=== PATIENT | female | born 1945 ===

== ENCOUNTER 2020-09-09 10:14 | Outpatient (REF) | payer MEDICARE, SELFPAY ==
--- NOTE | 2020-09-09 10:21 | MM_ITS ---
EXAMINATION: MM SCREENING DIGITAL BREAST TOMOSYNTHESIS, BILATERAL CLINICAL INFORMATION: Screening. Asymptomatic. Prior history papilloma and ADH. The lifetime risk of breast cancer based on the Tyrer-Cuzick Model is 16%. COMPARISON: Mammography: 09/04/2019, 09/02/2018, 08/20/2017 TECHNIQUE: Digital breast tomosynthesis is performed in both the craniocaudal and mediolateral oblique views along with computer-aided detection (CAD). Synthesized 2D images are generated from the tomosynthesis. FINDINGS: There are scattered areas of fibroglandular density (ACR BI-RADS breast composition Category b). There is stable scarring left breast upper outer quadrant. Some fine fibronodular parenchymal pattern is similar to previous exam. There is no developing density or interval architectural abnormality or abnormal calcifications. Low left axillary tail node again noted. No significant changes from prior studies. MM/MM tomosynthesis screening BI IMPRESSION: No significant changes from prior studies. ASSESSMENT: BI-RADS 2: Benign RECOMMENDATION: Routine annual mammography screening. This patient's information was entered into a reminder system with a target due date for their next mammogram.
== END 2020-09-09 10:15 | disposition home or self-care (01) ==
LOC: HO.MAMMO 10:14
PROVIDERS: PCP Internal Medicine; Visit Provider Internal Medicine
DX: Z12.31 Encounter for screening mammogram for malignant neoplasm of breast (principal)
CPT/HCPCS: 77063; 77067

== ENCOUNTER 2020-09-16 10:56 | Day surgery (SDC) | payer MEDICARE, SELFPAY ==
[2020-09-13 11:35] VITALS: BMI 38.0
--- NOTE | 2020-09-15 09:26 | P.CONAN_ITS ---
Documented by User: Allie Ahn 09/15/20 09:27 HPI - Anesthesia Eval Consult details Narrative: 75yo F for Colonoscopy [facility] Past Medical History Medical History (Updated 09/16/20 @ 11:34 by Tiana Ashley) Elevated cholesterol HTN (hypertension) IDDM (insulin dependent diabetes mellitus) Increased BMI Family History Family History (Updated 09/03/20 @ 08:52 by RENE Milligan) Father Diabetes Hypertension Mother No problems noted. Paternal Aunt Colon cancer Surgical History Surgical History (Updated 09/16/20 @ 11:28 by Tiana Ashley) H/O colonoscopy History of appendectomy History of cyst of breast Status post right knee replacement Social History Social History Smoking Status: Never smoker Use of substances other than those prescribed or required for medical reasons: No Advance Directives: No Advance Directives Information Provided: No Advance Directives on File: No Meds Allergies Allergy/AdvReac Type Severity Reaction Status Date / Time No Known Allergies Allergy Verified 09/03/20 08:49 Home Medications Medication Instructions Recorded Confirmed Type aspirin 1 tab PO DAILY 09/13/20 09/13/20 History dulaglutide [Trulicity] 1 mg SUBCUT QWEEK 09/13/20 09/13/20 History insulin detemir U-100 [Levemir 40 unit SUBCUT DAILY 09/13/20 09/13/20 History U-100 Insulin] losartan 1 tab PO DAILY 09/13/20 09/16/20 History metformin 1 tab PO BID 09/13/20 09/13/20 History simvastatin 1 tab PO BEDTIME 09/13/20 09/13/20 History Exam Exam Date and Time: September 15, 2020925 Height,Weight and Vital Signs: Height 5 ft 3 in Weight 97.522 kg Assessment and Plan Assessment Anesthesia Assessment: Chart Reviewed Documented by User: Tiana Ashley 09/16/20 11:35 [facility] Past Medical History Medical History (Updated 09/16/20 @ 11:34 by Tiana Ashley) Elevated cholesterol HTN (hypertension) IDDM (insulin dependent diabetes mellitus) Increased BMI Family History Family History (Updated 09/03/20 @ 08:52 by Alisson Mitchell Wilmer) Father Diabetes Hypertension Mother No problems noted. Paternal Aunt Colon cancer Family history of problems with anesthesia: No Surgical History Surgical History (Updated 09/16/20 @ 11:28 by Tiana Ashley) H/O colonoscopy History of appendectomy History of cyst of breast Status post right knee replacement History of Problems with Anesthesia: No Social History Social History Smoking Status: Never smoker Use of substances other than those prescribed or required for medical reasons: No Advance Directives: No Advance Directives Information Provided: No Advance Directives on File: No Meds Allergies Allergy/AdvReac Type Severity Reaction Status Date / Time No Known Allergies Allergy Verified 09/03/20 08:49 Home Medications Medication Instructions Recorded Confirmed Type aspirin 1 tab PO DAILY 09/13/20 09/13/20 History dulaglutide [Trulicity] 1 mg SUBCUT QWEEK 09/13/20 09/13/20 History insulin detemir U-100 [Levemir 40 unit SUBCUT DAILY 09/13/20 09/13/20 History U-100 Insulin] losartan 1 tab PO DAILY 09/13/20 09/16/20 History metformin 1 tab PO BID 09/13/20 09/13/20 History simvastatin 1 tab PO BEDTIME 09/13/20 09/13/20 History Exam Height,Weight and Vital Signs: Vital Signs Temp Pulse Resp BP Pulse Ox 09/16/20 11:28 97 F 81 18 200/68 H 98 Pertinent Lab Results Pertinent Lab Results: Lab Results 09/16/20 Range/Units 11:21 POC Glucose 116 H (60-115) mg/dL Airway Mallampati Class: III TM Dist: >3cm Neck ROM: Full Denture: Upper and Lower Heart: RRR Lungs: CTAB. Diminished Assessment and Plan Assessment Anesthesia Assessment: Anesthesia Plan Discussed and Chart Reviewed Final Anesthetic Review NPO: Yes ASA Class: III Final Preanesthetic Review: No Changes in Pt Med Stat, Meds/Allgs Chart Reviewed, Consent Obtained/Reviewed and Anes Risks/Benef Reviewed Patient Risk: Intermediate Procedure Risk: Low Anesthetic Plan Anesthetic Plan: MAC: Disposition: Standard PACU
--- NOTE | 2020-09-16 11:19 | MHC.SHP ---
Pre-Procedural Eval Section B Chief Complaint: SCREENING Relevant Family History (Specify if Yes): No Relevant Social History: None Present Medications: see Short Stay Collaborative assessment Medical History: Significant History (HTN, HLP, DM, ) History of Previous Operations: Relevant previous surgery/procedure and date(s) (appendectomy, knee replacement) Allergies: Allergies Allergy/AdvReac Type Severity Reaction Status Date / Time No Known Allergies Allergy Verified 09/03/20 08:49 Review of Systems Sugical H&P ROS: Negative: Constitution, Cardiovascular, Respiratory, Neurological, Psychiatric, Hem-Onc, Allergic/Immunologic, Gastrointestinal, Genitourinary, Musculoskeletal, Integumentary, Endocrine and Eyes/Ears/Nose/Throat Exam Surgical H&P Exam: Normal: HEENT, Normal: Heart, Normal: Lungs, Normal: Extremities, Normal: Abdomen, Normal: Skin and Normal: Neurological Plan Diagnosis/Plan: Unchanged Patient has been examined and remains a candidate for the planned procedure
--- NOTE | 2020-09-16 11:21 | PM.OP ---
Brief Operative Note Date of procedure: 09/16/20 Pre-op diagnosis: colon screen Post-op diagnosis: same Procedure: colonoscopy--see op note Surgeon: Grupo Neri MD Anesthesia: MAC Estimated blood loss (mL): 0 Condition: stable Disposition: PACU
--- NOTE | 2020-09-16 11:21 | W.PM.OPN ---
Operative Note Operative Note Narrative: Operative Information Procedure Description: Colonoscopy COLONOSCOPY Instrument: Olympus variable stiffness pediatric scope 190L Colonoscopy Monitoring: Vital signs and clinical assessment, continuous EKG monitoring, Pulse oximetry, Carbon Dioxide monitoring and blood pressure monitoring were done throughout the procedure. Colon withdrawal time was 29 minutes. Procedure: The patient was placed in the left lateral decubitis position and pre-procedure medications were administered. After a digital rectal examination of the ano-rectum, the video colonoscope was inserted into the rectum and advanced through the colon to the cecum The colonoscope was slowly withdrawn in a retrograde panoramic fashion and the colon mucosa was carefully examined including a retroflexed view of the rectum. Findings and interventions are described below. Procedure Difficulty: difficult due to looping, pressure applied Findings: Terminal Ileum-not intubated Ruelas diverticulosis with many wide mouthed tics including several that were inverted Cecum:normal Ascending Colon: normal Transverse Colon -normal Descending Colon:normal Sigmoid Colon: normal Rectum: Retroflexion with moderate sized inflammed internal hemorrhoids, grade II Anorectum - internal hemorrhoids seen on forward view Colon preparation: [place] Bowel Preparation Scale Right colon; 2 Transverse colon: 2 Left colon; 1 (0 = Unprepared colon segment with mucosa not seen due to solid stool that cannot be cleared. 1 = Portion of mucosa of the colon segment seen, but other areas of the colon segment not well seen due to staining, residual stool and/or opaque liquid. 2 = Minor amount of residual staining, small fragments of stool and/or opaque liquid, but mucosa of colon segment seen well. 3 = Entire mucosa of colon segment seen well with no residual staining, small fragments of stool or opaque liquid) Impression and Post Procedure Diagnosis: ruelas-diverticulosis internal hemorrhoids Plan: High fiber diet leaflet Avoid straining at stool, epsom salts and sitz bath, anusol supps or cream Repeat Colonoscopy in 5 years due to prep or earlier if clinically indicated next time use adult colonoscope Above findings were reviewed with the patient and relevant handouts were provided if indicated.
[2020-09-16 11:24] LABS: Glucose, Whole Blood 116 mg/dL (60-115)
[2020-09-16 11:28] VITALS: BP 200/68; PULSE 81; RESP 18; TEMP 36.1; O2SAT 98
[2020-09-16] MEDS: Lactated Ringers 1,000 ML 100 ML IVCONT (11:38)
[2020-09-16 12:23] VITALS: BP 88/53; PULSE 99; RESP 18; TEMP 36.5; O2SAT 95
[2020-09-16 12:36] VITALS: BP 146/67; PULSE 67; RESP 18; TEMP 36.1; O2SAT 97
--- NOTE | 2020-09-16 13:03 | HO.POSTANES ---
Post Anesthesia Evaluation Post Anesthesia Evaluation Vital Signs: Vital Signs Temp Pulse Resp BP Pulse Ox 09/16/20 12:36 97 F 67 18 146/67 H 97 09/16/20 12:23 97.7 F 99 18 88/53 L 95 09/16/20 11:28 97 F 81 18 200/68 H 98 Anesthesia: Monitored Mental Status: Awake Pain Control: Satisfactory Nausea/Vomiting: None Hydration: Adequate Anesthesia-Related Issues: No Anes. Related Issues
== END 2020-09-16 13:14 | disposition home or self-care (01) ==
PROVIDERS: PCP Internal Medicine; Visit Provider Internal Medicine Gastroenterology
PROC: 0DJD8ZZ Inspection of Lower Intestinal Tract, Via Natural or Artificial Opening Endoscopic (ICD-10-PCS; CPT 45378; principal; 2020-09-16 11:30)
DX: Z12.11 Encounter for screening for malignant neoplasm of colon (principal); K57.30 Diverticulosis of large intestine without perforation or abscess without bleeding; K64.1 Second degree hemorrhoids; I10 Essential (primary) hypertension; E11.9 Type 2 diabetes mellitus without complications; E78.00 Pure hypercholesterolemia, unspecified; Z79.4 Long term (current) use of insulin; Z79.899 Other long term (current) drug therapy; Z96.651 Presence of right artificial knee joint
CPT/HCPCS: G0121; 82947

== ENCOUNTER 2021-01-21 07:36 | Outpatient (REF) | payer MEDICARE, SELFPAY | END 2021-01-21 07:37 | disposition home or self-care (01) | LOC: HO.LAB 07:36 | PROVIDERS: Visit Provider Internal Medicine | DX: Z20.822 Contact with and (suspected) exposure to COVID-19 (principal) | CPT/HCPCS: 36415; C9803; U0003; U0005 ==

== ENCOUNTER 2021-08-10 10:31 | Outpatient (REF) | payer MEDICARE, SELFPAY ==
[2021-08-11 11:02] LABS: BV Int Neg Control Negative (Negative); BV Int Pos Control Positive (Positive)
== END 2021-08-10 10:32 | disposition home or self-care (01) ==
LOC: HO.LAB 10:31
PROVIDERS: Visit Provider Advanced Practice Midwife
DX: N89.8 Other specified noninflammatory disorders of vagina (principal); B37.3 Candidiasis of vulva and vagina
CPT/HCPCS: 87480; 87510; 87660; 99212

== ENCOUNTER 2021-11-25 11:38 | Outpatient (REF) | payer MEDICARE, SELFPAY ==
--- NOTE | ~2021-11-25 | MM_ITS ---
EXAMINATION: MM SCREENING DIGITAL BREAST TOMOSYNTHESIS, BILATERAL CLINICAL INFORMATION: Screening. Asymptomatic. Prior history left breast surgery 2010 (papilloma, focal ADH). The lifetime risk of breast cancer based on the Tyrer-Cuzick Model is 15%. COMPARISON: Mammography: 09/09/2020, 09/04/2019, 09/02/2018, 08/20/2017, 08/07/2016. TECHNIQUE: Digital breast tomosynthesis is performed in both the craniocaudal and mediolateral oblique views along with computer-aided detection (CAD). Synthesized 2D images are generated from the tomosynthesis. FINDINGS: There are scattered areas of fibroglandular density (ACR BI-RADS breast composition Category b). The right breast is unremarkable. There is no developing density or interval mass or architectural abnormality. Bilateral breast calcifications are similar to prior studies, predominantly vascular. Bilateral axilla and skin contours are unremarkable. Low left axillary tail node stable. There are post surgical changes left breast with mild scarring and mild reduced breast size. Small focal nodular asymmetry posterior central 6:00 position is more conspicuous when compared with prior studies. Patient will be recalled to further characterize for possible developing density. MM/MM tomosynthesis screening BI IMPRESSION: 1. Left: Small subtle nodular asymmetry posterior central 6:00 position, more conspicuous when compared with prior studies. 2. Right: No mammographic evidence of malignancy. ASSESSMENT: BI-RADS 0: Incomplete - Need Additional Imaging Evaluation RECOMMENDATION: 1. Additional views of the left breast (spot CC, spot ML). 2. Targeted ultrasound if warranted after review of the additional views. 3. Radiology department staff will contact the patient for additional imaging. This patient's information was entered into a reminder system with a target due date for their next mammogram.
--- NOTE | ~2021-11-25 | MM_ITS ---
EXAMINATION: BONE DENSITOMETRY CLINICAL INDICATION: Other specified disorders of bone density and structure. COMPARISON: Previous BD dated 09/03/2019 and baseline BD dated 01/21/2010. TECHNIQUE: Using a [employer] DXA System (software version: 13.1) manufactured by [employer], dual-energy x-ray absorptiometry was performed of the lumbar spine and left hip. The images are of good technical quality. Summary results are attached. FINDINGS: AP SPINE L1-L2 (excluding L3 and L4): The data of L1-L4 has been changed to exclude the L3 and L4 vertebral bodies, because degenerative sclerosis at these levels may cause overestimation of lumbar spine density. Current: BMD 0.980 g/cm2, Z-score -0.8, T-score -1.5, osteopenia, 8.5% increase from previous, 7.4% decrease from baseline (<5% change is not significant). Prior: BMD 0.903 g/cm2. Baseline: BMD 1.058 g/cm2. LEFT FEMUR, NECK: Current: BMD 0.694 g/cm2, Z-score -1.2, T-score -2.5, osteoporosis. Prior: BMD 0.883 g/cm2. Baseline: BMD 0.897 g/cm2. LEFT FEMUR, TOTAL: Current: BMD 0.715 g/cm2, Z-score -1.3, T-score -2.3, osteopenia, 18.1% decrease from previous, 27.6% decrease from baseline (<5% change is not significant). Prior: BMD 0.873 g/cm2. Baseline: BMD 0.987 g/cm2. IDENTIFIED RISK FACTORS: Secondary osteoporosis, menopause, hysterectomy. HISTORY OF FRACTURE: None listed. MEDICATIONS: None listed. MM/XR DEXA axial skeleton IMPRESSION: 1. DIAGNOSIS: Osteoporosis based on the lowest T-score value of -2.5 in the femoral neck applying World Health Organization criteria. 2. 10-YEAR FRACTURE RISK PREDICTION, FRAX: Major osteoporotic fracture (clinical spine, forearm, hip or shoulder) 8.6%. Hip fracture 2.5%. 3. Treatment Recommendations: NOF guidelines recommend consideration for treatment in postmenopausal women and men age 50 and older presenting with the following: -A hip or vertebral (clinical or morphometric) fracture. -T-score less than or equal to -2.5 at the femoral neck or spine after appropriate evaluation to exclude secondary causes. -Low bone mass at the hip or spine and a 10-year fracture probability by FRAX of greater than or equal to 3% for hip fracture or greater than or equal to 20% for major osteoporotic fracture based on the [place] adapted WHO algorithm. 4. Other Recommendations: All treatment decisions require clinical judgment and consideration of individual patient factors, including patient preferences, comorbidities, previous drug use, risk factors not captured in the FRAX model (e.g. frailty, falls, vitamin D deficiency, increased bone turnover, interval significant decline in bone density) and possible under or overestimation of fracture risk by FRAX. Additional medical evaluation for secondary cause of low bone mineral density may be appropriate. FUTURE SCAN RECOMMENDATION: People with diagnosed cases of osteoporosis or at high risk for fracture should have regular bone mineral density tests. For patients eligible for Medicare, routine testing is allowed once every 2 years. The testing frequency can be increased to one year for patients who have rapidly progressing disease, those who are receiving or discontinuing medical therapy to restore bone mass, or have additional risk factors.
--- NOTE | ~2021-11-25 | US_ITS ---
EXAMINATION: US VENOUS ULTRASOUND WITH DOPPLER LOWER EXTREMITY, BILATERAL CLINICAL INFORMATION: Pain in leg COMPARISON: None TECHNIQUE: Ultrasound of the deep veins is performed from the hip to the calf with compression sonography and color and pulse Doppler assessment. Spectral analysis with color-flow imaging is performed. FINDINGS: RIGHT: There is normal venous compression and respiratory variation and augmented flow. The visualized common femoral vein, superficial femoral vein, profunda femoral vein, popliteal vein, and the trifurcation region shows no evidence of deep venous thrombosis. Limited evaluation of the right mid femoral vein due to patient's inability to tolerate compression maneuvers were good color Doppler flow is visualized here. There is no significant popliteal fossa cyst. LEFT: There is normal venous compression and respiratory variation and augmented flow. The visualized common femoral vein, superficial femoral vein, profunda femoral vein, popliteal vein, and the trifurcation region shows no evidence of deep venous thrombosis. Left popliteal fossa Brown's cyst measuring 4.6 x 0.9 x 2.9 cm If the patient's symptoms persist, followup ultrasound in 5 days 7 days might be of value to exclude proximal propagation from a non-visualized calf vein. Nonspecific lymph nodes in the bilateral inguinal regions. US/US venous duplex LE BI IMPRESSION: No DVT demonstrated in the bilateral lower extremity. Left popliteal fossa Brown's cyst
== END 2021-11-25 11:39 | disposition home or self-care (01) ==
LOC: HO.MAMMO 11:38
PROVIDERS: PCP Internal Medicine; Visit Provider Internal Medicine
DX: Z12.31 Encounter for screening mammogram for malignant neoplasm of breast (principal); Z13.820 Encounter for screening for osteoporosis; M85.80 Other specified disorders of bone density and structure, unspecified site; Z78.0 Asymptomatic menopausal state; M79.606 Pain in leg, unspecified; M79.89 Other specified soft tissue disorders
CPT/HCPCS: 77063; 77067; 77080; 93970

== ENCOUNTER 2021-11-29 11:32 | Outpatient (REF) | payer MEDICARE, SELFPAY ==
[2021-11-29 11:53] LABS: MANUAL DIFF FLAG NO
[2021-11-29 12:20] LABS: Basophils Absolute Auto 0.1 X10*3/uL (0.0-0.2); Eosinophils Absolute Auto 0.2 X10*3/uL (0.0-0.4); Eosinophils Percent Auto 3.2 % (0-4); Hematocrit 37.4 % (37.0-47.0); Hemoglobin 11.5 g/dl (12.0-16.0); Imm Gran Abs Auto 0.02 X10*3/uL (0.00-0.03); Imm Gran Pct Auto 0.3 % (0.0-0.4); Lymphocytes Absolute Auto 1.6 X10*3/uL (1.2-4.9); Lymphocytes Percent Auto 27.4 % (20-40); Mean Corpuscular HGB Conc 30.7 g/dl (31.0-35.0); Mean Corpuscular Hemoglobin 27.8 pg (27.0-33.0); Mean Corpuscular Volume 90.6 fL (80.0-98.0); Mean Platelet Volume 11.7 fL (9.4-12.3); Monocytes Absolute Auto 0.6 X10*3/uL (0.1-1.2); Monocytes Percent Auto 10.6 % (2-11); Neutrophils Absolute Auto 3.4 x10*3/uL (2.0-8.3); Neutrophils Percent Auto 57.5 % (45-73); Platelet Count 220 X10*3/uL (160-400); Red Blood Count 4.13 X10*6/uL (4.20-5.50); Red Cell Distribution Width 13.2 % (11.0-16.0); White Blood Count 5.9 X10*3/uL (4.8-10.8)
[2021-11-29 12:51] LABS: Alanine Aminotransferase 23 U/L (0-31); Albumin Level 4.1 g/dL (3.5-5.0); Alkaline Phosphatase 61 U/L (39-117); Anion Gap 11 (12-20); Aspartate Amino Transferase 21 U/L (5-31); Bilirubin Total 0.5 mg/dL (0.0-1.0); Blood Urea Nitrogen 13 mg/dL (9-16); Calcium 10.8 mg/dL (8.4-10.2); Carbon Dioxide 29 mmol/L (22-29); Chloride 105 mmol/L (96-108); Cholesterol 162 mg/dL; Estimated Glomerular Filt Rate > 60; Glucose Random 106 mg/dL (60-115); HDL Cholesterol 57 mg/dL; LDL Cholesterol Calculated 87 mg/dl; Sodium 140 mmol/L (135-145); Total Protein 7.2 g/dL (6.5-8.0); Triglycerides 91 mg/dL
[2021-11-29 12:59] LABS: B Type Natriuretic Peptide 133 pg/mL (<100)
[2021-11-29 13:06] LABS: Estimated Average Glucose 151 mg/dL; Hemoglobin A1c % 6.9 %
== END 2021-11-29 11:33 | disposition home or self-care (01) ==
LOC: HO.LAB 11:32
PROVIDERS: PCP Internal Medicine; Visit Provider Nurse Practitioner Acute Care
DX: M79.89 Other specified soft tissue disorders (principal); M79.606 Pain in leg, unspecified; E78.00 Pure hypercholesterolemia, unspecified; E11.65 Type 2 diabetes mellitus with hyperglycemia; Z79.4 Long term (current) use of insulin
CPT/HCPCS: 36415; 80053; 80061; 83036; 83880; 85025

== ENCOUNTER 2021-12-01 10:44 | Outpatient (REF) | payer MEDICARE, SELFPAY ==
--- NOTE | ~2021-12-01 | MM_ITS ---
EXAMINATION: MM DIAGNOSTIC DIGITAL BREAST TOMOSYNTHESIS, LEFT US DIAGNOSTIC ULTRASOUND BREAST, LEFT CLINICAL INFORMATION: Recall from screening for subtle small nodular asymmetry posterior central 6:00 position, more conspicuous on recent imaging. COMPARISON: Mammography: 11/25/2021, 09/09/2020, 09/04/2019 TECHNIQUE: Digital breast tomosynthesis is performed. 2D images are generated from the tomosynthesis. The following views are obtained: Spot CC, spot ML x2. Ultrasound left breast is targeted to the inferior breast using grayscale imaging and color Doppler without and with harmonics. FINDINGS: There are scattered areas of fibroglandular density (ACR BI-RADS breast composition Category b). Additional views confirm small oval nodule, questionably increased from prior studies. Margins appear smooth. There are some scattered vascular and dermal calcifications overlying this area. Ultrasound demonstrates circumscribed hypoechoic nodule approximately 0.5 x 0.4 cm. There is suggestion of increased through-transmission of sound on harmonics. There is no posterior acoustic shadowing. Some fine mural internal echoes are present likely apocrine metaplasia. There is no peripheral or internal color flow. Results are discussed with the patient at time of visit, using an spanish medical interpreter. Finding for recall is believed to represent benign mildly complicated cyst. As a precaution, short interval six-month follow-up diagnostic left mammography will be requested. Repeat ultrasound may be performed at same visit if warranted. MM/MM tomosynthesis added views L IMPRESSION: Mildly complicated circumscribed avascular cyst posterior 6:00 position. ASSESSMENT: BI-RADS 3: Probably Benign RECOMMENDATION: Diagnostic left mammography in 6 months. This patient's information was entered into a reminder system with a target due date for their next mammogram.
--- NOTE | ~2021-12-01 | US_ITS ---
Targeted left breast ultrasound is included in single combined report along with the diagnostic left mammography under accession number [id number].
== END 2021-12-01 10:45 | disposition home or self-care (01) ==
LOC: HO.MAMMO 10:44
PROVIDERS: PCP Internal Medicine; Visit Provider Internal Medicine
DX: N63.25 Unspecified lump in the left breast, overlapping quadrants (principal); N64.89 Other specified disorders of breast
CPT/HCPCS: 76642; 77061; 77065

== ENCOUNTER 2022-02-22 11:02 | Outpatient (REF) | payer OTHER, SELFPAY ==
[2022-02-22 12:39] LABS: MANUAL DIFF FLAG NO
[2022-02-22 13:05] LABS: Basophils Percent Auto 0.6 % (0-2); Eosinophils Absolute Auto 0.2 X10*3/uL (0.0-0.4); Eosinophils Percent Auto 2.3 % (0-4); Hematocrit 37.1 % (37.0-47.0); Hemoglobin 11.9 g/dl (12.0-16.0); Imm Gran Abs Auto 0.02 X10*3/uL (0.00-0.03); Imm Gran Pct Auto 0.3 % (0.0-0.4); Lymphocytes Absolute Auto 1.7 X10*3/uL (1.2-4.9); Lymphocytes Percent Auto 25.3 % (20-40); Mean Corpuscular HGB Conc 32.1 g/dl (31.0-35.0); Mean Corpuscular Hemoglobin 28.1 pg (27.0-33.0); Mean Corpuscular Volume 87.7 fL (80.0-98.0); Mean Platelet Volume 12.3 fL (9.4-12.3); Monocytes Absolute Auto 0.7 X10*3/uL (0.1-1.2); Monocytes Percent Auto 9.9 % (2-11); Neutrophils Absolute Auto 4.1 x10*3/uL (2.0-8.3); Neutrophils Percent Auto 61.6 % (45-73); Platelet Count 220 X10*3/uL (160-400); Red Blood Count 4.23 X10*6/uL (4.20-5.50); Red Cell Distribution Width 14.5 % (11.0-16.0); White Blood Count 6.6 X10*3/uL (4.8-10.8)
[2022-02-22 13:29] LABS: Alanine Aminotransferase 20 U/L (0-31); Albumin Level 4.1 g/dL (3.5-5.0); Alkaline Phosphatase 57 U/L (39-117); Anion Gap 13 (12-20); Aspartate Amino Transferase 22 U/L (5-31); Bilirubin Total 0.5 mg/dL (0.0-1.0); Blood Urea Nitrogen 14 mg/dL (9-16); Calcium 10.5 mg/dL (8.4-10.2); Carbon Dioxide 24 mmol/L (22-29); Chloride 105 mmol/L (96-108); Cholesterol 161 mg/dL; Estimated Glomerular Filt Rate > 60; Glucose Random 153 mg/dL (60-115); HDL Cholesterol 47 mg/dL; LDL Cholesterol Calculated 81 mg/dl; Potassium 4.6 mmol/L (3.3-5.1); Sodium 137 mmol/L (135-145); Total Protein 7.3 g/dL (6.5-8.0); Triglycerides 168 mg/dL
[2022-02-22 13:50] LABS: Free T4 (Free Thyroxine) 1.04 ng/dL (0.71-1.85); Thyroid Stimulating Hormone 1.43 uIU/mL (0.32-4.0)
[2022-02-22 14:10] LABS: Vitamin B12 224 pg/mL (200-900)
[2022-02-22 14:11] LABS: Creatinine Urine 65.89 mg/dL; Microalbum/Creatinine Ratio Ur 230.6 ug/mg cr
[2022-02-23 15:02] LABS: Calcium (PTHI) 10.5 mg/dL (8.6-10.4); PTHI 72 pg/mL (16-77)
[2022-02-24 16:06] LABS: Calcium, Ionized 5.6 mg/dL (4.8-5.6)
== END 2022-02-22 11:03 | disposition home or self-care (01) ==
LOC: HO.LAB 11:02
PROVIDERS: PCP Internal Medicine; Visit Provider Internal Medicine Endocrinology, Diabetes & Metabolism
DX: E11.65 Type 2 diabetes mellitus with hyperglycemia (principal); E83.52 Hypercalcemia; I10 Essential (primary) hypertension; Z79.899 Other long term (current) drug therapy; Z79.4 Long term (current) use of insulin
CPT/HCPCS: 36415; 80053; 80061; 82043; 82306; 82330; 82607; 82746; 82947; 83036; 83970; 84439; 84443; 85025; 99202

== ENCOUNTER → 2022-03-29 10:59 | Outpatient (BNVA) | payer OTHER, SELFPAY | PROVIDERS: PCP Internal Medicine; Visit Provider Dietitian, Registered | DX: E11.65 Type 2 diabetes mellitus with hyperglycemia (principal); Z79.4 Long term (current) use of insulin | CPT/HCPCS: 97802 ==

== ENCOUNTER → 2022-05-18 10:31 | Outpatient (BNVA) | payer OTHER, SELFPAY | PROVIDERS: PCP Internal Medicine; Visit Provider Dietitian, Registered | DX: E11.65 Type 2 diabetes mellitus with hyperglycemia (principal); Z79.4 Long term (current) use of insulin; Z71.3 Dietary counseling and surveillance | CPT/HCPCS: 97803 ==

== ENCOUNTER → 2022-05-24 10:48 | Outpatient (BNVA) | payer OTHER, SELFPAY | PROVIDERS: PCP Internal Medicine; Visit Provider Internal Medicine Endocrinology, Diabetes & Metabolism | DX: E11.65 Type 2 diabetes mellitus with hyperglycemia (principal); Z79.4 Long term (current) use of insulin | CPT/HCPCS: 82947; 99212 ==

== ENCOUNTER 2022-06-08 09:40 | Outpatient (REF) | payer OTHER, SELFPAY ==
[2022-06-08 10:55] LABS: Appearance Urine HAZY; Color Urine YELLOW; Glucose Urine UA >=1000 MG/DL (NEG); Leukocyte Esterase Urine NEG (NEG); Nitrite Urine NEG (NEG); Urine Blood NEG (NEG); Urine Ketones NEG (NEG); Urine Protein 1+ MG/DL (NEG-TRACE)
[2022-06-08 11:05] LABS: Anion Gap 11 (12-20); Blood Urea Nitrogen 15 mg/dL (9-16); Carbon Dioxide 24 mmol/L (22-29); Chloride 109 mmol/L (96-108); Estimated Glomerular Filt Rate > 60; Glucose Random 130 mg/dL (60-115); Potassium 4.5 mmol/L (3.3-5.1); Sodium 139 mmol/L (135-145)
[2022-06-08 11:23] LABS: Bacteria Urine 4+ /LPF; RBC Urine 0 /HPF (0); Squamous Epithelial Cell Urine 3+ /LPF
[2022-06-08 12:00] LABS: Creatinine Urine 70.37 mg/dL; Microalbum/Creatinine Ratio Ur 369.4 ug/mg cr
== END 2022-06-08 09:41 | disposition home or self-care (01) ==
LOC: HO.LAB 09:40
PROVIDERS: PCP Internal Medicine; Visit Provider Internal Medicine Endocrinology, Diabetes & Metabolism
DX: E11.65 Type 2 diabetes mellitus with hyperglycemia (principal); Z79.4 Long term (current) use of insulin
CPT/HCPCS: 36415; 80048; 81001; 82043

== ENCOUNTER → 2022-06-13 10:06 | Outpatient (BNVA) | payer OTHER, SELFPAY | PROVIDERS: PCP Internal Medicine; Visit Provider Registered Nurse Diabetes Educator | DX: E11.65 Type 2 diabetes mellitus with hyperglycemia (principal); Z79.4 Long term (current) use of insulin | CPT/HCPCS: 99211 ==

== ENCOUNTER 2022-06-19 14:29 | Outpatient (REF) | payer OTHER, SELFPAY ==
--- NOTE | ~2022-06-19 | MM_ITS ---
EXAMINATION: MM DIAGNOSTIC DIGITAL BREAST TOMOSYNTHESIS, LEFT US DIAGNOSTIC ULTRASOUND BREAST, LEFT CLINICAL INFORMATION: Short interval six-month follow-up probable benign complicated cyst posterior 6:00 left breast. The lifetime risk of breast cancer based on the Tyrer-Cuzick Model is 3%. COMPARISON: Mammography: 12/01/2021, 11/25/2021 (BI-RADS 0), 09/09/2020, 09/04/2019, 09/02/2018. TECHNIQUE: Digital breast tomosynthesis is performed in both the craniocaudal and mediolateral oblique views along with computer-aided detection (CAD). Synthesized 2D images are generated from the tomosynthesis. Additional magnification left CC and magnification left ML x2 views are obtained. Ultrasound left breast is targeted to the inferior breast using grayscale imaging and color Doppler without and with harmonics. FINDINGS: There are scattered areas of fibroglandular density (ACR BI-RADS breast composition Category b). The nodule for follow-up posterior 6:00 position is stable to slightly decreased. There are some calcifications overlying this area prompting additional magnification views. Magnification views show fine loosely grouped calcifications in retrospect likely similar to prior studies dating back to 2018. Calcifications are better appreciated with magnification views. Calcifications will be reassessed again in 6 months at time of annual bilateral mammography. Ultrasound left breast demonstrates small cyst 6:00 position measuring 4 x 3 mm, slightly decreased in size from prior ultrasound measurements 5 x 4 mm. Margins are circumscribed. There is slight increased through-transmission of sound. No associated color flow. Results are discussed with the patient and family at time of visit, using an trading specialist. MM/MM tomosynthesis diagnostic LT IMPRESSION: -Small cyst posterior 6:00 position. No solid mass or developing density. -There are loosely grouped calcifications posterior 6:00 position, in retrospect likely chronic. ASSESSMENT: BI-RADS 3: Probably Benign RECOMMENDATION: Magnification views for calcifications left breast at time of annual bilateral mammography, due in 6 months. This patient's information was entered into a reminder system with a target due date for their next mammogram.
== END 2022-06-19 14:30 | disposition home or self-care (01) ==
LOC: HO.MAMMO 14:29
PROVIDERS: PCP Internal Medicine; Visit Provider Internal Medicine
DX: R92.2 Inconclusive mammogram (principal)
CPT/HCPCS: 76642; 77061; 77065

== ENCOUNTER 2022-06-30 09:48 | Outpatient (REF) | payer OTHER, SELFPAY ==
[2022-06-30 11:21] LABS: Appearance Urine CLEAR; Color Urine YELLOW; Glucose Urine UA NEG (NEG); Leukocyte Esterase Urine NEG (NEG); Nitrite Urine NEG (NEG); Specific Gravity - Urine 1.015 (1.005-1.025); UACC Culture Trigger NO; Urine Blood 1+ (NEG); Urine Ketones NEG (NEG); Urine Protein NEG (NEG-TRACE)
[2022-06-30 11:56] LABS: Creatinine Urine 165.27 mg/dL
[2022-06-30 12:02] LABS: Bacteria Urine 1+ /LPF; RBC Urine 0-2 /HPF (0); Squamous Epithelial Cell Urine 2+ /LPF; WBC Urine 0 /HPF (0-4)
== END 2022-06-30 09:49 | disposition home or self-care (01) ==
LOC: HO.LAB 09:48
PROVIDERS: PCP Internal Medicine; Visit Provider Internal Medicine
DX: E11.65 Type 2 diabetes mellitus with hyperglycemia (principal); Z79.4 Long term (current) use of insulin
CPT/HCPCS: 81001; 81003

== ENCOUNTER → 2022-07-11 10:39 | Outpatient (BNVA) | payer OTHER, SELFPAY | PROVIDERS: PCP Internal Medicine; Visit Provider Dietitian, Registered | DX: E11.65 Type 2 diabetes mellitus with hyperglycemia (principal); E66.9 Obesity, unspecified; Z79.4 Long term (current) use of insulin; Z71.3 Dietary counseling and surveillance; Z68.37 Body mass index [BMI] 37.0-37.9, adult | CPT/HCPCS: 97803 ==

== ENCOUNTER → 2022-11-21 10:07 | Outpatient (BNVA) | payer OTHER, SELFPAY | PROVIDERS: PCP Internal Medicine; Visit Provider Internal Medicine Endocrinology, Diabetes & Metabolism | DX: E11.65 Type 2 diabetes mellitus with hyperglycemia (principal); I10 Essential (primary) hypertension; E78.00 Pure hypercholesterolemia, unspecified; E78.5 Hyperlipidemia, unspecified; E55.9 Vitamin D deficiency, unspecified; Z86.73 Personal history of transient ischemic attack (TIA), and cerebral infarction without residual deficits; Z83.3 Family history of diabetes mellitus; Z79.4 Long term (current) use of insulin; Z79.899 Other long term (current) drug therapy | CPT/HCPCS: 82947; 83036; 99212 ==

== ENCOUNTER 2022-12-19 15:04 | Outpatient (REF) | payer OTHER, SELFPAY ==
--- NOTE | ~2022-12-19 | CT_ITS ---
EXAMINATION: CT HEAD WITHOUT CONTRAST CLINICAL INFORMATION: Other symptoms and signs involving cognitive functions and awareness. COMPARISON: None TECHNIQUE: Contiguous axial imaging was performed from the skull base to vertex without intravenous administration of contrast. This CT examination was performed using dose optimization techniques as appropriate, variously including the following: *Automated exposure control *Adjustment of mA and/or kV according to patient size (this includes techniques or standardized protocols for targeted exams where dose is matched to indication/reason for exam; i.e. extremities or head) *Use of iterative reconstruction technique DLP: 836 mGy-cm FINDINGS: There is no acute intra-axial, extra-axial bleed, masses or midline shift. There is no acute infarction evolution. There is no edema. The lateral ventricles are symmetrical in size and configuration but enlarged. There is mild periventricular hypodensity in both cerebral hemispheres likely chronic small vessel ischemic changes but no mass effect seen. Mild atherosclerotic calcification of right internal carotid artery is noted. Bone windows reveal no calvarial abnormality. Paranasal sinuses and mastoid air cells are well aerated with mucoperiosteal thickening involving left maxillary sinus. There is no scalp soft tissue abnormality. There is benign hyperostosis frontalis interna. CT/CT head/brain wo IV con IMPRESSION: 1. No acute intracranial process seen. 2. Age-related cerebral volume loss with chronic small vessel ischemic changes. 3. Mild mucoperiosteal thickening left maxillary sinus.
== END 2022-12-19 15:05 | disposition home or self-care (01) ==
LOC: HO.CT 15:04
PROVIDERS: PCP Internal Medicine; Visit Provider Internal Medicine
DX: R41.89 Other symptoms and signs involving cognitive functions and awareness (principal)
CPT/HCPCS: 70450

== ENCOUNTER 2022-12-22 12:21 | Outpatient (REF) | payer OTHER, SELFPAY ==
--- NOTE | ~2022-12-22 | MM_ITS ---
EXAMINATION: MM DIAGNOSTIC DIGITAL BREAST TOMOSYNTHESIS, BILATERAL CLINICAL INFORMATION: Six-month follow-up left breast density and calcifications. Status post previous excisional biopsy of the left breast. The lifetime risk of breast cancer based on the Tyrer-Cuzick Model is 2.6%. COMPARISON: Mammography: 06/19/2022 and studies dating back to 08/07/2016. TECHNIQUE: Digital breast tomosynthesis is performed in both the craniocaudal and mediolateral oblique views along with computer-aided detection (CAD). Synthesized 2D images are generated from the tomosynthesis. Additional spot magnification views of the left breast in craniocaudal and 90 degree mediolateral views performed. FINDINGS: There are scattered areas of fibroglandular density (ACR BI-RADS breast composition Category b). There is a stable parenchymal pattern of the right breast without new abnormal dominant mass or suspicious grouping of microcalcifications. The density and calcifications appear similar with the density measuring 7 x 5 mm compared to 6 x 5 mm on prior study. No branching or linear forms of calcifications identified. Six-month follow-up left breast mammogram with magnification views is suggested. There is left breast architecture distortion about the upper outer aspect from previous excisional biopsy. Results are provided to the patient at time of visit by the technologist. MM/MM tomosynthesis diagnostic BI IMPRESSION: Essentially stable appearance of left breast as described. Six-month follow-up left breast study with magnification views recommended. ASSESSMENT: BI-RADS 3: Probably Benign RECOMMENDATION: Diagnostic mammography in 6 months. This patient's information was entered into a reminder system with a target due date for their next mammogram.
[2022-12-26 21:08] LABS: Treponema pallidum Ab FTA ABS Nonreactive (Nonreactive)
== END 2022-12-22 12:22 | disposition home or self-care (01) ==
LOC: HO.MAMMO 12:21
PROVIDERS: PCP Internal Medicine; Visit Provider Internal Medicine
DX: R92.1 Mammographic calcification found on diagnostic imaging of breast (principal); R41.89 Other symptoms and signs involving cognitive functions and awareness
CPT/HCPCS: 36415; 77062; 77066; 86780

== ENCOUNTER 2023-03-21 13:02 | Inpatient (IN) | payer OTHER, SELFPAY ==
[2023-03-21] VITALS (8 sets, daily range): BP systolic 124–166; BP diastolic 63–94; PULSE 81–104; RESP 18–32; TEMP 36.8–38.1; O2SAT 92–98; BMI 35.5
--- NOTE | ~2023-03-21 | XR_ITS ---
EXAMINATION: XR CHEST CLINICAL INFORMATION: Shortness of breath, cough. COMPARISON: None available. TECHNIQUE: 2 views of the chest were obtained. FINDINGS: Mild asymmetric patchy opacities are seen in the right mid and lower lung lara. The left lung appears clear. There are no pleural effusions. The heart and mediastinal structures are unremarkable. XR/XR chest 2V IMPRESSION: Mild asymmetric patchy opacities in the right mid and lower lung lara are nonspecific, but suggest an infectious/inflammatory process.
--- NOTE | ~2023-03-21 | CT_ITS ---
EXAMINATION: CT CHEST WITHOUT CONTRAST CLINICAL INFORMATION: Possible pneumonia COMPARISON: Chest x-ray dated 03/21/2023 TECHNIQUE: Multidetector volumetric CT imaging of the chest was done. Axial MIP volume rendering provided. Sagittal and coronal reformatted images were obtained. This CT examination was performed using dose optimization techniques as appropriate, variously including the following: *Automated exposure control *Adjustment of mA and/or kV according to patient size (this includes techniques or standardized protocols for targeted exams where dose is matched to indication/reason for exam; i.e. extremities or head) *Use of iterative reconstruction technique DLP: 270.17 mGy-cm FINDINGS: LUNGS: Multifocal centrilobular solid and groundglass pulmonary opacities, seen to a greater degree in the bilateral lower lobes and to a lesser degree in the upper lobes likely reflect multifocal aspiration/infection. Large largest lung nodule measures 1.1 cm (5:179). Central airways are patent. MEDIASTINUM: Main pulmonary artery is enlarged measuring 3.9 cm, likely reflecting underlying pulmonary arterial hypertension. Scattered coronary artery atherosclerotic calcifications. No mediastinal adenopathy. PLEURA: There is no pleural effusion. No pleural mass or thickening. AXILLA: No lymphadenopathy. UPPER ABDOMEN: Unremarkable. OSSEOUS STRUCTURES/SOFT TISSUES: Unremarkable. CT/CT chest wo IV con IMPRESSION: * Multifocal centrilobular solid and groundglass pulmonary opacities, seen to a greater degree in the bilateral lower lobes and to a lesser degree in the upper lobes likely reflect multifocal aspiration/infection. * Large largest lung nodule measures 1.1 cm. According to the UPDATED 2017 Fleischner Society recommendations, the advised followup imaging for a single solid nodule measuring 8 mm or greater is: Consider CT, PET/CT, or tissue sampling at 3 months. * Main pulmonary artery is enlarged measuring 3.9 cm, likely reflecting underlying pulmonary arterial hypertension.
--- NOTE | 2023-03-21 13:12 | ED_ITS ---
HPI - SOB/Dyspnea General Chief Complaint: Dyspnea Stated Complaint: SOB, cough, sick for a couple days per EMS Source: patient and family Mode of arrival: EMS Limitations: language barrier (Malay speaking only, strategy lead used) History of Present Illness HPI Narrative: Open speech She complains of pleuritic chest pain. She points to her sternum and states that she has pain when she coughs and takes a deep breath. She states that she has had fatigue in today she was very weak and is having difficulty standing and walking secondary to her weakness. She has had a decreased appetite but has been drinking fluid in drinking soup. Patient states that for the past 2 days she has had watery stool, 2 stools per day, no blood in the stools. The patient went to a urgent care clinic yesterday and was started on Zithromax for bronchitis. She was also started on Tessalon Perles for cough. According to her family, she was more short of breath this morning and appeared to be very weak therefore the called an ambulance and she was brought to the emergency department for evaluation Related Data Home Medications Medication Instructions Recorded Confirmed azithromycin 250 mg tablet 250 mg PO DAILY 03/21/23 03/21/23 (Zithromax Z-Matthew) dulaglutide 3 mg/0.5 mL 3 mg subcut MO 03/21/23 03/21/23 subcutaneous pen injector insulin detemir U-100 100 unit/mL 20 unit subcut BEDTIME 03/21/23 03/21/23 (3 mL) subcutaneous pen (Levemir FlexTouch U-100 Insulin) Previous Rx's Medication Instructions Recorded Diabetic shoes #1 ea 03/25/21 compr.stocking,knee,long,small #2 ea 11/25/21 (T.E.D. Knee Ewwpvl-Z-Ylng [facility] [place]) PAD LINERS #100 ea 04/04/22 cholecalciferol (vitamin D3) 50 50 mcg PO DAILY #90 tabs 04/10/22 mcg (2,000 unit) tablet aspirin 81 mg tablet,delayed 81 mg PO DAILY #90 ea 04/20/22 release simvastatin 20 mg tablet 20 mg PO BEDTIME #90 tabs 10/07/22 blood sugar diagnostic (FreeStyle #3 ea 11/15/22 Lite Strips) lancets 33 gauge (TRUEplus Lancets) #100 ea 11/15/22 hydrochlorothiazide 25 mg tablet 25 mg PO DAILY #90 tabs 12/04/22 DIABETIC SHOE #1 ea 12/05/22 flash glucose scanning reader #1 ea 12/05/22 (FreeStyle Rickey 2 Combes) flash glucose sensor (FreeStyle #6 kits 12/05/22 Rickey 2 Sensor kit) losartan 100 mg tablet 100 mg PO DAILY #90 tabs 02/02/23 pen needle, diabetic 31 gauge x #100 ea 02/02/23 3/16 (BD Ultra-Fine Mini Pen Needle) benzonatate 100 mg capsule 100 mg PO TID PRN cough #20 caps 03/20/23 Allergies Allergy/AdvReac Type Severity Reaction Status Date / Time No Known Allergies Allergy Verified 03/20/23 10:19 Review of Systems Review of Systems: Yes all other systems are reviewed and are negative [facility] Past Medical History [facility] Narrative: Social history: She lives at home with family. She denies tobacco, alcohol and drug use. Medical History Anemia Breast cancer screening by mammogram Breast nodule Constipation Dysuria Elevated cholesterol HTN (hypertension) Hyperlipidemia Obesity (BMI 30-39.9) Osteopenia Pain and swelling of lower extremity TIA (transient ischemic attack) Type 2 diabetes mellitus with hyperglycemia Vitamin D deficiency Yeast infection involving the vagina and surrounding area Surgical History History of appendectomy History of cyst of breast Status post right knee replacement Family History Family History Father Diabetes Hypertension Mother No problems noted. Paternal Aunt Colon cancer Social History Social History Housing: Apartment Alcohol intake: never Patient Tobacco Use Status: Never used Tobacco Smoked in Last 30 Days: No e-Cigarette/Vaping Use: Never Used Second Hand Smoke Exposure: No Advance Directives: No service: No Current occupational status: retired Cognitive needs: No Hearing needs: No Vision needs: Yes Physical Exam Vital Signs: Vital Signs: Last Vital Signs Temp 100.5 F H 03/21/23 17:19 Pulse 86 03/21/23 17:19 Resp 20 03/21/23 17:19 BP 124/67 03/21/23 17:19 Pulse Ox 98 03/21/23 17:19 O2 Del Method Nasal Cannula 03/21/23 17:19 O2 Flow Rate 3 03/21/23 17:19 BMI result Body Mass Index 35.5 Const: Other: Awake, alert, female patient, she is using accessory muscles to breathe, she appears dyspneic and tachypneic. She answers questions appropriate HEENT: Head: Yes normal to inspection, Yes normocephalic and Yes atraumatic Ears: external ears normal General nose exam: Normal external nose present Face and sinus: Yes normal facial exam Mouth: Normal oral and palatal mucosa present Throat: Yes posterior oropharynx normal Eyes: General: appearance normal, both eyes and all related structures Pupils: Equal, round and reactive pupils present Neck: Neck: Yes normal visual inspection, Yes no lymphadenopathy, Yes trachea midline and Yes supple Chest: Chest palpation & inspection: normal inspection of the chest and normal palpation of entire chest wall Resp: Other: Patient is dyspneic and tachypneic, she has diffuse wheezing with no rales or rhonchi, breath sounds symmetric bilateral Cardio: Rate: regular rate Rhythm: regular rhythm Heart sounds: S1 normal heart sound present, S2 normal heart sound present and no murmurs GI: Inspection: Yes normal to inspection Palpation (GI): Soft to palpation, nontender and no guarding Auscultation: normal bowel sounds : General: Yes no CVA tenderness Back/Spine/Pelvis: Back: no CVA tenderness Skin: General skin exam: no rashes or lesions noted Neuro: Other: Oriented to person, place answers all questions appropriately Cranial nerves: Yes CN's II-XII intact bilaterally and Yes Equal, round and reactive pupils present Cognition (Neuro): normal cognition Motor exam (neuro): 5/5 motor strength present throughout Extrem: Other: Trace pitting edema bilaterally symmetric Psych: Appearance: grossly normal Speech and movement: Normal speech and movement present Affect: normal affect Attitude: cooperative Medications Administered Generic Name Dose Route Start Last Admin Trade Name Freq PRN Reason Stop Dose Admin Enoxaparin Sodium 40 mg 03/21/23 17:00 03/21/23 17:55 Enoxaparin Sodium 40 Mg/0.4 Ml Syringe SUBCUT 40 mg Q24H AHSAN Administration Furosemide 40 mg 03/21/23 18:00 03/21/23 17:55 Furosemide 40 Mg/4 Ml Vial IVPUSH 40 mg BID@0900,1800 AHSAN Administration Protocol Discontinued Medications Generic Name Dose Route Start Last Admin Trade Name Wil PRN Reason Stop Dose Admin Acetaminophen 975 mg 03/21/23 17:35 03/21/23 17:54 Acetaminophen 325 Mg Tablet PO 03/21/23 17:36 975 mg ONCE STA Administration Furosemide 40 mg 03/21/23 14:40 03/21/23 14:49 Furosemide 40 Mg/4 Ml Vial IVPUSH 03/21/23 14:41 40 mg ONCE ONE Administration Protocol Ceftriaxone Sodium 1 gm/ 50 mls @ 100 mls/hr 03/21/23 14:29 03/21/23 15:49 Sodium Chloride IV 03/21/23 14:58 Infused ONCE ONE Infusion Azithromycin 500 mg/ Sodium 250 mls @ 125 mls/hr 03/21/23 14:29 03/21/23 15:48 Chloride IV 03/21/23 16:28 125 mls/hr ONCE ONE Administration Medical Decision Making Medical Decision Making MDM Narrative: 77-year-old female with history of diabetes mellitus, hypertension, hyperlipidemia, stroke 2006 presents emergency department for evaluation of shortness of breath x1 week, productive cough x3 days, decreased appetite, m yalgias, arthralgias, weakness and fatigue. She has also had 2 days of loose stools 2 stools per day with no blood in the stools. Patient came in by ambulance and she was too weak to stand and walk according to the family. Patient's vital signs revealed an elevated blood pressure of 166/89, elevated heart rate 103 and elevated respiratory rate of 22. She was afebrile and her O2 saturation was 93% on room air. Lung exam revealed diffuse wheezing with no rhonchi or rales. She has trace pitting edema bilaterally symmetric. I ordered a CBC, CMP, PT/INR, troponin, BNP, urinalysis, blood cultures x2, EKG, two view chest x-ray. I will also check a COVID-19. 1441: My interpretation laboratory data as follows: WBC normal 5400, anemia with an H&H of 11 and 33.8. Lower platelet count a [id number] is new. Coags normal. Sodium low 131-patient takes hydrochlorothiazide. Glucose elevated to 12. Lactic acid normal 1.4. High sensitive troponin I elevated at 57.1-this will be repeated at 17:00 hours. BNP elevated 468. Chest x-ray interpreted by me as right lower lobe infiltrate. This is consistent with radiology reading as well. The patient presentation is consistent with pneumonia which may have triggered cardiac ischemia and CHF in the patient. The patient's EKG does not reveal any acute STEMI but does have ischemic changes in 1 and aVL. The patient does have an elevated troponin I will repeat this at 17:30 hours. I will discuss the patient's presentation with the covering laboratory manager and covering hospitalist. 1758: Repeat troponin increased to 330.9. This is most likely caused by type 2 injury possibly triggered by her pneumonia. I did inform the covering hospitalist, Dr. Mckeon about the increase troponin. Differential Diagnosis 1441: Differential diagnosis includes but is not limited to pneumonia, pulmonary edema, bronchitis, COVID-19, viral syndrome, electrolyte abnormality, anemia, STEMI, NSTEMI Admission/Observation Consideration of admission/observation: Escalation of care including admission/observation considered Lab Data [facility] Lab Attestation statement: I reviewed the patient's lab results. See MDM 03/21/23 14:00 03/21/23 14:00 Labs: Lab Results 03/21/23 03/21/23 03/21/23 Range/Units 14:00 14:00 14:00 WBC 5.4 (4.8-10.8) X10*3/uL RBC 3.87 L (4.20-5.50) X10*6/uL Hgb 11.0 L (12.0-16.0) g/dl Hct 33.8 L (37.0-47.0) % MCV 87.3 (80.0-98.0) fL MCH 28.4 (27.0-33.0) pg MCHC 32.5 (31.0-35.0) g/dl RDW 13.6 (11.0-16.0) % Plt Count 139 L D (160-400) X10*3/uL MPV 12.5 H (9.4-12.3) fL Immature Gran % (Auto) 0.4 (0.0-0.4) % Neut % (Auto) 83.3 H (45-73) % Lymph % (Auto) 8.4 L (20-40) % Prowers % (Auto) 7.3 (2-11) % Eos % (Auto) 0.0 (0-4) % Baso % (Auto) 0.6 (0-2) % Lymph # (Auto) 0.5 L (1.2-4.9) X10*3/uL [place]rowers # (Auto) 0.4 (0.1-1.2) X10*3/uL Eos # (Auto) 0.0 (0.0-0.4) X10*3/uL Baso # (Auto) 0.0 (0.0-0.2) X10*3/uL Abs Immat Gran (auto) 0.02 (0.00-0.03) X10*3/uL Absolute Neuts (auto) 4.5 (2.0-8.3) x10*3/uL Absolute Nucleated RBC 0.000 (0.0-0.012) X10*3/uL Nucleated RBC % (auto) 0.0 (0.0-0.2) /100WBC PT 12.3 (10.0-13.1) SEC INR 1.1 (0.9-1.1) APTT 28.3 (26.0-36.4) SEC Sodium 131 L (135-145) mmol/L Potassium 4.0 (3.3-5.1) mmol/L Chloride 98 (96-108) mmol/L Carbon Dioxide 25 (22-29) mmol/L Anion Gap 12 (12-20) BUN 12 (9-16) mg/dL Creatinine 0.84 (0.5-1.4) mg/dL Estim Creat Clear Calc 66.6 Estimated GFR > 60 Random Glucose 212 H (60-115) mg/dL Lactic Acid (0.5-2.0) mmol/L Calcium 9.2 D (8.4-10.2) mg/dL Total Bilirubin 0.5 (0.0-1.0) mg/dL AST 21 (5-31) U/L ALT 14 (0-31) U/L Alkaline Phosphatase 51 (39-117) U/L Troponin I High Sens (<3.5-17.0) ng/L B-Natriuretic Peptide (<100) pg/mL Total Protein 6.9 (6.5-8.0) g/dL Albumin 4.0 (3.5-5.0) g/dL Lipase 40 (8-78) U/L COVID-19 (MAHSA) (Negative) COVID-19 Clin Com 03/21/23 03/21/23 03/21/23 Range/Units 14:00 14:00 14:00 WBC (4.8-10.8) X10*3/uL RBC (4.20-5.50) X10*6/uL Hgb (12.0-16.0) g/dl Hct (37.0-47.0) % MCV (80.0-98.0) fL MCH (27.0-33.0) pg MCHC (31.0-35.0) g/dl RDW (11.0-16.0) % Plt Count (160-400) X10*3/uL MPV (9.4-12.3) fL Immature Gran % (Auto) (0.0-0.4) % Neut % (Auto) (45-73) % Lymph % (Auto) (20-40) % Prowers % (Auto) (2-11) % Eos % (Auto) (0-4) % Baso % (Auto) (0-2) % Lymph # (Auto) (1.2-4.9) X10*3/uL Prowers # (Auto) (0.1-1.2) X10*3/uL Eos # (Auto) (0.0-0.4) X10*3/uL Baso # (Auto) (0.0-0.2) X10*3/uL Abs Immat Gran (auto) (0.00-0.03) X10*3/uL Absolute Neuts (auto) (2.0-8.3) x10*3/uL Absolute Nucleated RBC (0.0-0.012) X10*3/uL Nucleated RBC % (auto) (0.0-0.2) /100WBC PT (10.0-13.1) SEC INR (0.9-1.1) APTT (26.0-36.4) SEC Sodium (135-145) mmol/L Potassium (3.3-5.1) mmol/L Chloride (96-108) mmol/L Carbon Dioxide (22-29) mmol/L Anion Gap (12-20) BUN (9-16) mg/dL Creatinine (0.5-1.4) mg/dL Estim Creat Clear Calc Estimated GFR Random Glucose (60-115) mg/dL Lactic Acid 1.4 (0.5-2.0) mmol/L Calcium (8.4-10.2) mg/dL Total Bilirubin (0.0-1.0) mg/dL AST (5-31) U/L ALT (0-31) U/L Alkaline Phosphatase (39-117) U/L Troponin I High Sens 57.1 H* (<3.5-17.0) ng/L B-Natriuretic Peptide 468 H (<100) pg/mL Total Protein (6.5-8.0) g/dL Albumin (3.5-5.0) g/dL Lipase (8-78) U/L COVID-19 (MAHSA) (Negative) COVID-19 Clin Com 03/21/23 Range/Units 14:00 WBC (4.8-10.8) X10*3/uL RBC (4.20-5.50) X10*6/uL Hgb (12.0-16.0) g/dl Hct (37.0-47.0) % MCV (80.0-98.0) fL MCH (27.0-33.0) pg MCHC (31.0-35.0) g/dl RDW (11.0-16.0) % Plt Count (160-400) X10*3/uL MPV (9.4-12.3) fL Immature Gran % (Auto) (0.0-0.4) % Neut % (Auto) (45-73) % Lymph % (Auto) (20-40) % Prowers % (Auto) (2-11) % Eos % (Auto) (0-4) % Baso % (Auto) (0-2) % Lymph # (Auto) (1.2-4.9) X10*3/uL P[place]ers # (Auto) (0.1-1.2) X10*3/uL Eos # (Auto) (0.0-0.4) X10*3/uL Baso # (Auto) (0.0-0.2) X10*3/uL Abs Immat Gran (auto) (0.00-0.03) X10*3/uL Absolute Neuts (auto) (2.0-8.3) x10*3/uL Absolute Nucleated RBC (0.0-0.012) X10*3/uL Nucleated RBC % (auto) (0.0-0.2) /100WBC PT (10.0-13.1) SEC INR (0.9-1.1) APTT (26.0-36.4) SEC Sodium (135-145) mmol/L Potassium (3.3-5.1) mmol/L Chloride (96-108) mmol/L Carbon Dioxide (22-29) mmol/L Anion Gap (12-20) BUN (9-16) mg/dL Creatinine (0.5-1.4) mg/dL Estim Creat Clear Calc Estimated GFR Random Glucose (60-115) mg/dL Lactic Acid (0.5-2.0) mmol/L Calcium (8.4-10.2) mg/dL Total Bilirubin (0.0-1.0) mg/dL AST (5-31) U/L ALT (0-31) U/L Alkaline Phosphatase (39-117) U/L Troponin I High Sens (<3.5-17.0) ng/L B-Natriuretic Peptide (<100) pg/mL Total Protein (6.5-8.0) g/dL Albumin (3.5-5.0) g/dL Lipase (8-78) U/L COVID-19 (MAHSA) Negative (Negative) COVID-19 Clin Com See Note Independent Interpretation I performed an independent interpretation of an: EKG and Plain X-Ray Interpretation: My independent interpretation patient's two view chest x-rays right lower lobe pneumonia. My independent interpretation patient's 12 EKG done at 1425: Normal sinus rhythm rate of 93, normal VA interval prolonged QRS duration of 150 milliseconds, prolonged QTC of 514 milliseconds, ST segment depression less than 1 mm in leads 1 and aVL with inverted T-wave in aVL, RR prime complex V 1 suggesting incomplete right bundle-branch block, no ST segment elevation. Compared to EKG dated 09/14 2011 these findings are new Radiology Impression Discussion of test interpretation with radiology: I have reviewed the radiologist's reading. Radiologist Impression: XR chest 2V IMPRESSION: Mild asymmetric patchy opacities in the right mid and lower lung lara are nonspecific, but suggest an infectious/inflammatory process. Dictated By:Arash Davis MD Independent Historian Clinical information obtained from an independent historian. History obtained from or confirmed by: Other (Son and [id number]) Critical Care Time Critical Care Time Critical Care Time: Yes Total Critical Care Time: 55 Attestation: Critical Care: The patient was critically ill with a high probability of imminent or life threatening deterioration. I spent greater than 30 minutes of discontinuous time evaluating the patient,delivering critical care at the bedside, discussing and evaluating pertinent data with consultants. Critical ca re time does not include time spent performing separately billable procedures or teaching. Total time spent performing critical care was minutes. Discharge Plan Discharge Clinical Impression: Pneumonia, Pulmonary edema, Myocardial injury, Elevated troponin Patient Disposition: Admitted As Inpatient
--- NOTE | 2023-03-21 13:13 | ECG_ITS ---
Test Reason : Press of breath, chest pain Blood Pressure : / mmHG Vent. Rate : 093 BPM Atrial Rate : 093 BPM P-R Int : 172 ms QRS Dur : 150 ms QT Int : 414 ms P-R-T Axes : 040 -53 072 degrees QTc Int : 514 ms Normal sinus rhythm Left axis deviation Left ventricular hypertrophy with QRS widening and repolarization abnormality ( R in aVL , Jorge product , Romhilt-Mo ) Abnormal ECG When compared with ECG of 14-SEP-2011 08:03, Vent. rate has increased BY 33 BPM Questionable change in QRS duration Referred By: Edson Guevara Electronically Signed By:GIANFRANCO RINCON MD
--- NOTE | 2023-03-21 13:18 | PC.NURSE ---
Pt arrived via EMS, pt appears to have abdominal breathing, RR elevated, HR tach w/ PVC, MD at bedside with internal communications specialist and family at bedside. denies f/chills/sore throat/n/v.
[2023-03-21 14:09] LABS: MANUAL DIFF FLAG NO
[2023-03-21 14:20] LABS: Partial Thromboplastin Time 28.3 SEC (26.0-36.4)
[2023-03-21 14:22] LABS: Basophils Percent Auto 0.6 % (0-2); Hematocrit 33.8 % (37.0-47.0); Imm Gran Abs Auto 0.02 X10*3/uL (0.00-0.03); Imm Gran Pct Auto 0.4 % (0.0-0.4); Lactic Acid 1.4 mmol/L (0.5-2.0); Lymphocytes Absolute Auto 0.5 X10*3/uL (1.2-4.9); Lymphocytes Percent Auto 8.4 % (20-40); Mean Corpuscular HGB Conc 32.5 g/dl (31.0-35.0); Mean Corpuscular Hemoglobin 28.4 pg (27.0-33.0); Mean Corpuscular Volume 87.3 fL (80.0-98.0); Mean Platelet Volume 12.5 fL (9.4-12.3); Monocytes Absolute Auto 0.4 X10*3/uL (0.1-1.2); Monocytes Percent Auto 7.3 % (2-11); Neutrophils Absolute Auto 4.5 x10*3/uL (2.0-8.3); Neutrophils Percent Auto 83.3 % (45-73); Platelet Count 139 X10*3/uL (160-400); Red Blood Count 3.87 X10*6/uL (4.20-5.50); Red Cell Distribution Width 13.6 % (11.0-16.0); White Blood Count 5.4 X10*3/uL (4.8-10.8)
[2023-03-21 14:27] LABS: Alanine Aminotransferase 14 U/L (0-31); Alkaline Phosphatase 51 U/L (39-117); Anion Gap 12 (12-20); Aspartate Amino Transferase 21 U/L (5-31); Bilirubin Total 0.5 mg/dL (0.0-1.0); Blood Urea Nitrogen 12 mg/dL (9-16); Calcium 9.2 mg/dL (8.4-10.2); Carbon Dioxide 25 mmol/L (22-29); Chloride 98 mmol/L (96-108); Creatinine Clr Calc Pharmacy 66.6; Estimated Glomerular Filt Rate > 60; Glucose Random 212 mg/dL (60-115); Lipase 40 U/L (8-78); Sodium 131 mmol/L (135-145); Total Protein 6.9 g/dL (6.5-8.0)
[2023-03-21 14:28] LABS: COVID-19 Test Negative (Negative); IDNOW Serial# 9DB6401D
[2023-03-21 14:32] LABS: B Type Natriuretic Peptide 468 pg/mL (<100)
[2023-03-21 14:48] LABS: Troponin-I High Sensitivity 57.1 ng/L (<3.5-17.0)
[2023-03-21] MEDS: cefTRIAXone sodium 1 GM in 0.9 % Sodium Chloride 50 ML IV (14:49)
[2023-03-21] MEDS: Furosemide 40 MG/4 ML VIAL IVPUSH ×2 (14:49→17:55)
[2023-03-21 14:52] LABS: INTERNATIONAL NORM RATIO 1.1 (0.9-1.1); Prothrombin Time 12.3 SEC (10.0-13.1)
--- NOTE | 2023-03-21 15:24 | MHC.EDTECH ---
THIS PCT ASSUME CARE OF PATIENT AT 1500 ,VITALS SIGN TAKEN ,PURE WICK IN PLACE ,PATIENT RESTING QUIETLY IN BED .
[2023-03-21] MEDS: Azithromycin 500 MG in 0.9 % Sodium Chloride 250 ML 125 MG IV (15:48)
--- NOTE | 2023-03-21 16:12 | P.HPHOSP_ITS ---
The patient was seen and evaluated with Pao Andrade NP. I agree with her note, assessment and plan with the following. A 77 years old lady admitted with sepsis 2/2 CAP. on broad spectrum antibiotics pending final blood cultures with evidence of new onset CHF exacerbation pending ECHO and cardiology eval. Rest of evaluations by BRIM BLOCKER note. History of Present Illness Date of Service: 03/21/23 Chief Complaint: SOB 77 year old women presenting with pleuritic chest pain worse with cough and ta isela deep breaths. over the last 3 days she has had a dry cough, chills and chest pain that been pretty consistent with any aggravating factors like coughing or deep breathing. She also reported some fatigue. She denied any nausea, vomiting, diarrhea, sick contacts, recent travel, recent illness, trauma, fever. She went to see her primary care provider yesterday and went to the urgent care clinic was started on antibiotics however she continued to feel unwell with decrease in appetite and Nonbloody watery stools. She became short of breath and her family decided to call an ambulance today. In the ER, chest x-ray was showing patchy opacities in the right mid and lower lung lara possi sudhakar suggestive of infectious versus inflammatory process. Her BNP was also noted to be elevated at 468 however she was not noted to have any lower extremity edema or JVD noted. She did not have a white count but did have a fever of 100.5 with tachycardia and tachypnea. She received a dose of Rocephin, azithromycin, IV Lasix. She will be admitted for further management and treatment of acute CHF and community-acquired pneumonia. Review of Systems Review of Systems: Denies any recent fever chills or decrease in appetite respiratory reports cough cardiovascular see HPI gastrointestinal see HPI genitourinary denies any dysuria frequency or hematuria musculoskeletal denies any joint pain or swelling neuropsych denies any weakness or seizures all other systems reviewed are negative [facility] Medical History Anemia Breast cancer screening by mammogram Breast nodule Constipation Dysuria Elevated cholesterol HTN (hypertension) Hyperlipidemia Obesity (BMI 30-39.9) Osteopenia Pain and swelling of lower extremity TIA (transient ischemic attack) Type 2 diabetes mellitus with hyperglycemia Vitamin D deficiency Yeast infection involving the vagina and surrounding area Family History Father Diabetes Hypertension Mother No problems noted. Paternal Aunt Colon cancer Surgical History History of appendectomy History of cyst of breast Status post right knee replacement Social History Housing: Apartment Alcohol intake: never Patient Tobacco Use Status: Never used Tobacco Smoked in Last 30 Days: No e-Cigarette/Vaping Use: Never Used Second Hand Smoke Exposure: No Advance Directives: No service: No Current occupational status: retired Cognitive needs: No Hearing needs: No Vision needs: Yes Meds Allergies Allergy/AdvReac Type Severity Reaction Status Date / Time No Known Allergies Allergy Verified 03/20/23 10:19 Active Medications: Current Medications Azithromycin 500 mg/ Sodium (Chloride) 250 mls @ 125 mls/hr IV ONCE ONE Stop: 03/21/23 16:28 Last Admin: 03/21/23 15:48 Dose: 125 mls/hr Pharmacy Consult (Consult Rx Perform Med Rec) 1 each MISCELLANE ONCE PRN PRN Reason: Consult order Home Medications Medication Instructions Recorded Confirmed Last Taken Type azithromycin 250 mg tablet 250 mg PO DAILY 03/21/23 03/21/23 03/21/23 History (Zithromax Z-Matthew) dulaglutide 3 mg/0.5 mL 3 mg subcut MO 03/21/23 03/21/23 03/19/23 History subcutaneous pen injector insulin detemir U-100 100 unit/mL 20 unit subcut BEDTIME 03/21/23 03/21/23 03/20/23 History (3 mL) subcutaneous pen (Levemir FlexTouch U-100 Insulin) Physical Exam Vital Signs and Narrative: Vital Signs: Last Vital Signs Temp 99.6 F 03/21/23 15:23 Pulse 104 H 03/21/23 15:23 Resp 20 03/21/23 15:23 BP 148/77 H 03/21/23 15:23 Pulse Ox 92 03/21/23 15:23 O2 Del Method Room Air 03/21/23 15:23 BMI result Body Mass Index 35.5 Appearing in no acute distress head is normocephalic atraumatic eyes pupils are PERRLA sclera is anicteric mouth throat mucous membranes are intact and moist neck is supple no lymphadenopathy, no JVD noted lung sounds expiratory wheezes heart regular rate rhythm, clear S1, S2 positive bowel sounds, abdomen is soft, nontender neuro patient is alert x3, no focal deficits Results Labs 03/21/23 14:00 03/21/23 14:00 Labs: Laboratory Results - last 24 hr 03/21/23 03/21/23 03/21/23 14:00 14:00 14:00 MCV 87.3 MCH 28.4 MCHC 32.5 RDW 13.6 Plt Count 139 L D MPV 12.5 H Immature Gran % (Auto) 0.4 Neut % (Auto) 83.3 H Lymph % (Auto) 8.4 L [place] % (Auto) 7.3 Eos % (Auto) 0.0 Baso % (Auto) 0.6 Lymph # (Auto) 0.5 L [place] # (Auto) 0.4 Eos # (Auto) 0.0 Baso # (Auto) 0.0 Abs Immat Gran (auto) 0.02 Absolute Neuts (auto) 4.5 Absolute Nucleated RBC 0.000 Nucleated RBC % (auto) 0.0 PT 12.3 INR 1.1 APTT 28.3 Anion Gap 12 Estim Creat Clear Calc 66.6 Estimated GFR > 60 Random Glucose 212 H Lactic Acid Calcium 9.2 D Total Bilirubin 0.5 AST 21 ALT 14 Alkaline Phosphatase 51 Troponin I High Sens B-Natriuretic Peptide Total Protein 6.9 Albumin 4.0 Lipase 40 COVID-19 ([facility]) COVID-19 Clin Com 03/21/23 03/21/23 03/21/23 14:00 14:00 14:00 MCV MCH MCHC RDW Plt Count MPV Immature Gran % (Auto) Neut % (Auto) Lymph % (Auto) [place] % (Auto) Eos % (Auto) Baso % (Auto) Lymph # (Auto) [place] # (Auto) Eos # (Auto) Baso # (Auto) Abs Immat Gran (auto) Absolute Neuts (auto) Absolute Nucleated RBC Nucleated RBC % (auto) PT INR APTT Anion Gap Estim Creat Clear Calc Estimated GFR Random Glucose Lactic Acid 1.4 Calcium Total Bilirubin AST ALT Alkaline Phosphatase Troponin I High Sens 57.1 H* B-Natriuretic Peptide 468 H Total Protein Albumin Lipase COVID-19 ([facility]) COVID-19 Clin Com 03/21/23 14:00 MCV MCH MCHC RDW Plt Count MPV Immature Gran % (Auto) Neut % (Auto) Lymph % (Auto) [place] % (Auto) Eos % (Auto) Baso % (Auto) Lymph # (Auto) [place] # (Auto) Eos # (Auto) Baso # (Auto) Abs Immat Gran (auto) Absolute Neuts (auto) Absolute Nucleated RBC Nucleated RBC % (auto) PT INR APTT Anion Gap Estim Creat Clear Calc Estimated GFR Random Glucose Lactic Acid Calcium Total Bilirubin AST ALT Alkaline Phosphatase Troponin I High Sens B-Natriuretic Peptide Total Protein Albumin Lipase COVID-19 ([facility]) Negative COVID-19 Clin Com See Note Imaging Radiologist's Impressions: Impressions Chest X-Ray 03/21/23 13:44 IMPRESSION: Mild asymmetric patchy opacities in the right mid and lower lung lara are nonspecific, but suggest an infectious/inflammatory process. Assessment and Plan (1) Pneumonia: Qualifiers: Laterality: right Lung location: lower lobe of lung Pneumonia type: due to unspecified organism Qualified Code(s): J18.9 - Pneumonia, unspecified o rganism Status: Acute Plan 77 year old women admitted with acut CHF and CAP Sepsis secondary to CAP Tachycardia, tachypnea, fever Dry cough, add Mucinex Rocephin and azithromycin suplemental oxygen as needed robitussin for cough follow cx chest CT to better assess for pna Acute CHF, unspecified no history of CHF will obtain echo follow labs cardiology consult monitor on telemetry elevated troponin no chest pain check 2nd trop likely secondary to CHF Hypertension continue home medications HLD statin Diabetes mellitus 2 ss, ada diet Obesity. BMI 35.5 Discussed importance of weight management as this may be contributing to worsening of other comorbidities DVT prophylaxis with Lovenox Attending Dr. moctezuma Full code Two midnights for treatment of acute CHF and CAP requiring IV diuretics and antibiotics Time Spent With Patient Time: Total time managing care of this patient today ____ minutes. Quality Stroke Does the patient have a stroke diagnosis?: No VTE Prior VTE?: No VTE Risk Level:: Medical - moderate - high VTE Device Contraindication: Treatment Not Indicated VTE Drug Contraindication: N/A - Med Ordered
--- NOTE | 2023-03-21 16:16 | PHA.MEDREC ---
Pharmacy Consult ? Medication Reconciliation Pharmacy has completed the medication reconciliation.
--- NOTE | 2023-03-21 17:29 | MHC.EDTECH ---
PATIENT REPEATED TROP DRAWN ,URINE SAMPLE COLLECTED AND SENT TO LAB ,PATIENT OUT PUT IS 550 ML ,RUBEN LOBO IS AWARE OF PATIENT HIGH TEMP OF 100.5 ,VITALS SIGN TAKEN .
[2023-03-21 17:33] LABS: Appearance Urine Clear; Color Urine Yellow; Glucose Urine UA Negative (Negative); Leukocyte Esterase Urine Negative (Negative); Nitrite Urine Positive (Negative); PH 5.5 (5.0-9.0); UMIC TRIGGER UACC YES; Urine Blood Trace (Negative); Urine Ketones Negative (Negative); Urine Protein 300 (3+) mg/dL (Neg-Trace)
[2023-03-21 17:35] LABS: Bacteria Urine Trace (None Seen); Hyaline Casts Urine 0-2 /LPF (0-2); Squamous Epithelial Cell Urine 0-2 /HPF (0-2); UACC Culture Trigger YES; WBC Urine 0-5 /HPF (0-5)
[2023-03-21] MEDS: Acetaminophen 325 MG TABLET 975 MG PO (17:54)
[2023-03-21 17:55] LABS: Troponin-I High Sensitivity 330.9 ng/L (<3.5-17.0)
[2023-03-21] MEDS: Enoxaparin Sodium 40 MG/0.4 ML SYRINGE SUBCUT (17:55)
--- NOTE | 2023-03-21 19:14 | PC.NURSE ---
Assumed care for pt. Pt aox4 resting at the bedside. Breaths are even, regular, and labored. O2 sat 96% on 1L NC. Sinus tach on monitor with HR 100. No apparent distress noted. Reports no pain at this time. Purewick in place. 600 cc of clear yellow urine noted on urine collection container. Pt pending bed assignment and aware of plan of care. Will continue to monitor.
[2023-03-21] MEDS: Insulin Glargine,Hum.rec.anlog 100 UNIT/ML 10 ML VIAL 14 UNIT SUBCUT (20:58)
[2023-03-21] MEDS: guaiFENesin LA 600 MG TAB.ER.12H PO (20:58)
[2023-03-21] MEDS: Atorvastatin Calcium 10 MG TABLET PO (20:58)
[2023-03-21] MEDS: Insulin Lispro 100 UNIT/ML 3 ML VIAL SUBCUT (20:58)
[2023-03-21 21:25] LABS: Glucose, Whole Blood 168 mg/dL (60-115)
--- NOTE | 2023-03-21 21:36 | MHC.EDTECH ---
PATIENT WAS INCONTINENT OF URINE ,PLUS PURE WICK EMPTY 750 ML OUT PUT ,CARE GIVEN BEDDING CHANGE .
--- NOTE | 2023-03-22 | ECG_ITS ---
Test Reason : tachycardia Blood Pressure : / mmHG Vent. Rate : 092 BPM Atrial Rate : 000 BPM P-R Int : 000 ms QRS Dur : 146 ms QT Int : 452 ms P-R-T Axes : 000 -57 -36 degrees QTc Int : 558 ms Atrial fibrillation Right bundle branch block Left anterior fascicular block Bifascicular block Minimal voltage criteria for LVH, may be normal variant ( R in aVL ) T wave abnormality, consider lateral ischemia Abnormal ECG When compared with ECG of 21-MAR-2023 14:25, Atrial fibrillation has replaced Sinus rhythm (RBBB and left anterior fascicular block) is now Present Referred By: Emmanuelle Cruz Electronically Signed By:GIANFRANCO RINCON MD
[2023-03-22 04:00] VITALS: BP 154/73; PULSE 80; RESP 18; TEMP 37.3; O2SAT 93
[2023-03-22] MEDS: 0.9 % Sodium Chloride Flush 3 ML SYRINGE IVFLUSH ×3 (05:00→20:16)
--- NOTE | 2023-03-22 07:00 | CA_ITS ---
Transthoracic Echocardiogram Patient (Last, First, Middle): Danii Sullivan L Gender: Female Date of : 1945 Age: 77 Procedure Date: 03/22/2023 Procedure Type: Transthoracic E[place]ocardiogram [place] [facility] [place]: 165.1 cm Weight: 96.62 kg BSA: 2.03 m2 Heart Rate: 59 bpm BP: 142 / 68 mmHg Statistics Professor: MADIE Referring MD: Pao Andrade NP Warp Dyeing Vat Tender: Steven Whitt MD Symptoms: chf Study Quality: Technically Difficult ECG Rhythm: Sinus with extra beats Conclusions: - 1. Low normal LV systolic function with mild LVH with LVEF of 50-55% with pseudonormal filling pattern 2. Mildly dilated left atrium 3. Mild aortic regurgitation 4. Normal RV systolic pressure 5. No gross pericardial effusion Findings Left Ventricle Normal left ventricular cavity size. There is mildly increased left ventricular wall thickness. The left ventricular systolic function is low normal. The visually estimated ejection fraction is between 50-55%. Regional wall motion abnormalities can not be excluded due to suboptimal endocardial definition. Spectral Doppler is indicative of a pseudonormal filling pattern. E/E prime ratio is between 8 and 15 consistent with indeterminate filling pressures. Right Ventricle Normal right ventricular cavity size and systolic function. Atria The left atrium is mildly dilated. There is lipomatous hypertrophy of the interatrial septum. Interatrial shunt cannot be excluded. The right atrium was not well visualized. Aortic Valve The aortic valve was not well visualized. There is mild calcification of the aortic valve. The peak aortic gradient is 13 mmHg.The mean gradient is 7 mmHg. There is mild aortic valve regurgitation. Mitral Valve The mitral valve was not well visualized. There is mild anterior and posterior mitral leaflet thickening. There is mild mitral annular calcification. There is trace mitral valve regurgitation. There is no mitral valve stenosis. Pulmonic Valve The pulmonic valve was not well visualized. Tricuspid Valve Likely normal tricuspid valve structure and function. There is mild tricuspid valve regurgitation. The right ventricular systolic pressure is normal. The right ventricular systolic pressure is 24 mmHg. Normal right atrial pressure. There is no evidence of pulmonary hypertension. Great Vessels The aorta was not well visualized. The pulmonary artery was not well visualized. Venous The inferior vena cava is normal in size and collapses greater than 50% with inspiration. Pericardium/Pleural There is no evidence of pericardial effusion. Prior Study Comparison No prior study available for comparison. Measurements 2D Linear Measurements IVSd: 1.50 0.6-0.9/0.6-1.0 cm LVIDd: 5.16 3.9-5.3/4.2-5.9 cm LVIDd Index: 2.54 2.4-3.2/2.2-3.1 cm/m2 LVIDs: 3.20 2.0-3.6 cm LVPWd: 1.21 0.7-1.1 cm LA Diam: 4.10 2.7-3.8/3.0-4.0 cm LAIDs Index: 2.02 1.5-2.3 cm/m2 LV Mass: 364.06 67-162/88-224 g LV Mass Index: 179.34 43-95/49-115 g/m2 LVOT Diam: 2.20 3.0+(-)1.3 cm 2D Systolic Function EF 4C: 55.90 >55% EF 2C: 46.20 >55% EF BiP: 50.90 >55% Mitral Valve MV Pk E: 0.70 MV PK A: 0.64 MV Decel Time: 250.00 E/A: 1.10 E'Lateral: 4.70 E'Medial: 4.13 E/E' Med: 16.90 E/E' Lat: 14.80 PHT: 73.00 MVA PHT: 3.01 Decel [place]: 2.79 Aortic Valve AoV Pk Goran: 1.77 AoV Mn Goran: 1.26 AoV VTI: 0.36 AoV Pk Grad: 13.00 Aov Mn Grad: 7.00 SOMMER Cont.VTI: 2.52 AI Pk Goran: 3.83 AI [place]: 1.41 LVOT LVOT Pk Goran: 1.23 LVOT Mn Goran: 0.85 LVOT VTI: 0.24 LVOT Pk Grad: 6.00 LVOT Mn Grad: 3.00 LVOT Diam: 2.20 LVOT Area: 3.80 Diastolic Function MV Pk E: 0.70 MV Pk A: 0.64 E/A: 1.10 E'Medial: 4.13 E/E' Med: 16.90 E' Laterial: 4.70 E/E' Lat: 14.80 Right Ventricle TAPSE (mm): 25.70 TVS' Goran: 10.30 Tricuspid Valve TR Pk Ogran: 2.29 TR Pk Grad: 21.00 RA Press: 3.00 RVSP: 24.00 Great Vessels Aorta Sinus of Valsalva: 3.80 2.0-3.5 cm Ao Asc: 3.80 2.1-3.4 cm Updated in Other Vendor System with Status of Final Steven Whitt MD electronically signed on 03/22/2023 5:14:20 PM with status of Final
[2023-03-22 07:07] LABS: B Type Natriuretic Peptide 571 pg/mL (<100)
[2023-03-22 07:10] LABS: Alanine Aminotransferase 17 U/L (0-31); Albumin Level 3.8 g/dL (3.5-5.0); Alkaline Phosphatase 46 U/L (39-117); Anion Gap 15 (12-20); Aspartate Amino Transferase 32 U/L (5-31); Bilirubin Total 0.4 mg/dL (0.0-1.0); Blood Urea Nitrogen 17 mg/dL (9-16); Calcium 9.2 mg/dL (8.4-10.2); Carbon Dioxide 26 mmol/L (22-29); Chloride 96 mmol/L (96-108); Creatinine Clr Calc Pharmacy 67.3; Estimated Glomerular Filt Rate > 60; Glucose Random 150 mg/dL (60-115); Potassium 3.9 mmol/L (3.3-5.1); Sodium 133 mmol/L (135-145); Total Protein 6.5 g/dL (6.5-8.0)
[2023-03-22] MEDS: hydroCHLOROthiazide 25 MG TABLET PO (07:21)
[2023-03-22] MEDS: Aspirin Enteric Coated 81 MG TABLET.DR PO (07:21)
[2023-03-22] MEDS: Furosemide 40 MG/4 ML VIAL IVPUSH (07:21)
[2023-03-22] MEDS: Losartan Potassium 50 MG TABLET 100 MG PO (07:22)
[2023-03-22] MEDS: Cholecalciferol (Vitamin D3) 25 MCG TABLET 50 MCG PO (07:22)
[2023-03-22] MEDS: guaiFENesin LA 600 MG TAB.ER.12H PO ×2 (07:22→21:22)
[2023-03-22 07:24] VITALS: BP 141/71; PULSE 69
[2023-03-22 07:32] LABS: Glucose, Whole Blood 145 mg/dL (60-115)
[2023-03-22 07:36] VITALS: BP 142/68; PULSE 72; RESP 24; TEMP 36.4; O2SAT 98
--- NOTE | 2023-03-22 10:27 | P.CONCA_ITS ---
History of Present Illness History of Present Illness Date of Service: 03/22/23 Requesting physician: Emmanuelle Cruz Consult reason: other ( elevated cardiac biomarkers) Chief complaint: CHF,CAP Narrative: I was consulted to see Danii in cardiology consultation today for elevated cardiac biomarkers. History was obtained with help of sports agent. Patient came to the hospital with progressively not feeling well, progressive shortness of breath, cough not able to expectorate sputum, fever as well as wheezing. Patient continued to get worse with shortness of breath and had more pain with breathing and event to decided come to the emergency room. In the emergency room she was noted by chest x-ray to have multifocal airspace disease consistent with pneumonia. Subsequent CT scan also confirmed findings of multifocal pneumonia. Patient continues to have chest pain appears to be short of breath. Biomarkers were done which showed rising troponins as well as elevated BNP. She has no clear symptoms of orthopnea or leg edema. She has no prior history of coronary artery disease or congestive heart failure. She has multiple risk factors for the same. Patient has limited functionality related to her prior joint replacement and walks with the help of a walker but generally having no exertional shortness of breath chest pain as per the son was present in the room. Patient appears toxic However she says she feels better than yesterday. She has received IV Lasix with she says not great diuretic response. Her int zach and output chart to not suggest significant diuresis. Review of Systems Constitutional: Constitutional: Reports body ache(s), Reports chills, Reports fatigue, Reports fever(s), Reports lethargy and Reports malaise Eyes: Eyes: Reports no additional eye complaints Cardiovascular: Cardiovascular: Denies chest pain with activity, Denies leg edema, Denies lightheadedness, Denies Loss of Consciousness, Denies palpitations and Reports dyspnea on exertion Respiratory: Respiratory: Reports cough, Reports pain on inspiration, Reports dyspnea on exertion and Reports wheezing Gastrointestinal: Gastrointestinal: Reports no additional gastrointestinal complaints Musculoskeletal: Musculoskeletal: Reports no additional musculoskeletal complaints Integumentary/Breasts: Skin/Breast: Reports system reviewed and no additional complaints, except as docu Neurologic: Reports system reviewed and no additional complaints, except as documented Endocrine: Endocrine: Reports fatigue and Denies palpitations Allergic/Immunologic: Allergic/Immunologic: Reports wheezing PMFSH Past Medical History Medical History Anemia Breast cancer screening by mammogram Breast nodule Constipation Dysuria Elevated cholesterol HTN (hypertension) Hyperlipidemia Obesity (BMI 30-39.9) Osteopenia Pain and swelling of lower extremity TIA (transient ischemic attack) Type 2 diabetes mellitus with hyperglycemia Vitamin D deficiency Yeast infection involving the vagina and surrounding area Family History Family History Father Diabetes Hypertension Mother No problems noted. Paternal Aunt Colon cancer Surgical History Surgical History History of appendectomy History of cyst of breast Status post right knee replacement Social History Social History Housing: Apartment Unable to assess alcohol history related to: Unable to respond Alcohol intake: never Patient Tobacco Use Status: Never used Tobacco Smoked in Last 30 Days: No e-Cigarette/Vaping Use: Never Used Second Hand Smoke Exposure: No Use of substances other than those prescribed or required for medical reasons: Unknown Currently Displaying Signs/Symptoms of Drug Intoxication Withdrawal: No Advance Directives: No Do you have thoughts of harming others: None Do you have a plan to hurt others: No Plan Recently lost weight without trying: Unsure Nutrition Risks: No Nutritional Risk Patient : No : No Poor oral hygiene: No service: No Current occupational status: retired Cognitive needs: No Hearing needs: No Vision needs: Yes Meds Allergies Allergy/AdvReac Type Severity Reaction Status Date / Time No Known Allergies Allergy Verified 03/20/23 10:19 Active Medications: Current Medications Acetaminophen (Acetaminophen 325 Mg Tablet) 650 mg PO Q6H PRN PRN Reason: Pain, Mild (Pain Scale 1-3) Aspirin (Aspirin Enteric Coated 81 Mg Tablet.) 81 mg PO DAILY [facility] Last Admin: 03/22/23 07:21 Dose: 81 mg Atorvastatin Calcium (Atorvastatin Calcium 10 Mg Tablet) 10 mg PO BEDTIME [facility] Last Admin: 03/21/23 20:58 Dose: 10 mg Benzonatate (Benzonatate 100 Mg Capsule) 100 mg PO TID PRN PRN Reason: cough Enoxaparin Sodium (Enoxaparin Sodium 40 Mg/0.4 Ml Syringe) 40 mg SUBCUT Q24H [facility] Last Admin: 03/21/23 17:55 Dose: 40 mg Furosemide (Furosemide 40 Mg/4 Ml Vial) 40 mg IVPUSH BID@0900,1800 [facility]; Protocol Last Admin: 03/22/23 07:21 Dose: 40 mg Glucose (Glucose Gel 15 Gm Gel..Gram.) 15 gm PO Q15M PRN; Protocol PRN Reason: per Hypoglycemia Standing Ord. Guaifenesin (Guaifenesin La 600 Mg Tab.Er.12h) 600 mg PO BID [facility] Last Admin: 03/22/23 07:22 Dose: 600 mg Hydrochlorothiazide (Hydrochlorothiazide 25 Mg Tablet) 25 mg PO DAILY [facility]; Protocol Last Admin: 03/22/23 07:21 Dose: 25 mg Dextrose (D10) 250 mls @ 750 mls/hr IV Q15M PRN; Protocol PRN Reason: per Hypoglycemia Standing Ord. Azithromycin 500 mg/ Sodium (Chloride) 250 mls @ 125 mls/hr IV Q24H [facility] Ceftriaxone Sodium 1 gm/ (Sodium Chloride) 50 mls @ 100 mls/hr IV Q24H [facility] Insulin Glargine (Insulin Glargine,Hum.Rec.Anlog 100 Unit/Ml 10 Ml Vial) 14 unit SUBCUT BEDTIME [facility] Last Admin: 03/21/23 20:58 Dose: 14 unit Insulin Human Lispro (Insulin Lispro 100 Unit/Ml 3 Ml Vial) 0 unit SUBCUT QIDACHS [facility]; Protocol Last Admin: 03/22/23 07:26 Dose: Not Given Losartan Potassium (Losartan Potassium 50 Mg Tablet) 100 mg PO DAILY [facility]; Protocol Last Admin: 03/22/23 07:22 Dose: 100 mg Ondansetron HCl (Ondansetron Hcl 4 Mg/2 Ml Vial) 4 mg IVPUSH Q8H PRN PRN Reason: Nausea and Vomiting Pharmacy Consult (Consult Rx Perform Med Rec) 1 each MISCELLANE ONCE PRN PRN Reason: Consult order Sodium Chloride (0.9 % Sodium Chloride Flush 3 Ml Syringe) 3 ml IVFLUSH QSHIFT [facility] Last Admin: 03/22/23 07:20 Dose: 3 ml Vitamin D (Cholecalciferol (Vitamin D3) 25 Mcg Tablet) 50 mcg PO DAILY [facility] Last Admin: 03/22/23 07:22 Dose: 50 mcg Home Medications Medication Instructions Recorded Confirmed Last Taken Type azithromycin 250 mg tablet 250 mg PO DAILY 03/21/23 03/21/23 03/21/23 History (Zithromax Z-Matthew) dulaglutide 3 mg/0.5 mL 3 mg subcut MO 03/21/23 03/21/23 03/19/23 History subcutaneous pen injector insulin detemir U-100 100 unit/mL 20 unit subcut BEDTIME 03/21/23 03/21/23 03/20/23 History (3 mL) subcutaneous pen (Levemir FlexTouch U-100 Insulin) Physical Exam Vital Signs: Vital Signs: Last Vital Signs Temp 97.6 F 03/22/23 07:36 Pulse 72 03/22/23 07:36 Resp 24 H 03/22/23 07:36 BP 142/68 H 03/22/23 07:36 Pulse Ox 98 03/22/23 07:36 O2 Del Method Nasal Cannula 03/22/23 07:36 O2 Flow Rate 2 03/22/23 07:36 BMI result Body Mass Index 35.5 Const: General: cooperative, alert, awake, in distress mild and respiratory and other ( Toxic appearing) Nutritional Appearance: obese Orientation/consciousness: patient oriented x3 HEENT: Head: Yes normocephalic and Yes atraumatic Neck: Neck: Yes trachea midline, Yes supple and Yes no JVD Chest: Chest palpation & inspection: normal inspection of the chest Resp: Effort & Inspection: decreased respiratory effort Auscultation: no crackles, no rales and wheezes lower bilaterally Cardio: Jugular venous distension: no JVD Palpation: normal PMI Rate: regular rate Rhythm: regular rhythm Heart sounds: S1 normal heart sound present, S2 normal heart sound present, no click, no gallops, no murmurs and no rubs GI: Auscultation: normal bowel sounds Skin: General skin exam: no rashes or lesions noted Neuro: General: patient oriented x3 and no focal motor deficits Extrem: General: Yes no clubbing, cyanosis or edema Objective Labs and Meds 03/21/23 14:00 03/22/23 05:31 Lab results: Laboratory Results - last 24 hr 03/21/23 03/21/23 03/21/23 14:00 14:00 14:00 WBC 5.4 RBC 3.87 L Hgb 11.0 L Hct 33.8 L MCV 87.3 MCH 28.4 MCHC 32.5 RDW 13.6 Plt Count 139 L D MPV 12.5 H Immature Gran % (Auto) 0.4 Neut % (Auto) 83.3 H Lymph % (Auto) 8.4 L Iron % (Auto) 7.3 Eos % (Auto) 0.0 Baso % (Auto) 0.6 Lymph # (Auto) 0.5 L Iron # (Auto) 0.4 Eos # (Auto) 0.0 Baso # (Auto) 0.0 Abs Immat Gran (auto) 0.02 Absolute Neuts (auto) 4.5 Absolute Nucleated RBC 0.000 Nucleated RBC % (auto) 0.0 PT 12.3 INR 1.1 APTT 28.3 Sodium 131 L Potassium 4.0 Chloride 98 Carbon Dioxide 25 Anion Gap 12 BUN 12 Creatinine 0.84 Estim Creat Clear Calc 66.6 Estimated GFR > 60 POC Glucose Random Glucose 212 H Lactic Acid Calcium 9.2 D Total Bilirubin 0.5 AST 21 ALT 14 Alkaline Phosphatase 51 Troponin I High Sens B-Natriuretic Peptide Total Protein 6.9 Albumin 4.0 Lipase 40 Urine Color Urine Appearance Urine pH Ur Specific [place] Urine Protein Urine Glucose (UA) Urine Ketones Urine Blood Urine Nitrite Ur Leukocyte Esterase Urine RBC Urine WBC Ur Squamous Epith Cells Urine Bacteria Hyaline Casts COVID-19 ([facility]) [employer] 03/21/23 03/21/23 03/21/23 14:00 14:00 14:00 WBC RBC Hgb Hct MCV MCH MCHC RDW Plt Count MPV Immature Gran % (Auto) Neut % (Auto) Lymph % (Auto) Iron % (Auto) Eos % (Auto) Baso % (Auto) Lymph # (Auto) Iron # (Auto) Eos # (Auto) Baso # (Auto) Abs Immat Gran (auto) Absolute Neuts (auto) Absolute Nucleated RBC Nucleated RBC % (auto) PT INR APTT Sodium Potassium Chloride Carbon Dioxide Anion Gap BUN Creatinine Estim Creat Clear Calc Estimated GFR POC Glucose Random Glucose Lactic Acid 1.4 Calcium Total Bilirubin AST ALT Alkaline Phosphatase Troponin I High Sens 57.1 H* B-Natriuretic Peptide 468 H Total Protein Albumin Lipase Urine Color Urine Appearance Urine pH Ur Specific [place] Urine Protein Urine Glucose (UA) Urine Ketones Urine Blood Urine Nitrite Ur Leukocyte Esterase Urine RBC Urine WBC Ur Squamous Epith Cells Urine Bacteria Hyaline Casts COVID-19 ([facility]) [employer] 03/21/23 03/21/23 03/21/23 14:00 17:26 17:26 WBC RBC Hgb Hct MCV MCH MCHC RDW Plt Count MPV Immature Gran % (Auto) Neut % (Auto) Lymph % (Auto) Iron % (Auto) Eos % (Auto) Baso % (Auto) Lymph # (Auto) Iron # (Auto) Eos # (Auto) Baso # (Auto) Abs Immat Gran (auto) Absolute Neuts (auto) Absolute Nucleated RBC Nucleated RBC % (auto) PT INR APTT Sodium Potassium Chloride Carbon Dioxide Anion Gap BUN Creatinine Estim Creat Clear Calc Estimated GFR POC Glucose Random Glucose Lactic Acid Calcium Total Bilirubin AST ALT Alkaline Phosphatase Troponin I High Sens 330.9 H* D B-Natriuretic Peptide Total Protein Albumin Lipase Urine Color Yellow Urine Appearance Clear Urine pH 5.5 Ur Specific [place] 1.010 Urine Protein 300 (3+) H Urine Glucose (UA) Negative Urine Ketones Negative Urine Blood Trace H Urine Nitrite Positive H Ur Leukocyte Esterase Negative Urine RBC 3-5 H Urine WBC 0-5 Ur Squamous Epith Cells 0-2 Urine Bacteria Trace Hyaline Casts 0-2 COVID-19 ([facility]) Negative COVID-19 Clin Com See Note 03/21/23 03/22/23 03/22/23 20:52 05:31 05:31 WBC RBC Hgb Hct MCV MCH MCHC RDW Plt Count MPV Immature Gran % (Auto) Neut % (Auto) Lymph % (Auto) Iron % (Auto) Eos % (Auto) Baso % (Auto) Lymph # (Auto) Iron # (Auto) Eos # (Auto) Baso # (Auto) Abs Immat Gran (auto) Absolute Neuts (auto) Absolute Nucleated RBC Nucleated RBC % (auto) PT INR APTT Sodium 133 L Potassium 3.9 Chloride 96 Carbon Dioxide 26 Anion Gap 15 BUN 17 H Creatinine 0.83 Estim Creat Clear Calc 67.3 Estimated GFR > 60 POC Glucose 168 H Random Glucose 150 H Lactic Acid Calcium 9.2 Total Bilirubin 0.4 AST 32 H ALT 17 Alkaline Phosphatase 46 Troponin I High Sens B-Natriuretic Peptide 571 H Total Protein 6.5 Albumin 3.8 Lipase Urine Color Urine Appearance Urine pH Ur Specific [place] Urine Protein Urine Glucose (UA) Urine Ketones Urine Blood Urine Nitrite Ur Leukocyte Esterase Urine RBC Urine WBC Ur Squamous Epith Cells Urine Bacteria Hyaline Casts COVID-19 ([facility]) COVID-19 Clin Com 03/22/23 07:25 WBC RBC Hgb Hct MCV MCH MCHC RDW Plt Count MPV Immature Gran % (Auto) Neut % (Auto) Lymph % (Auto) Iron % (Auto) Eos % (Auto) Baso % (Auto) Lymph # (Auto) Iron # (Auto) Eos # (Auto) Baso # (Auto) Abs Immat Gran (auto) Absolute Neuts (auto) Absolute Nucleated RBC Nucleated RBC % (auto) PT INR APTT Sodium Potassium Chloride Carbon Dioxide Anion Gap BUN Creatinine Estim Creat Clear Calc Estimated GFR POC Glucose 145 H Random Glucose Lactic Acid Calcium Total Bilirubin AST ALT Alkaline Phosphatase Troponin I High Sens B-Natriuretic Peptide Total Protein Albumin Lipase Urine Color Urine Appearance Urine pH Ur Specific [place] Urine Protein Urine Glucose (UA) Urine Ketones Urine Blood Urine Nitrite Ur Leukocyte Esterase Urine RBC Urine WBC Ur Squamous Epith Cells Urine Bacteria Hyaline Casts COVID-19 ([facility]) COVID-19 Clin Com Imaging Radiologist's impression: Impressions Chest X-Ray 03/21/23 13:44 IMPRESSION: Mild asymmetric patchy opacities in the right mid and lower lung lara are nonspecific, but suggest an infectious/inflammatory process. Chest CT 03/21/23 17:53 IMPRESSION: * Multifocal centrilobular solid and groundglass pulmonary opacities, seen to a greater degree in the bilateral lower lobes and to a lesser degree in the upper lobes likely reflect multifocal aspiration/infection. * Large largest lung nodule measures 1.1 cm. According to the UPDATED 2017 Fleischner Society recommendations, the advised followup imaging for a single solid nodule measuring 8 mm or greater is: Consider CT, PET/CT, or tissue sampling at 3 months. * Main pulmonary artery is enlarged measuring 3.9 cm, likely reflecting underlying pulmonary arterial hypertension. Assessment and Plan (1) Elevated troponin: Status: Acute elevated troponin and BNP in this elderly woman presenting with multifocal pneumonia, could be multifactorial. Could be related to myocarditis with possible viral multifocal pneumonia, secondary non-STEMI related to acute systemic illness given multiple risk factors for coronary artery disease or possibility of stress-induced cardiomyopathy. However she does not require any IV heparin at this point time as this does appear to be a primary acute coronary syndrome event. She also does appear to be in overt heart failure would avoid significant diuresis unless respiratory status acutely decompensated. Would obtain an echocardiogram to assess for LV systolic and diastolic function to evaluate for stress-induced cardiomyopathy. Continue strict intake and output chart and monitor closely for heart failure. Continue supportive care. Consider ID and pulmonary consultation. Continue to trend troponins. I would give her aspirin and beta-blockers then are contraindications. Also would give her high-intensity statin therapy for now given that she has high likelihood of underlying coronary artery disease. Will continue to follow with you. Time Spent With Patient Time: Total time managing care of this patient today ____ minutes. Procedures Date of Service Date of Service: 03/22/23
[2023-03-22 11:35] LABS: Glucose, Whole Blood 142 mg/dL (60-115)
[2023-03-22 11:52] LABS: Troponin-I High Sensitivity 401.3 ng/L (<3.5-17.0)
[2023-03-22 12:20] VITALS: BP 119/58; PULSE 65; RESP 24; TEMP 36.2; O2SAT 98
[2023-03-22] MEDS: cefTRIAXone sodium 1 GM in 0.9 % Sodium Chloride 50 ML IV (13:04)
--- NOTE | 2023-03-22 13:13 | MHC.SL.SWA ---
Speech Pathologist Impression: Risk of Aspiration Due to: History of Pneumonia Dysphasia Diet Status: Liquid Consistency and Strategies for Safe Swallow: Liquid Intake Recommendation: Thin Liquid Intake Strategies: Unrestricted Solid Food Consistency: Dietary Recommendations: Regular Additional Modifications to Solid Foods: Patient should wear dentures for meals, and should be provided with regular oral care for dentures. Son inquired if food from home could be brought, which is recommended to be allowed. Oral Medication Intake: Whole with Liquid Please contact the pharmacy regarding appropriate crushable or liquid drug formulations that are available whenever modified delivery is recommended. Compensatory Strategies and Precautions to be Taken for Safe Swallow: Sitting Upright (90 deg) Small Bites and Sips Alternate Liquids/Solids Supervision While Eating and Drinking for Safe Swallow: None Needed Foods to Avoid: Difficult to chew solids (due to dentures) Swallowing Recommended Treatments: Recommendation for Speech: NA:Typical Evaluation Comment: Patient presents today with all aspects of oral motor function and all aspects of swallow WFL. Patient wears full dentures, and should avoid harder to chew solids as a result, and be provided with regular cleaning and oral care for dentures. Recommend patient continue on current diet of REGULAR with THIN liquids, Pills whole with liquids. As all aspects of swallow are WFL, recommend DC speech at this time. If additional concerns arise, please re-contact. Recommendations communicated by secure text to BENNIE BOWSER. Frequency/Duration: Date Range for Service Req: Timeline to reassess: [employer] Clinican/Clinical Fellow: No Supervisory Statement: I have reviewed and agree with the student/clinical fellow's documentation: N/A Speech Language Pathologist: Kami Lyman M.A., CCC-ETYMOLOGY TEACHER
--- NOTE | 2023-03-22 13:45 | MHC.CM.PN ---
PATIENT GIVES PERMISSION FOR THIS BOARDINGHOUSE KEEPER TO SPEAK WITH [id number], KELLEY, IN ROOM PATIENT IS FROM HOME ALONE USES A CANE AND A WALKER PATIENT HAS DAILY INNERSOLE MAKER FOR 4 HOURS EACH NO VNA SERVICES BUT IS OPEN TO VNA IF RECOMMENDED. APPROXIMATELY 2 WEEKS AGO, PATIENT HAD RN VISIT THROUGH HER MANAGED INSURANCE PLAN. FAMILY TO TRANSPORT HOME IF THIS IS THE DC PLAN. PATIENT DOES NOT WANT ANY REHAB REFERRALS. PATIENT AWARE OF IMPORTANCE OF HCP DOCUMENTATION AND THAT CM CAN ASSIST WITH COMPLETION IF SHE CHOOSES IMM 5/4 IN CHART
[2023-03-22 15:13] VITALS: BP 129/84; PULSE 95; RESP 20; TEMP 36.9; O2SAT 100
[2023-03-22] MEDS: Azithromycin 500 MG in 0.9 % Sodium Chloride 250 ML 125 MG IV (15:39)
--- NOTE | 2023-03-22 15:57 | P.PNIM_ITS ---
Subjective Subjective Date of Service: 03/22/23 Interval History: Seen and examined this morning Follow-up for pneumonia History obtained with the assistance of a printed circuit boards plasma etcher. Patient denies any chest pain at this time. Feels chest congestion but unable to bring up any phlegm. Denies fever, chills Review of Systems Review of Systems: Yes all other systems are reviewed and are negative Constitutional Constitutional: Denies chills and Denies fever(s) Cardiovascular Cardiovascular: Denies chest pain, Denies palpitations and Reports dyspnea Respiratory Respiratory: Reports cough and Reports dyspnea Gastrointestinal Gastrointestinal: Denies abdominal pain, Denies nausea and Denies vomiting Endocrine Endocrine: Denies palpitations Physical Exam Vital Signs: Vital Signs: Last Vital Signs Temp 98.4 F 03/22/23 15:13 Pulse 95 03/22/23 15:13 Resp 20 03/22/23 15:13 BP 129/84 03/22/23 15:13 Pulse Ox 100 03/22/23 15:13 O2 Del Method Nasal Cannula 03/22/23 15:13 O2 Flow Rate 2 03/22/23 15:13 BMI result Body Mass Index 35.5 Const: General: comfortable, no acute distress, alert and awake Nutritional Appearance: overweight Orientation/consciousness: patient oriented x3 Resp: Effort & Inspection: normal respiratory effort, able to speak in complete sentences, no respiratory distress and no use of accessory muscles Cardio: Rate: regular rate Heart sounds: S1 normal heart sound present and S2 normal heart sound present GI: Inspection: No distended Palpation (GI): Soft to palpation and nontender Neuro: General: patient oriented x3 and CN's II-XI intact bilaterally Extrem: General: Yes no pedal edema Objective Data Active Medications Acetaminophen (Acetaminophen 325 Mg Tablet) 650 mg PO Q6H PRN PRN Reason: Pain, Mild (Pain Scale 1-3) Aspirin (Aspirin Enteric Coated 81 Mg Tablet.) 81 mg PO DAILY [facility] Last Admin: 03/22/23 07:21 Dose: 81 mg Documented By: YAKOV Atorvastatin Calcium (Atorvastatin Calcium 40 Mg Tablet) 40 mg PO BEDTIME [facility] Benzonatate (Benzonatate 100 Mg Capsule) 100 mg PO TID PRN PRN Reason: cough Enoxaparin Sodium (Enoxaparin Sodium 40 Mg/0.4 Ml Syringe) 40 mg SUBCUT Q24H [facility] Last Admin: 03/21/23 17:55 Dose: 40 mg Documented By: SERGIO Glucose (Glucose Gel 15 Gm Gel..Gram.) 15 gm PO Q15M PRN; Protocol PRN Reason: per Hypoglycemia Standing Ord. Guaifenesin (Guaifenesin La 600 Mg Tab.Er.12h) 600 mg PO BID [facility] Last Admin: 03/22/23 07:22 Dose: 600 mg Documented By: YAKOV Hydrochlorothiazide (Hydrochlorothiazide 25 Mg Tablet) 25 mg PO DAILY [facility]; Protocol Last Admin: 03/22/23 07:21 Dose: 25 mg Documented By: YAKOV Dextrose (D10) 250 mls @ 750 mls/hr IV Q15M PRN; Protocol PRN Reason: per Hypoglycemia Standing Ord. Azithromycin 500 mg/ Sodium (Chloride) 250 mls @ 125 mls/hr IV Q24H [facility] Last Admin: 03/22/23 15:39 Dose: 125 mls/hr Documented By: YAKOV Ceftriaxone Sodium 1 gm/ (Sodium Chloride) 50 mls @ 100 mls/hr IV Q24H [facility] Last Infusion: 03/22/23 14:21 Dose: 0 mls/hr Documented By: YAKOV Insulin Glargine (Insulin Glargine,Hum.Rec.Anlog 100 Unit/Ml 10 Ml Vial) 14 unit SUBCUT BEDTIME [facility] Last Admin: 03/21/23 20:58 Dose: 14 unit Documented By: ALLISON Insulin Human Lispro (Insulin Lispro 100 Unit/Ml 3 Ml Vial) 0 unit SUBCUT QIDACHS [facility]; Protocol Last Admin: 03/22/23 12:09 Dose: Not Given Documented By: YAKOV Non-Admin Reason: No Insulin Coverage Losartan Potassium (Losartan Potassium 50 Mg Tablet) 100 mg PO DAILY [facility]; Protocol Last Admin: 03/22/23 07:22 Dose: 100 mg Documented By: YAKOV Metoprolol Tartrate (Metoprolol Tartrate 25 Mg Tablet) 25 mg PO BID [facility]; Pro tocol Ondansetron HCl (Ondansetron Hcl 4 Mg/2 Ml Vial) 4 mg IVPUSH Q8H PRN PRN Reason: Nausea and Vomiting Pharmacy Consult (Consult Rx Perform Med Rec) 1 each MISCELLANE ONCE PRN PRN Reason: Consult order Sodium Chloride (0.9 % Sodium Chloride Flush 3 Ml Syringe) 3 ml IVFLUSH QSHIFT [facility] Last Admin: 03/22/23 15:54 Dose: Not Given Documented By: YAKOV Non-Admin Reason: IV Running Vitamin D (Cholecalciferol (Vitamin D3) 25 Mcg Tablet) 50 mcg PO DAILY [facility] Last Admin: 03/22/23 07:22 Dose: 50 mcg Documented By: YAKOV Labs 03/21/23 14:00 03/22/23 05:31 Labs: Laboratory Results - last 24 hr 03/21/23 03/21/23 03/21/23 17:26 17:26 20:52 Anion Gap Estim Creat Clear Calc Estimated GFR POC Glucose 168 H Random Glucose Calcium Total Bilirubin AST ALT Alkaline Phosphatase Troponin I High Sens 330.9 H* D B-Natriuretic Peptide Total Protein Albumin Urine Color Yellow Urine Appearance Clear Urine pH 5.5 Ur Specific [place] 1.010 Urine Protein 300 (3+) H Urine Glucose (UA) Negative Urine Ketones Negative Urine Blood Trace H Urine Nitrite Positive H Ur Leukocyte Esterase Negative Urine RBC 3-5 H Urine WBC 0-5 Ur Squamous Epith Cells 0-2 Urine Bacteria Trace Hyaline Casts 0-2 03/22/23 03/22/23 03/22/23 05:31 05:31 07:25 Anion Gap 15 Estim Creat Clear Calc 67.3 Estimated GFR > 60 POC Glucose 145 H Random Glucose 150 H Calcium 9.2 Total Bilirubin 0.4 AST 32 H ALT 17 Alkaline Phosphatase 46 Troponin I High Sens B-Natriuretic Peptide 571 H Total Protein 6.5 Albumin 3.8 Urine Color Urine Appearance Urine pH Ur Specific [place] Urine Protein Urine Glucose (UA) Urine Ketones Urine Blood Urine Nitrite Ur Leukocyte Esterase Urine RBC Urine WBC Ur Squamous Epith Cells Urine Bacteria Hyaline Casts 03/22/23 03/22/23 10:34 11:29 Anion Gap Estim Creat Clear Calc Estimated GFR POC Glucose 142 H Random Glucose Calcium Total Bilirubin AST ALT Alkaline Phosphatase Troponin I High Sens 401.3 H* B-Natriuretic Peptide Total Protein Albumin Urine Color Urine Appearance Urine pH Ur Specific [place] Urine Protein Urine Glucose (UA) Urine Ketones Urine Blood Urine Nitrite Ur Leukocyte Esterase Urine RBC Urine WBC Ur Squamous Epith Cells Urine Bacteria Hyaline Casts Microbiology Microbiology Results: Microbiology 03/21/23 17:41 Urine Culture - Preliminary Urine clean catch - Urine hunt top Culture too young to evaluate. Assessment and Plan (1) Pneumonia: Status: Acute (2) Elevated troponin: Status: Acute Plan This is a 77 year old [place] speaking female here with pneumonia and elevated cardiac enzmes Sepsis secondary to CAP Tachycardia, tachypnea. LA wnl chest CT showing multifocal infection/aspiration seen by speech, no dysphagia/signs of aspiration Continue Rocephin and azithromycin, started 5/3 continue supplemental oxygen as needed robitussin for cough blood cultures pending elevated troponin no chest pain Seen by Cardiology - possibly secondary to demand from PNA vs versus myocarditis versus stress-induced cardiomyopathy No indication for anticoagulation at this time Echocardiogram pending Recommend beta-ericka, continue home asa, increase dose of statin trend trops Acute CHF, unspecified no history of CHF seen by Cardiology, does not feel patient is in overt heart failure Will DC IV Lasix Follow echocardiogram pulmonary nodule 1.1cm lung nodule outpatient follow up Hypertension continue HCTZ, losartan lopressor added as above HLD statin Diabetes mellitus 2 continue lantus trulicity on hold SSI, ada diet Obesity. BMI 35.5 Discussed importance of weight management as this may be contributing to worsening of other comorbidities DVT prophylaxis with Lovenox Attending Dr. Pfeiffer Full code Patient requires ongoing inpatient hospitalization for management of pneumonia, further workup for elevated cardiac enzymes Time Spent With Patient Time: Total time managing care of this patient today ____ minutes. Quality Stroke Does the patient have a stroke diagnosis?: No VTE Prior VTE?: No VTE Risk Level:: Medical - moderate - high VTE Device Contraindication: Treatment Not Indicated VTE Drug Contraindication: N/A - Med Ordered
[2023-03-22 16:09] LABS: Glucose, Whole Blood 140 mg/dL (60-115)
--- NOTE | 2023-03-22 16:16 | PC.NURSE ---
SUZIE Butler notified, order for EKG. Patient not symptomatic
[2023-03-22 16:40] LABS: Troponin-I High Sensitivity 244.6 ng/L (<3.5-17.0)
[2023-03-22] MEDS: Enoxaparin Sodium 40 MG/0.4 ML SYRINGE SUBCUT (16:51)
[2023-03-22] MEDS: Enoxaparin Sodium 60 MG/0.6 ML SYRINGE SUBCUT (17:44)
[2023-03-22 18:13] LABS: Prothrombin Time 11.7 SEC (10.0-13.1)
--- NOTE | 2023-03-22 18:42 | PC.NURSE ---
Educated patient with tombstone erector about heart rhythm changes, new medications, she states understanding.
[2023-03-22 20:00] VITALS: BP 125/57; PULSE 97; RESP 18; TEMP 36.8; O2SAT 98
[2023-03-22 20:47] LABS: Glucose, Whole Blood 131 mg/dL (60-115)
[2023-03-22] MEDS: Atorvastatin Calcium 40 MG TABLET PO (21:22)
[2023-03-22] MEDS: Insulin Glargine,Hum.rec.anlog 100 UNIT/ML 10 ML VIAL 14 UNIT SUBCUT (21:22)
[2023-03-22] MEDS: Metoprolol Tartrate 25 MG TABLET PO (21:22)
[2023-03-23] VITALS (9 sets, daily range): BP systolic 110–168; BP diastolic 55–72; PULSE 54–97; RESP 16–22; TEMP 36.6–36.9; O2SAT 95–99; BMI 34.1
--- NOTE | 2023-03-23 | ECG_ITS ---
Test Reason : blanca Blood Pressure : / mmHG Vent. Rate : 071 BPM Atrial Rate : 061 BPM P-R Int : 182 ms QRS Dur : 150 ms QT Int : 516 ms P-R-T Axes : 035 -52 270 degrees QTc Int : 560 ms Sinus rhythm with frequent Premature ventricular complexes Right bundle branch block Left anterior fascicular block Bifascicular block Minimal voltage criteria for LVH, may be normal variant ( R in aVL ) T wave abnormality, consider inferolateral ischemia Abnormal ECG When compared with ECG of 22-MAR-2023 17:13, Sinus rhythm has replaced Atrial fibrillation Referred By: Jayson Reyes Electronically Signed By:GIANFRANCO RINCON MD
[2023-03-23] MEDS: ondansetron HCL 4 MG/2 ML VIAL IVPUSH (01:02)
[2023-03-23] MEDS: Albuterol/Iprat 2.5/0.5MG 3 ML AMPUL.NEB INHALE ×2 (01:32→08:58)
[2023-03-23 01:59] LABS: B Type Natriuretic Peptide 237 pg/mL (<100)
[2023-03-23 02:20] LABS: Troponin-I High Sensitivity 167.4 ng/L (<3.5-17.0)
[2023-03-23] MEDS: Prochlorperazine Edisylate 10 MG/2 ML VIAL 5 MG IVPUSH (04:59)
[2023-03-23] MEDS: Enoxaparin Sodium 100 MG/ML SYRINGE SUBCUT ×2 (05:33→17:06)
--- NOTE | 2023-03-23 06:23 | PC.NURSE ---
pt c/o sob, and nausea, O2 Sat 96% with NC 2L, SB 33, dr lopez, ordered bnp, trop. and ekg. given albuterol treatment. in ECG HR 71. will monitor closely.
--- NOTE | 2023-03-23 06:27 | PC.NURSE ---
pt had actively vomiting twice, notified ordered compazine, give by this nurse. symptoms improved.
[2023-03-23 07:09] LABS: Hematocrit 33.3 % (37.0-47.0); Hemoglobin 10.6 g/dl (12.0-16.0); Mean Corpuscular HGB Conc 31.8 g/dl (31.0-35.0); Mean Corpuscular Hemoglobin 27.7 pg (27.0-33.0); Mean Corpuscular Volume 87.2 fL (80.0-98.0); Mean Platelet Volume 12.7 fL (9.4-12.3); PLT CLUMP 1; Red Blood Count 3.82 X10*6/uL (4.20-5.50); Red Cell Distribution Width 13.6 % (11.0-16.0)
[2023-03-23 07:16] LABS: Glucose, Whole Blood 155 mg/dL (60-115)
[2023-03-23 07:17] LABS: Platelet Count 140 X10*3/uL (160-400); White Blood Count 5.1 X10*3/uL (4.8-10.8)
[2023-03-23 07:23] LABS: Anion Gap 15 (12-20); Blood Urea Nitrogen 25 mg/dL (9-16); Calcium 9.2 mg/dL (8.4-10.2); Carbon Dioxide 25 mmol/L (22-29); Chloride 95 mmol/L (96-108); Creatinine Clr Calc Pharmacy 64.4; Estimated Glomerular Filt Rate > 60; Glucose Random 151 mg/dL (60-115); Sodium 131 mmol/L (135-145)
[2023-03-23] MEDS: Furosemide 20 MG/2 ML VIAL IVPUSH ×2 (08:28→13:28)
[2023-03-23] MEDS: 0.9 % Sodium Chloride Flush 3 ML SYRINGE IVFLUSH ×3 (08:29→21:37)
[2023-03-23] MEDS: guaiFENesin LA 600 MG TAB.ER.12H PO ×2 (08:30→21:30)
[2023-03-23] MEDS: Cholecalciferol (Vitamin D3) 25 MCG TABLET 50 MCG PO (08:30)
[2023-03-23] MEDS: Aspirin Enteric Coated 81 MG TABLET.DR PO (08:30)
[2023-03-23] MEDS: Insulin Lispro 100 UNIT/ML 3 ML VIAL SUBCUT ×2 (08:31→13:27)
[2023-03-23] MEDS: Losartan Potassium 50 MG TABLET 100 MG PO (08:32)
[2023-03-23] MEDS: hydroCHLOROthiazide 25 MG TABLET PO (08:32)
[2023-03-23] MEDS: Metoprolol Tartrate 25 MG TABLET PO ×2 (08:32→21:30)
--- NOTE | 2023-03-23 09:58 | P.PNCA_ITS ---
Subjective Subjective Date of Service: 03/23/23 Principal diagnosis: Elevated cardiac biomarkers, CHF Interval history: underwent echocardiogram yesterday which showed low normal LVEF of 50-55%. Had episode of atrial fibrillation converted back to sinus rhythm. Still continues to be short of breath but says that she is better. Denies any chest pain. EKG shows deep T-wave inversion inferolateral anterolateral leads with PVCs. She is currently still bronchospastic but has rales by physical exam. Review of Systems Constitutional: Reports weakness Cardiovascular: Denies chest pain, Denies leg edema, Denies lightheadedness, Denies Loss of Consciousness, Denies palpitations and Reports dyspnea Respiratory: Reports dyspnea Gastrointestinal: Reports no additional gastrointestinal complaints Genitourinary: Reports no additional female genitourinary complaints Musculoskeletal: Reports no additional musculoskeletal complaints Skin/Breast: Reports system reviewed and no additional complaints, except as docu Reports system reviewed and no additional complaints, except as documented and Reports weakness Endocrine: Denies palpitations Physical Exam Vital Signs: Last Vital Signs Temp 98.5 F 03/23/23 07:02 Pulse 68 03/23/23 08:59 Resp 18 03/23/23 08:59 BP 168/72 H 03/23/23 07:02 Pulse Ox 99 03/23/23 07:02 O2 Del Method Nasal Cannula 03/23/23 07:02 O2 Flow Rate 2.0 03/23/23 07:02 BMI result Body Mass Index 34.1 Const General: cooperative, alert, awake and in distress mild and respiratory Nutritional Appearance: obese Orientation/consciousness: patient oriented x3 Neck Neck: Yes trachea midline, Yes supple and Yes no JVD Resp Effort & Inspection: normal respiratory effort Auscultation: crackles bilateral 1/[address] way up and wheezes Cardio Jugular venous distension: no JVD Rhythm: abnormal rhythm with ectopic beats Heart sounds: S1 normal heart sound present, S2 normal heart sound present, no click, no gallops and no murmurs GI Auscultation: normal bowel sounds Skin General skin exam: no rashes or lesions noted and ecchymosis Neuro General: patient oriented x3 and no focal motor deficits Extrem General: Yes no clubbing, cyanosis or edema Objective Labs and Meds 03/23/23 05:36 03/23/23 05:36 Lab results: Laboratory Results - last 24 hr 03/22/23 03/22/23 03/22/23 10:34 11:29 16:05 WBC RBC Hgb Hct MCV MCH MCHC RDW Plt Count MPV Absolute Nucleated RBC Nucleated RBC % (auto) PT INR APTT Sodium Potassium Chloride Carbon Dioxide Anion Gap BUN Creatinine Estim Creat Clear Calc Estimated GFR POC Glucose 142 H 140 H Random Glucose Calcium Magnesium Troponin I High Sens 401.3 H* B-Natriuretic Peptide 03/22/23 03/22/23 03/22/23 16:09 17:47 20:28 WBC RBC Hgb Hct MCV MCH MCHC RDW Plt Count MPV Absolute Nucleated RBC Nucleated RBC % (auto) PT 11.7 INR 1.0 APTT 29.0 Sodium Potassium Chloride Carbon Dioxide Anion Gap BUN Creatinine Estim Creat Clear Calc Estimated GFR POC Glucose 131 H Random Glucose Calcium Magnesium Troponin I High Sens 244.6 H* B-Natriuretic Peptide 03/23/23 03/23/23 03/23/23 01:17 01:17 05:36 WBC 5.1 RBC 3.82 L Hgb 10.6 L Hct 33.3 L MCV 87.2 MCH 27.7 MCHC 31.8 RDW 13.6 Plt Count 140 L MPV 12.7 H Absolute Nucleated RBC 0.000 Nucleated RBC % (auto) 0.0 PT INR APTT Sodium Potassium Chloride Carbon Dioxide Anion Gap BUN Creatinine Estim Creat Clear Calc Estimated GFR POC Glucose Random Glucose Calcium Magnesium Troponin I High Sens 167.4 H* B-Natriuretic Peptide 237 H 03/23/23 03/23/23 05:36 07:04 WBC RBC Hgb Hct MCV MCH MCHC RDW Plt Count MPV Absolute Nucleated RBC Nucleated RBC % (auto) PT INR APTT Sodium 131 L Potassium 4.0 Chloride 95 L Carbon Dioxide 25 Anion Gap 15 BUN 25 H Creatinine 0.85 Estim Creat Clear Calc 64.4 Estimated GFR > 60 POC Glucose 155 H Random Glucose 151 H Calcium 9.2 Magnesium 2.0 Troponin I High Sens B-Natriuretic Peptide Progress Note: A&P Assessment and plan (1) Decompensated heart failure: Status: Acute Assessment and Plan: patient today appears to be in decompensated congestive heart failure. Most likely related to acute systemic illness with pneumonia and myocardial stress. I would diurese her with Lasix 40 mg and see how she responds and then give another Lasix later in the day. Continue monitor strict intake and output chart. Continue monitor renal function as well as electrolytes. Would add nitro paste to her regimen for preload and afterload reduction as well as for as a coronary vaso dilator. Continue treat myocardial ischemia with metoprolol. Continue maintain rhythm control for atrial fibrillation. Continue treat her bronchospastic airway disease aggressively. Discussed with family about her overall tenuous clinical condition and they understand. Continue oxygen therapy and supportive care. (2) Elevated troponin: Status: Acute Assessment and Plan: Myocardial injury appears to be secondary NSTEMI and suggestive underlying coronary artery disease. She does not have any major significant regional wall motion abnormality. Currently on Lovenox therapy but more for atrial fibrillation at this point time. Continue statins and aspirin. Continue beta- ericka therapy as long as she tolerates it. Will require ischemic workup once her pulmonary status improves (3) Paroxysmal atrial fibrillation: Status: Acute Assessment and Plan: paroxysmal atrial fibrillation due to acute medical illness. Has subsided. However she has recurrent atrial fibrillation would consider rhythm control approach. For now will continue metoprolol therapy. Hopefully switch to Xopenex therapy for bronchodilators. Continue Lovenox therapy for now. Will continue to follow with her. Time Spent With Patient Time: Total time managing care of this patient today ____ minutes. Progress Note: Quality Stroke Does the patient have a stroke diagnosis?: No Procedures Date of Service Date of Service: 03/23/23
[2023-03-23 11:16] LABS: Glucose, Whole Blood 152 mg/dL (60-115)
--- NOTE | 2023-03-23 12:35 | P.PNIM_ITS ---
Subjective Subjective Date of Service: 03/23/23 Interval History: Seen and examined this morning History obtained with the assistance of a asic verification engineer Follow-up for pneumonia, CHF, atrial fibrillation The patient reported episode of shortness of breath overnight This morning patient reports breathing has improved somewhat. She denies any dizziness, palpitations, chest pain Review of Systems Review of Systems: Yes all other systems are reviewed and are negative Constitutional Constitutional: Denies chills and Denies fever(s) Cardiovascular Cardiovascular: Denies chest pain, Denies palpitations and Reports dyspnea Respiratory Respiratory: Reports dyspnea Gastrointestinal Gastrointestinal: Denies abdominal pain Endocrine Endocrine: Denies palpitations Physical Exam Vital Signs: Vital Signs: Last Vital Signs Temp 98.5 F 03/23/23 07:02 Pulse 68 03/23/23 08:59 Resp 18 03/23/23 08:59 BP 168/72 H 03/23/23 07:02 Pulse Ox 99 03/23/23 07:02 O2 Del Method Nasal Cannula 03/23/23 07:02 O2 Flow Rate 2.0 03/23/23 07:02 BMI result Body Mass Index 34.1 Const: General: comfortable, no acute distress, alert and awake Nutritional Appearance: overweight Orientation/consciousness: patient oriented x3 Resp: Effort & Inspection: normal respiratory effort, able to speak in complete sentences, no respiratory distress and no use of accessory muscles Auscultation: crackles and wheezes Cardio: Rate: regular rate Heart sounds: S1 normal heart sound present and S2 normal heart sound present GI: Inspection: No distended Palpation (GI): Soft to palpation and nontender Neuro: General: patient oriented x3 and CN's II-XI intact bilaterally Extrem: General: Yes no pedal edema Objective Data Active Medications Acetaminophen (Acetaminophen 325 Mg Tablet) 650 mg PO Q6H PRN PRN Reason: Pain, Mild (Pain Scale 1-3) Aspirin (Aspirin Enteric Coated 81 Mg Tablet.) 81 mg PO DAILY [facility] Last Admin: 03/23/23 08:30 Dose: 81 mg Documented By: CHRISTIANE Atorvastatin Calcium (Atorvastatin Calcium 40 Mg Tablet) 40 mg PO BEDTIME [facility] Last Admin: 03/22/23 21:22 Dose: 40 mg Documented By: JOSE Benzonatate (Benzonatate 100 Mg Capsule) 100 mg PO TID PRN PRN Reason: cough Enoxaparin Sodium (Enoxaparin Sodium 100 Mg/Ml Syringe) 100 mg 1 mg/kg (100 mg) SUBCUT Q12H [facility] Last Admin: 03/23/23 05:33 Dose: 100 mg Documented By: JOSE Furosemide (Furosemide 40 Mg/4 Ml Vial) 40 mg IVPUSH BID@0900,1800 [facility]; Protocol Glucose (Glucose Gel 15 Gm Gel..Gram.) 15 gm PO Q15M PRN; Protocol PRN Reason: per Hypoglycemia Standing Ord. Guaifenesin (Guaifenesin La 600 Mg Tab.Er.12h) 600 mg PO BID [facility] Last Admin: 03/23/23 08:30 Dose: 600 mg Documented By: CHRISTIANE Hydrochlorothiazide (Hydrochlorothiazide 25 Mg Tablet) 25 mg PO DAILY [facility]; Prot ocol Last Admin: 03/23/23 08:32 Dose: 25 mg Documented By: CHRISTIANE Dextrose (D10) 250 mls @ 750 mls/hr IV Q15M PRN; Protocol PRN Reason: per Hypoglycemia Standing Ord. Azithromycin 500 mg/ Sodium (Chloride) 250 mls @ 125 mls/hr IV Q24H [facility] Last Infusion: 03/22/23 18:32 Dose: 0 mls/hr Documented By: YAKOV Ceftriaxone Sodium 1 gm/ (Sodium Chloride) 50 mls @ 100 mls/hr IV Q24H [facility] Last Infusion: 03/22/23 14:21 Dose: 0 mls/hr Documented By: YAKOV Insulin Glargine (Insulin Glargine,Hum.Rec.Anlog 100 Unit/Ml 10 Ml Vial) 14 unit SUBCUT BEDTIME [facility] Last Admin: 03/22/23 21:22 Dose: 14 unit Documented By: JOSE Insulin Human Lispro (Insulin Lispro 100 Unit/Ml 3 Ml Vial) 0 unit SUBCUT QIDACHS [facility]; Protocol Last Admin: 03/23/23 08:31 Dose: 2 unit Documented By: CHRISTIANE Losartan Potassium (Losartan Potassium 50 Mg Tablet) 100 mg PO DAILY [facility]; Protocol Last Admin: 03/23/23 08:32 Dose: 100 mg Documented By: CHRISTIANE Metoprolol Tartrate (Metoprolol Tartrate 25 Mg Tablet) 25 mg PO BID [facility]; Protocol Last Admin: 03/23/23 08:32 Dose: 25 mg Documented By: CHRISTIANE Nitroglycerin (Nitroglycerin 2 % Oint 1 Gm Packet) 0.5 inch TRANSDERMA RQ6H WHILE AWAKE [facility] Ondansetron HCl (Ondansetron Hcl 4 Mg/2 Ml Vial) 4 mg IVPUSH Q8H PRN PRN Reason: Nausea and Vomiting Last Admin: 03/23/23 01:02 Dose: 4 mg Documented By: JOSE Pharmacy Consult (Consult Rx Perform Med Rec) 1 each MISCELLANE ONCE PRN PRN Reason: Consult order Sodium Chloride (0.9 % Sodium Chloride Flush 3 Ml Syringe) 3 ml IVFLUSH QSHIFT [facility] Last Admin: 03/23/23 08:29 Dose: 3 ml Documented By: CHRISTIANE Vitamin D (Cholecalciferol (Vitamin D3) 25 Mcg Tablet) 50 mcg PO DAILY [facility] Last Admin: 03/23/23 08:30 Dose: 50 mcg Documented By: CHRISTIANE Labs 03/23/23 05:36 03/23/23 05:36 Labs: Laboratory Results - last 24 hr 03/22/23 03/22/23 03/22/23 16:05 16:09 17:47 MCV MCH MCHC RDW Plt Count MPV Absolute Nucleated RBC Nucleated RBC % (auto) PT 11.7 INR 1.0 APTT 29.0 Anion Gap Estim Creat Clear Calc Estimated GFR POC Glucose 140 H Random Glucose Calcium Magnesium Troponin I High Sens 244.6 H* B-Natriuretic Peptide 03/22/23 03/23/23 03/23/23 20:28 01:17 01:17 MCV MCH MCHC RDW Plt Count MPV Absolute Nucleated RBC Nucleated RBC % (auto) PT INR APTT Anion Gap Estim Creat Clear Calc Estimated GFR POC Glucose 131 H Random Glucose Calcium Magnesium Troponin I High Sens 167.4 H* B-Natriuretic Peptide 237 H 03/23/23 03/23/23 03/23/23 05:36 05:36 07:04 MCV 87.2 MCH 27.7 MCHC 31.8 RDW 13.6 Plt Count 140 L MPV 12.7 H Absolute Nucleated RBC 0.000 Nucleated RBC % (auto) 0.0 PT INR APTT Anion Gap 15 Estim Creat Clear Calc 64.4 Estimated GFR > 60 POC Glucose 155 H Random Glucose 151 H Calcium 9.2 Magnesium 2.0 Troponin I High Sens B-Natriuretic Peptide 03/23/23 11:11 MCV MCH MCHC RDW Plt Count MPV Absolute Nucleated RBC Nucleated RBC % (auto) PT INR APTT Anion Gap Estim Creat Clear Calc Estimated GFR POC Glucose 152 H Random Glucose Calcium Magnesium Troponin I High Sens B-Natriuretic Peptide Microbiology Microbiology Results: Microbiology 03/21/23 17:41 Urine Culture - Final Urine clean catch - Urine hunt top 03/21/23 14:10 Blood Culture - Preliminary Blood - Venous No growth after 24 hours. 03/21/23 14:01 Blood Culture - Preliminary Blood - Venous No growth after 24 hours. Assessment and Plan (1) Paroxysmal atrial fibrillation: Status: Acute (2) Decompensated heart failure: Status: Acute (3) Pneumonia: Status: Acute (4) NSTEMI (non-ST elevated myocardial infarction): Status: Acute Plan This is a 77 year old Citizen Of [place] speaking female with history of diabetes, hypertension, hyperlipidemia admitted with pneumonia and elevated cardiac enzymes and acute CHF Sepsis secondary to CAP Tachycardia, tachypnea. LA wnl chest CT showing multifocal infection/aspiration seen by speech, no dysphagia/signs of aspiration Continue Rocephin and azithromycin, started 03/21 continue supplemental oxygen as needed robitussin for cough blood cultures negative to date NSTEMI elevated troponin, peaked around 400 and then trended down. no chest pain Echocardiogram with no WMA but repeat EKG showing deep T-wave inversions in inferiolateral and anterolateral leads- likely has underlying coronary artery disease Continue beta-ericka, asa, statin Will add nitropaste Cardiology following, will require ischemic workup, possible stress test sunday Continue cardiac monitoring Acute HFpEF no history of CHF echo with preserved EF appears volume overloaded, will resume IV Lasix Monitor Is&Os cardiology following Paroxysmal atrial fibrillation Patient had episode of atrial fibrillation 03/22, converted back to sinus rhythm Currently on Lovenox for anticoagulation pulmonary nodule 1.1cm lung nodule outpatient follow up Hypertension BP controlled continue HCTZ, losartan lopressor added as above HLD continue statin Diabetes mellitus 2 continue lantus trulicity on hold SSI, ada diet Obesity. BMI 35.5 Discussed importance of weight management as this may be contributing to worsening of other comorbidities DVT prophylaxis - Lovenox Attending Dr. Pfeiffer Full code Patient requires ongoing inpatient hospitalization for management of pneumonia, further workup for elevated cardiac enzymes Time Spent With Patient Time: Total time managing care of this patient today ____ minutes. Quality Stroke Does the patient have a stroke diagnosis?: No VTE Prior VTE?: No VTE Risk Level:: Medical - moderate - high VTE Device Contraindication: Treatment Not Indicated VTE Drug Contraindication: N/A - Med Ordered
--- NOTE | 2023-03-23 12:50 | MHC.CM.PN ---
PATIENT STILL ACUTE AND WILL REMAIN THE WEEKEND. POSSIBLE STRESS TEST ON Sunday03/26/23
[2023-03-23] MEDS: cefTRIAXone sodium 1 GM in 0.9 % Sodium Chloride 50 ML IV (13:29)
[2023-03-23] MEDS: Nitroglycerin 2 % Oint 1 GM Packet 0.5 INCH TRANSDERMA ×2 (13:37→21:30)
[2023-03-23] MEDS: levalbuterol HCL 1.25 MG/3 ML VIAL.NEB INHALE ×2 (15:50→20:00)
[2023-03-23 16:05] LABS: Glucose, Whole Blood 90 mg/dL (60-115)
[2023-03-23] MEDS: Azithromycin 500 MG in 0.9 % Sodium Chloride 250 ML 125 MG IV (17:04)
[2023-03-23] MEDS: Furosemide 40 MG/4 ML VIAL IVPUSH (17:23)
--- NOTE | 2023-03-23 20:45 | PC.NURSE ---
Assumed care at 07:00. Patient drowsy and oriented x4, arouses to voice. Denies distress, although she endorses feeling a little better, her breathing was very wheezy, more expiratory than inspiratory. Her work of breathing she reported as better, but she was audibly wheezing from a few feet away. Reported has been only urinating a little despite lasix on 03/22. RT reports rales all up her back. Discussed with PA possibly breathing treatments and more lasix? Denied chest pain, denies dizziness, denies palpitations. Denies SOB. PA to bedside to assess.
[2023-03-23 21:09] LABS: Glucose, Whole Blood 111 mg/dL (60-115)
[2023-03-23] MEDS: Atorvastatin Calcium 40 MG TABLET PO (21:30)
[2023-03-24] VITALS (9 sets, daily range): BP systolic 132–167; BP diastolic 66–72; PULSE 57–72; RESP 16–20; TEMP 36.2–36.9; O2SAT 96–100; BMI 34.1
[2023-03-24] MEDS: Enoxaparin Sodium 100 MG/ML SYRINGE SUBCUT (05:41)
[2023-03-24 06:22] LABS: Anion Gap 13 (12-20); Blood Urea Nitrogen 30 mg/dL (9-16); Calcium 9.4 mg/dL (8.4-10.2); Carbon Dioxide 32 mmol/L (22-29); Chloride 95 mmol/L (96-108); Creatinine Clr Calc Pharmacy 53.1; Estimated Glomerular Filt Rate 52; Glucose Random 106 mg/dL (60-115); Potassium 3.5 mmol/L (3.3-5.1); Sodium 136 mmol/L (135-145)
[2023-03-24 07:12] LABS: Glucose, Whole Blood 123 mg/dL (60-115)
[2023-03-24 08:20] LABS: B Type Natriuretic Peptide 96 pg/mL (<100)
[2023-03-24] MEDS: Losartan Potassium 50 MG TABLET 100 MG PO (08:27)
[2023-03-24] MEDS: 0.9 % Sodium Chloride Flush 3 ML SYRINGE IVFLUSH ×3 (08:27→23:43)
[2023-03-24] MEDS: Metoprolol Tartrate 25 MG TABLET PO (08:27)
[2023-03-24] MEDS: Cholecalciferol (Vitamin D3) 25 MCG TABLET 50 MCG PO (08:27)
[2023-03-24] MEDS: Aspirin Enteric Coated 81 MG TABLET.DR PO (08:27)
[2023-03-24] MEDS: hydroCHLOROthiazide 25 MG TABLET PO (08:27)
[2023-03-24] MEDS: Furosemide 40 MG/4 ML VIAL IVPUSH (08:27)
[2023-03-24] MEDS: guaiFENesin LA 600 MG TAB.ER.12H PO ×2 (08:27→21:45)
[2023-03-24] MEDS: Nitroglycerin 2 % Oint 1 GM Packet 0.5 INCH TRANSDERMA (08:27)
[2023-03-24] MEDS: levalbuterol HCL 1.25 MG/3 ML VIAL.NEB INHALE ×4 (08:30→21:20)
--- NOTE | 2023-03-24 11:07 | P.PNIM_ITS ---
Subjective Subjective Date of Service: 03/24/23 Interval History: seen and examined this morning follow up for pneumonia, CHF History obtained with the assistance of a parts interpreter had a better night, no orthopnea. still with productive cough. denies fever, chest pain, palpitations Review of Systems Review of Systems: Yes all other systems are reviewed and are negative Constitutional Constitutional: Denies chills and Denies fever(s) ENT Ears, Nose, Mouth, and Throat: Denies dizziness Cardiovascular Cardiovascular: Denies chest pain and Denies palpitations Respiratory Respiratory: Reports cough Gastrointestinal Gastrointestinal: Denies abdominal pain, Denies nausea and Denies vomiting Neurologic Neurologic: Denies dizziness Endocrine Endocrine: Denies palpitations Physical Exam Vital Signs: Vital Signs: Last Vital Signs Temp 97.8 F 03/24/23 07:14 Pulse 57 03/24/23 08:32 Resp 18 03/24/23 08:32 BP 150/67 H 03/24/23 07:14 Pulse Ox 98 03/24/23 07:14 O2 Del Method Room Air 03/24/23 07:14 O2 Flow Rate 2 03/24/23 04:00 BMI result Body Mass Index 34.1 Const: General: comfortable, no acute distress, alert and awake Nutritional Appearance: overweight Orientation/consciousness: patient oriented x3 Resp: Other: b/l rales, scattered wheezing - wheezing improving Effort & Inspection: normal respiratory effort, able to speak in complete sentences, no respiratory distress and no use of accessory muscles Cardio: Rate: regular rate Heart sounds: S1 normal heart sound present and S2 normal heart sound present GI: Inspection: No distended Palpation (GI): Soft to palpation and nontender Neuro: General: patient oriented x3 and CN's II-XI intact bilaterally Extrem: General: Yes no pedal edema Objective Data Active Medications Acetaminophen (Acetaminophen 325 Mg Tablet) 650 mg PO Q6H PRN PRN Reason: Pain, Mild (Pain Scale 1-3) Aspirin (Aspirin Enteric Coated 81 Mg Tablet.) 81 mg PO DAILY [facility] Last Admin: 03/24/23 08:27 Dose: 81 mg Documented By: SHANA Atorvastatin Calcium (Atorvastatin Calcium 40 Mg Tablet) 40 mg PO BEDTIME [facility] Last Admin: 03/23/23 21:30 Dose: 40 mg Documented By: SHY Benzonatate (Benzonatate 100 Mg Capsule) 100 mg PO TID PRN PRN Reason: cough Enoxaparin Sodium (Enoxaparin Sodium 100 Mg/Ml Syringe) 100 mg 1 mg/kg (100 mg) SUBCUT Q12H [facility] Last Admin: 03/24/23 05:41 Dose: 100 mg Documented By: SHY Furosemide (Furosemide 40 Mg/4 Ml Vial) 40 mg IVPUSH BID@0900,1800 [facility]; Protocol Last Admin: 03/24/23 08:27 Dose: 40 mg Documented By: SHANA Glucose (Glucose Gel 15 Gm Gel..Gram.) 15 gm PO Q15M PRN; Protocol PRN Reason: per Hypoglycemia Standing Ord. Guaifenesin (Guaifenesin La 600 Mg Tab.Er.12h) 600 mg PO BID [facility] Last Admin: 03/24/23 08:27 Dose: 600 mg Documented By: SHANA Hydrochlorothiazide (Hydrochlorothiazide 25 Mg Tablet) 25 mg PO DAILY [facility]; Protocol Last Admin: 03/24/23 08:27 Dose: 25 mg Documented By: SHANA Dextrose (D10) 250 mls @ 750 mls/hr IV Q15M PRN; Protocol PRN Reason: per Hypoglycemia Standing Ord. Azithromycin 500 mg/ Sodium (Chloride) 250 mls @ 125 mls/hr IV Q24H [facility] Last Infusion: 03/23/23 21:24 Dose: 0 mls/hr Documented By: SHY Ceftriaxone Sodium 1 gm/ (Sodium Chloride) 50 mls @ 100 mls/hr IV Q24H [facility] Last Infusion: 03/23/23 15:28 Dose: 0 mls/hr Documented By: CHRISTIANE Insulin Glargine (Insulin Glargine,Hum.Rec.Anlog 100 Unit/Ml 10 Ml Vial) 14 unit SUBCUT BEDTIME [facility] Last Admin: 03/23/23 21:23 Dose: Not Given Documented By: SHY Non-Admin Reason: pt has poor PO intake Insulin Human Lispro (Insulin Lispro 100 Unit/Ml 3 Ml Vial) 0 unit SUBCUT QIDACHS [facility]; Protocol Last Admin: 03/24/23 08:16 Dose: Not Given Documented By: SHANA Non-Admin Reason: No Insulin Coverage Levalbuterol HCl (Levalbuterol Hcl 1.25 Mg/3 Ml Vial.Neb) 1.25 mg INHALE RQ4H WHILE AWAKE [facility] Last Admin: 03/24/23 08:30 Dose: 1.25 mg Documented By: MARISELA Levalbuterol HCl (Levalbuterol Hcl 1.25 Mg/3 Ml Vial.Neb) 1.25 mg INHALE Q4H PRN PRN Reason: Shortness of Breath/Wheezing Losartan Potassium (Losartan Potassium 50 Mg Tablet) 100 mg PO DAILY [facility]; Protocol Last Admin: 03/24/23 08:27 Dose: 100 mg Documented By: SHANA Metoprolol Tartrate (Metoprolol Tartrate 25 Mg Tablet) 25 mg PO BID [facility]; Protocol Last Admin: 03/24/23 08:27 Dose: 25 mg Documented By: SHANA Nitroglycerin (Nitroglycerin 2 % Oint 1 Gm Packet) 0.5 inch TRANSDERMA RQ6H WHILE AWAKE [facility] Last Admin: 03/24/23 08:27 Dose: 0.5 inch Documented By: SHANA Ondansetron HCl (Ondansetron Hcl 4 Mg/2 Ml Vial) 4 mg IVPUSH Q8H PRN PRN Reason: Nausea and Vomiting Last Admin: 03/23/23 01:02 Dose: 4 mg Documented By: JOSE Pharmacy Consult (Consult Rx Perform Med Rec) 1 each MISCELLANE ONCE PRN PRN Reason: Consult order Sodium Chloride (0.9 % Sodium Chloride Flush 3 Ml Syringe) 3 ml IVFLUSH QSHIFT [facility] Last Admin: 03/24/23 08:27 Dose: 3 ml Documented By: SHANA Vitamin D (Cholecalciferol (Vitamin D3) 25 Mcg Tablet) 50 mcg PO DAILY [facility] Last Admin: 03/24/23 08:27 Dose: 50 mcg Documented By: SHANA Labs 03/23/23 05:36 03/24/23 05:28 Labs: Laboratory Results - last 24 hr 03/23/23 03/23/23 03/23/23 11:11 16:00 21:00 Anion Gap Estim Creat Clear Calc Estimated GFR POC Glucose 152 H 90 111 Random Glucose Calcium B-Natriuretic Peptide 03/24/23 03/24/23 03/24/23 05:28 05:28 07:06 Anion Gap 13 Estim Creat Clear Calc 53.1 Estimated GFR 52 POC Glucose 123 H Random Glucose 106 Calcium 9.4 B-Natriuretic Peptide 96 Microbiology Microbiology Results: Microbiology 03/21/23 14:10 Blood Culture - Preliminary Blood - Venous No growth after 48 hours. 03/21/23 14:01 Blood Culture - Preliminary Blood - Venous No growth after 48 hours. 03/21/23 17:41 Urine Culture - Final Urine clean catch - Urine hunt top Assessment and Plan (1) NSTEMI (non-ST elevated myocardial infarction): Status: Acute (2) Paroxysmal atrial fibrillation: Status: Acute (3) Decompensated heart failure: Status: Acute (4) Pneumonia: Status: Acute Plan This is a 77 year old [place]ian speaking female with history of diabetes, hypertension, hyperlipidemia admitted with pneumonia and elevated cardiac enzymes and acute CHF Sepsis secondary to CAP met criteria with tachycardia, tachypnea. LA wnl chest CT showing multifocal infection/aspiration seen by speech, no dysphagia/signs of aspiration Continue Rocephin and azithromycin, started 03/21 continue supplemental oxygen as needed robitussin for cough blood cultures negative to date NSTEMI elevated troponin, peaked around 400 and then trended down. no chest pain Echocardiogram with no WMA but repeat EKG showing deep T-wave inversions in inferiolateral and anterolateral leads- likely has underlying coronary artery disease Continue beta-ericka, asa, statin Will add nitropaste Cardiology following, will require ischemic workup, possible stress test sunday Continue cardiac monitoring Acute HFpEF no history of CHF echo with preserved EF appears volume overloaded, continue IV Lasix Monitor Is&Os cardiology following BNP trending down Paroxysmal atrial fibrillation Patient had episode of atrial fibrillation 03/22, converted back to sinus rhythm Currently on Lovenox for anticoagulation pulmonary nodule 1.1cm lung nodule outpatient follow up Hypertension BP controlled continue HCTZ, losartan lopressor added as above HLD continue statin Diabetes mellitus 2 continue lantus trulicity on hold SSI, ada diet Obesity. BMI 35.5 Discussed importance of weight management as this may be contributing to worsening of other comorbidities DVT prophylaxis - Lovenox Attending Dr. Carrizales Full code Patient requires ongoing inpatient hospitalization for management of pneumonia, further workup for elevated cardiac enzymes Time Spent With Patient Time: Total time managing care of this patient today ____ minutes. Quality Stroke Does the patient have a stroke diagnosis?: No VTE Prior VTE?: No VTE Risk Level:: Medical - moderate - high VTE Device Contraindication: Treatment Not Indicated VTE Drug Contraindication: N/A - Med Ordered
[2023-03-24 11:12] LABS: Glucose, Whole Blood 140 mg/dL (60-115)
--- NOTE | 2023-03-24 11:44 | PM.PNCARD ---
Subjective Subjective Date of Service: 03/24/23 Principal diagnosis: Elevated cardiac biomarkers, CHF Interval history: Patient said her respiratory has gradually improved. Her BNP is normalized. Blood pressure is stable. She denies any chest pain. No overnight atrial fibrillation. Review of Systems Constitutional: Reports weakness Cardiovascular: Denies chest pain, Denies leg edema, Denies lightheadedness, Denies palpitations and Reports dyspnea on exertion Respiratory: Reports dyspnea on exertion and Reports wheezing Gastrointestinal: Reports no additional gastrointestinal complaints Musculoskeletal: Reports no additional musculoskeletal complaints Reports system reviewed and no additional complaints, except as documented and Reports weakness Psychiatric: Reports no additional psychiatric complaints Endocrine: Denies palpitations Allergic/Immunologic: Reports wheezing Physical Exam Vital Signs: Last Vital Signs Temp 97.8 F 03/24/23 07:14 Pulse 57 03/24/23 08:32 Resp 18 03/24/23 08:32 BP 150/67 H 03/24/23 07:14 Pulse Ox 98 03/24/23 07:14 O2 Del Method Room Air 03/24/23 07:14 O2 Flow Rate 2 03/24/23 04:00 BMI result Body Mass Index 34.1 Const General: cooperative, alert, awake and tired appearing Nutritional Appearance: obese Orientation/consciousness: patient oriented x3 Resp Effort & Inspection: normal respiratory effort Auscultation: wheezes Cardio Jugular venous distension: no JVD Rate: regular rate Rhythm: regular rhythm Heart sounds: S1 normal heart sound present, S2 normal heart sound present, no click, no gallops and no murmurs GI Auscultation: normal bowel sounds Skin General skin exam: no rashes or lesions noted Neuro General: patient oriented x3 and no focal motor deficits Objective Labs and Meds 03/23/23 05:36 03/24/23 05:28 Lab results: Laboratory Results - last 24 hr 03/23/23 03/23/23 03/24/23 16:00 21:00 05:28 Sodium 136 Potassium 3.5 Chloride 95 L Carbon Dioxide 32 H Anion Gap 13 BUN 30 H Creatinine 1.03 Estim Creat Clear Calc 53.1 Estimated GFR 52 POC Glucose 90 111 Random Glucose 106 Calcium 9.4 B-Natriuretic Peptide 03/24/23 03/24/23 03/24/23 05:28 07:06 11:08 Sodium Potassium Chloride Carbon Dioxide Anion Gap BUN Creatinine Estim Creat Clear Calc Estimated GFR POC Glucose 123 H 140 H Random Glucose Calcium B-Natriuretic Peptide 96 Progress Note: A&P Assessment and plan (1) NSTEMI (non-ST elevated myocardial infarction): Status: Acute Assessment and Plan: NSTEMI, most likely still appears to be secondary to her acute respiratory illness. Although high likelihood of underlying coronary artery disease. No cardiac symptoms at current time. Continue metoprolol, aspirin, statins as well as will change to isosorbide 30 mg b.i.d.. If she remains bronchospastic could be difficult to do vaso dilator myocardial perfusion imaging as it may induce further bronchospasm. May need to be pursued as an outpatient. (2) Decompensated heart failure: Status: Acute Assessment and Plan: Acute respiratory failure with decompensated heart failure secondary to acute myocardial distress. BNP is normalized with diuresis. Clinically does appear to be in overt heart failure. Switch to p.o. Lasix. Add Jardiance 10 mg to regimen. Continue manage myocardial ischemia. Continue treatment for broncho spastic airway disease. (3) Paroxysmal atrial fibrillation: Status: Acute Assessment and Plan: Paroxysmal atrial fibrillation without any clinical recurrence at this point time. No need for antiarrhythmic drug therapy. Continue metoprolol therapy. Switch to p.o. Eliquis if clinically no contraindications. Currently on Lovenox therapy. Will continue to follow with you Time Spent With Patient Time: Total time managing care of this patient today ____ minutes. Progress Note: Quality Stroke Does the patient have a stroke diagnosis?: No Procedures Date of Service Date of Service: 03/24/23
[2023-03-24] MEDS: cefTRIAXone sodium 1 GM in 0.9 % Sodium Chloride 50 ML IV (14:17)
[2023-03-24 16:45] LABS: Glucose, Whole Blood 177 mg/dL (60-115)
[2023-03-24] MEDS: Azithromycin 500 MG in 0.9 % Sodium Chloride 250 ML 125 MG IV (16:53)
[2023-03-24] MEDS: Insulin Lispro 100 UNIT/ML 3 ML VIAL SUBCUT (17:03)
[2023-03-24 20:48] LABS: Glucose, Whole Blood 146 mg/dL (60-115)
[2023-03-24] MEDS: Insulin Glargine,Hum.rec.anlog 100 UNIT/ML 10 ML VIAL 14 UNIT SUBCUT (21:42)
[2023-03-24] MEDS: Apixaban 5 MG TABLET PO (21:45)
[2023-03-24] MEDS: Atorvastatin Calcium 40 MG TABLET PO (21:45)
[2023-03-24] MEDS: Isosorbide Mononitrate 30 MG TAB.ER.24H PO (21:48)
[2023-03-25] VITALS (7 sets, daily range): BP systolic 128–181; BP diastolic 61–82; PULSE 61–76; RESP 18–20; TEMP 36.4–37.1; O2SAT 94–98; BMI 34.6
[2023-03-25 06:54] LABS: Hemoglobin 10.5 g/dl (12.0-16.0); Mean Corpuscular HGB Conc 31.8 g/dl (31.0-35.0); Mean Corpuscular Hemoglobin 28.3 pg (27.0-33.0); Mean Corpuscular Volume 88.9 fL (80.0-98.0); Mean Platelet Volume 12.3 fL (9.4-12.3); Platelet Count 204 X10*3/uL (160-400); Red Blood Count 3.71 X10*6/uL (4.20-5.50); Red Cell Distribution Width 13.1 % (11.0-16.0); White Blood Count 4.3 X10*3/uL (4.8-10.8)
[2023-03-25 06:59] LABS: Anion Gap 13 (12-20); Blood Urea Nitrogen 32 mg/dL (9-16); Calcium 9.9 mg/dL (8.4-10.2); Carbon Dioxide 32 mmol/L (22-29); Chloride 96 mmol/L (96-108); Creatinine Clr Calc Pharmacy 63.4; Estimated Glomerular Filt Rate > 60; Glucose Random 125 mg/dL (60-115); Potassium 3.6 mmol/L (3.3-5.1); Sodium 137 mmol/L (135-145)
[2023-03-25 07:41] LABS: Glucose, Whole Blood 122 mg/dL (60-115)
[2023-03-25] MEDS: 0.9 % Sodium Chloride Flush 3 ML SYRINGE IVFLUSH ×3 (09:26→23:42)
[2023-03-25] MEDS: Isosorbide Mononitrate 30 MG TAB.ER.24H PO ×2 (09:26→20:56)
[2023-03-25] MEDS: Aspirin Enteric Coated 81 MG TABLET.DR PO (09:26)
[2023-03-25] MEDS: Empagliflozin 10 MG TABLET PO (09:26)
[2023-03-25] MEDS: Losartan Potassium 50 MG TABLET 100 MG PO (09:26)
[2023-03-25] MEDS: Metoprolol Tartrate 25 MG TABLET PO ×2 (09:26→20:56)
[2023-03-25] MEDS: Apixaban 5 MG TABLET PO ×2 (09:26→20:54)
[2023-03-25] MEDS: guaiFENesin LA 600 MG TAB.ER.12H PO ×2 (09:26→20:53)
[2023-03-25] MEDS: Cholecalciferol (Vitamin D3) 25 MCG TABLET 50 MCG PO (09:26)
[2023-03-25] MEDS: Furosemide 40 MG TABLET PO (09:27)
--- NOTE | 2023-03-25 10:01 | HO.PM.IMPN ---
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 breathing improving, still with productive cough, no sob feeling constipated, no abdominal pain Review of Systems Review of Systems: Yes all other systems are reviewed and are negative Constitutional Constitutional: Denies chills and Denies fever(s) ENT Ears, Nose, Mouth, and Throat: Denies dizziness Cardiovascular Cardiovascular: Denies chest pain, Denies palpitations and Denies dyspnea Respiratory Respiratory: Reports cough and Denies dyspnea Gastrointestinal Gastrointestinal: Denies abdominal pain, Reports constipation, Denies nausea and Denies vomiting Neurologic Neurologic: Denies dizziness Endocrine Endocrine: Denies palpitations Physical Exam Vital Signs: Vital Signs: Last Vital Signs Temp 98.4 F 03/25/23 07:39 Pulse 63 03/25/23 07:39 Resp 18 03/25/23 07:39 BP 128/61 03/25/23 07:39 Pulse Ox 97 03/25/23 07:39 O2 Del Method Nasal Cannula 03/25/23 07:39 O2 Flow Rate 2.0 03/25/23 07:39 BMI result Body Mass Index 34.6 Const: General: cooperative, comfortable, no acute distress, alert and awake Nutritional Appearance: overweight Orientation/consciousness: patient oriented x3 Resp: Other: scattered wheezing - wheezing improving Effort & Inspection: normal respiratory effort, able to speak in complete sentences, no respiratory distress and no use of accessory muscles Cardio: Rate: regular rate Heart sounds: S1 normal heart sound present and S2 normal heart sound present GI: Inspection: No distended Palpation (GI): Soft to palpation and nontender Neuro: General: patient oriented x3 and CN's II-XI intact bilaterally Extrem: Other: trace leg edema Objective Data Active Medications Acetaminophen (Acetaminophen 325 Mg Tablet) 650 mg PO Q6H PRN PRN Reason: Pain, Mild (Pain Scale 1-3) Apixaban (Apixaban 5 Mg Tablet) 5 mg PO BID [facility] Last Admin: 03/25/23 09:26 Dose: 5 mg Documented By: SHANA Aspirin (Aspirin Enteric Coated 81 Mg Tablet.) 81 mg PO DAILY [facility] Last Admin: 03/25/23 09:26 Dose: 81 mg Documented By: SHANA Atorvastatin Calcium (Atorvastatin Calcium 40 Mg Tablet) 40 mg PO BEDTIME [facility] Last Admin: 03/24/23 21:45 Dose: 40 mg Documented By: ELVIRA Benzonatate (Benzonatate 100 Mg Capsule) 100 mg PO TID PRN PRN Reason: cough Bisacodyl (Bisacodyl 5 Mg Tablet.Dr) 5 mg PO DAILY PRN PRN Reason: Constipation Docusate Sodium (Docusate Sodium 100 Mg Capsule) 100 mg PO BEDTIME [facility] Empagliflozin (Empagliflozin 10 Mg Tablet) 10 mg PO DAILY [facility] Last Admin: 03/25/23 09:26 Dose: 10 mg Documented By: SHANA Furosemide (Furosemide 40 Mg Tablet) 40 mg PO DAILY [facility]; Protocol Last Admin: 03/25/23 09:27 Dose: 40 mg Documented By: SHANA Glucose (Glucose Gel 15 Gm Gel..Gram.) 15 gm PO Q15M PRN; Protocol PRN Reason: per Hypoglycemia Standing Ord. Guaifenesin (Guaifenesin La 600 Mg Tab.Er.12h) 600 mg PO BID [facility] Last Admin: 03/25/23 09:26 Dose: 600 mg Documented By: SHANA Dextrose (D10) 250 mls @ 750 mls/hr IV Q15M PRN; Protocol PRN Reason: per Hypoglycemia Standing Ord. Azithromycin 500 mg/ Sodium (Chloride) 250 mls @ 125 mls/hr IV Q24H [facility] Last Infusion: 03/24/23 19:02 Dose: 0 mls/hr Documented By: ELVIRA Ceftriaxone Sodium 1 gm/ (Sodium Chloride) 50 mls @ 100 mls/hr IV Q24H [facility] Last Infusion: 03/24/23 14:55 Dose: 0 mls/hr Documented By: SHANA Insulin Glargine (Insulin Glargine,Hum.Rec.Anlog 100 Unit/Ml 10 Ml Vial) 14 unit SUBCUT BEDTIME [facility] Last Admin: 03/24/23 21:42 Dose: 14 unit Documented By: ELVIRA Insulin Human Lispro (Insulin Lispro 100 Unit/Ml 3 Ml Vial) 0 unit SUBCUT QIDACHS [facility]; Protocol Last Admin: 03/25/23 09:02 Dose: Not Given Documented By: SHANA Non-Admin Reason: No Insulin Coverage Isosorbide Mononitrate (Isosorbide Mononitrate 30 Mg Tab.Er.24h) 30 mg PO BID [facility]; Protocol Last Admin: 03/25/23 09:26 Dose: 30 mg Documented By: SHANA Levalbuterol HCl (Levalbuterol Hcl 1.25 Mg/3 Ml Vial.Neb) 1.25 mg INHALE RQ4H WHILE AWAKE [facility] Last Admin: 03/25/23 08:20 Dose: Not Given Documented By: MARISELA Non-Admin Reason: Patient Asleep Levalbuterol HCl (Levalbuterol Hcl 1.25 Mg/3 Ml Vial.Neb) 1.25 mg INHALE Q4H PRN PRN Reason: Shortness of Breath/Wheezing Losartan Potassium (Losartan Potassium 50 Mg Tablet) 100 mg PO DAILY [facility]; Protocol Last Admin: 03/25/23 09:26 Dose: 100 mg Documented By: SHANA Metoprolol Tartrate (Metoprolol Tartrate 25 Mg Tablet) 25 mg PO BID [facility]; Protocol Last Admin: 03/25/23 09:26 Dose: 25 mg Documented By: SHANA Ondansetron HCl (Ondansetron Hcl 4 Mg/2 Ml Vial) 4 mg IVPUSH Q8H PRN PRN Reason: Nausea and Vomiting Last Admin: 03/23/23 01:02 Dose: 4 mg Documented By: JOSE Pharmacy Consult (Consult Rx Perform Med Rec) 1 each MISCELLANE ONCE PRN PRN Reason: Consult order Polyethylene Glycol (Polyethylene Glycol 3350 17 Gm Powd.Pack) 17 gm PO DAILY [facility] Sodium Chloride (0.9 % Sodium Chloride Flush 3 Ml Syringe) 3 ml IVFLUSH QSHIFT [facility] Last Admin: 03/25/23 09:26 Dose: 3 ml Documented By: SHANA Vitamin D (Cholecalciferol (Vitamin D3) 25 Mcg Tablet) 50 mcg PO DAILY [facility] Last Admin: 03/25/23 09:26 Dose: 50 mcg Documented By: SHANA Labs 03/25/23 05:35 03/25/23 05:35 Labs: Laboratory Results - last 24 hr 03/24/23 03/24/23 03/24/23 11:08 16:40 20:41 MCV MCH MCHC RDW Plt Count MPV Absolute Nucleated RBC Nucleated RBC % (auto) Anion Gap Estim Creat Clear Calc Estimated GFR POC Glucose 140 H 177 H 146 H Random Glucose Calcium 03/25/23 03/25/23 03/25/23 05:35 05:35 07:37 MCV 88.9 MCH 28.3 MCHC 31.8 RDW 13.1 Plt Count 204 D MPV 12.3 Absolute Nucleated RBC 0.000 Nucleated RBC % (auto) 0.0 Anion Gap 13 Estim Creat Clear Calc 63.4 Estimated GFR > 60 POC Glucose 122 H Random Glucose 125 H Calcium 9.9 Assessment and Plan (1) NSTEMI (non-ST elevated myocardial infarction): Status: Acute (2) Paroxysmal atrial fibrillation: Status: Acute (3) Decompensated heart failure: Status: Acute (4) Pneumonia: Status: Acute Plan This is a 77 year old [place]ovan speaking female with history of diabetes, hypertension, hyperlipidemia admitted with pneumonia and elevated cardiac enzymes and acute CHF Sepsis secondary to CAP met criteria with tachycardia, tachypnea. LA wnl chest CT showing multifocal infection/aspiration seen by speech, no dysphagia/signs of aspiration Continue Rocephin and azithromycin, started 03/21 - likely plan for 7 days blood cultures negative to date wean oxygen as tolerated NSTEMI elevated troponin, peaked around 400 and then trended down. no chest pain Echocardiogram with no WMA but repeat EKG showing deep T-wave inversions in inferiolateral and anterolateral leads- likely has underlying coronary artery disease Continue beta-ericka, asa, statin nitro paste changed to imdur jardiance added Cardiology following, will require ischemic workup, possible stress test sunday Continue cardiac monitoring Acute HFpEF no history of CHF echo with preserved EF Is&Os not accurate BNP trending down will transition to po lasix cardiology following Paroxysmal atrial fibrillation Patient had episode of atrial fibrillation 03/22, converted back to sinus rhythm Initially on Lovenox for anticoagulation, will transition to Manjit pulmonary nodule 1.1cm lung nodule will need outpatient follow up Hypertension continue losartan lopressor added as above HCTZ d/c HLD continue statin Diabetes mellitus 2 continue lantus trulicity on hold SSI, ada diet Obesity. BMI 35.5 Discussed importance of weight management as this may be contributing to worsening of other comorbidities DVT prophylaxis - Manjit Attending Dr. Beltran Full code Patient requires ongoing inpatient hospitalization for management of pneumonia, possible stress test Time Spent With Patient Time: Total time managing care of this patient today ____ minutes. Quality Stroke Does the patient have a stroke diagnosis?: No VTE Prior VTE?: No VTE Risk Level:: Medical - moderate - high VTE Device Contraindication: Treatment Not Indicated VTE Drug Contraindication: N/A - Med Ordered
[2023-03-25] MEDS: bisacodyL 5 MG TABLET.DR PO (10:31)
[2023-03-25] MEDS: methylPREDNISolone Sod Succ 40 MG/ML VIAL IVPUSH (10:31)
--- NOTE | 2023-03-25 11:09 | PM.PNCARD ---
Subjective Subjective Date of Service: 03/25/23 Principal diagnosis: Elevated cardiac biomarkers, CHF Interval history: Breathing better. Still wheezing. No rales. No chest pain. Denies any palpitations. Review of Systems Review of Systems Yes all other systems are reviewed and are negative Physical Exam Vital Signs: Last Vital Signs Temp 98.4 F 03/25/23 07:39 Pulse 63 03/25/23 07:39 Resp 18 03/25/23 07:39 BP 128/61 03/25/23 07:39 Pulse Ox 94 03/25/23 10:19 O2 Del Method Room Air 03/25/23 10:19 O2 Flow Rate 2.0 03/25/23 07:39 BMI result Body Mass Index 34.6 Const General: cooperative, alert, awake and tired appearing Nutritional Appearance: obese Orientation/consciousness: patient oriented x3 Resp Effort & Inspection: normal respiratory effort Auscultation: wheezes Cardio Jugular venous distension: no JVD Rate: regular rate Rhythm: regular rhythm Heart sounds: S1 normal heart sound present, S2 normal heart sound present, no click, no gallops and no murmurs GI Auscultation: normal bowel sounds Skin General skin exam: no rashes or lesions noted Neuro General: patient oriented x3 and no focal motor deficits Objective Labs and Meds 03/25/23 05:35 03/25/23 05:35 Lab results: Laboratory Results - last 24 hr 03/24/23 03/24/23 03/24/23 11:08 16:40 20:41 WBC RBC Hgb Hct MCV MCH MCHC RDW Plt Count MPV Absolute Nucleated RBC Nucleated RBC % (auto) Sodium Potassium Chloride Carbon Dioxide Anion Gap BUN Creatinine Estim Creat Clear Calc Estimated GFR POC Glucose 140 H 177 H 146 H Random Glucose Calcium 03/25/23 03/25/23 03/25/23 05:35 05:35 07:37 WBC 4.3 L RBC 3.71 L Hgb 10.5 L Hct 33.0 L MCV 88.9 MCH 28.3 MCHC 31.8 RDW 13.1 Plt Count 204 D MPV 12.3 Absolute Nucleated RBC 0.000 Nucleated RBC % (auto) 0.0 Sodium 137 Potassium 3.6 Chloride 96 Carbon Dioxide 32 H Anion Gap 13 BUN 32 H Creatinine 0.87 Estim Creat Clear Calc 63.4 Estimated GFR > 60 POC Glucose 122 H Random Glucose 125 H Calcium 9.9 Progress Note: A&P Assessment and plan (1) NSTEMI (non-ST elevated myocardial infarction): Status: Acute Assessment and Plan: NSTEMI still appears to be secondary to acute medical illness related to multi lobar pneumonia. Also possibility of myocarditis. Echocardiogram shows preserved LV ejection fraction. Given her persistent wheezing, would avoid doing a vasodilating myocardial perfusion imaging for now. Will followed up in 2 weeks time. Outpatient follow-up after the stress test will be pursued. Continue aspirin, high-intensity statin and metoprolol therapy. She also on full oral anticoagulation with Eliquis, see below. (2) Paroxysmal atrial fibrillation: Status: Acute Assessment and Plan: Paroxysmal atrial fibrillation also induced by acute medical illness. Follow-up with outpatient Holter monitor. Continue metoprolol therapy. Continue Eliquis 5 mg b.i.d.. Follow-up as outpatient. (3) Decompensated heart failure: Status: Acute Assessment and Plan: Decompensated heart failure in the setting of acute pulmonary illness and acute myocardial injury. Currently doing well. Continue Jardiance. Will reduce Lasix to 20 mg daily. Heart failure education should be provided. Will follow up in 4 weeks in the clinic. Thank you for allowing me to partake in her care Time Spent With Patient Time: Total time managing care of this patient today ____ minutes. Progress Note: Quality Stroke Does the patient have a stroke diagnosis?: No Procedures Date of Service Date of Service: 03/25/23
[2023-03-25 11:11] LABS: Glucose, Whole Blood 206 mg/dL (60-115)
[2023-03-25] MEDS: Benzonatate 100 MG CAPSULE PO (11:52)
[2023-03-25] MEDS: Insulin Lispro 100 UNIT/ML 3 ML VIAL SUBCUT ×3 (11:52→20:52)
[2023-03-25] MEDS: polyethylene glycoL 3350 17 GM POWD.PACK PO (14:34)
[2023-03-25] MEDS: cefTRIAXone sodium 1 GM in 0.9 % Sodium Chloride 50 ML IV (14:34)
[2023-03-25] MEDS: Azithromycin 500 MG in 0.9 % Sodium Chloride 250 ML 125 MG IV (16:00)
[2023-03-25 16:21] LABS: Glucose, Whole Blood 205 mg/dL (60-115)
[2023-03-25] MEDS: levalbuterol HCL 1.25 MG/3 ML VIAL.NEB INHALE (19:02)
[2023-03-25 20:14] LABS: Glucose, Whole Blood 172 mg/dL (60-115)
[2023-03-25] MEDS: Insulin Glargine,Hum.rec.anlog 100 UNIT/ML 10 ML VIAL 14 UNIT SUBCUT (20:52)
[2023-03-25] MEDS: Docusate Sodium 100 MG CAPSULE PO (20:53)
[2023-03-25] MEDS: Atorvastatin Calcium 40 MG TABLET PO (20:54)
[2023-03-26] VITALS (11 sets, daily range): BP systolic 126–156; BP diastolic 58–68; PULSE 55–74; RESP 16–24; TEMP 36.1–36.3; O2SAT 92–99; BMI 34.9
[2023-03-26 07:17] LABS: Anion Gap 11 (12-20); Blood Urea Nitrogen 26 mg/dL (9-16); Calcium 10.3 mg/dL (8.4-10.2); Carbon Dioxide 34 mmol/L (22-29); Chloride 99 mmol/L (96-108); Creatinine Clr Calc Pharmacy 65.2; Estimated Glomerular Filt Rate > 60; Glucose Random 122 mg/dL (60-115); Sodium 140 mmol/L (135-145)
[2023-03-26 07:37] LABS: Glucose, Whole Blood 104 mg/dL (60-115)
[2023-03-26] MEDS: levalbuterol HCL 1.25 MG/3 ML VIAL.NEB INHALE ×4 (07:50→19:16)
[2023-03-26] MEDS: Apixaban 5 MG TABLET PO ×2 (09:53→20:57)
[2023-03-26] MEDS: Isosorbide Mononitrate 30 MG TAB.ER.24H PO ×2 (09:53→20:56)
[2023-03-26] MEDS: Metoprolol Tartrate 25 MG TABLET PO ×2 (09:53→20:57)
[2023-03-26] MEDS: Cholecalciferol (Vitamin D3) 25 MCG TABLET 50 MCG PO (09:53)
[2023-03-26] MEDS: Losartan Potassium 50 MG TABLET 100 MG PO (09:53)
[2023-03-26] MEDS: Furosemide 40 MG TABLET PO (09:53)
[2023-03-26] MEDS: polyethylene glycoL 3350 17 GM POWD.PACK PO (09:53)
[2023-03-26] MEDS: Empagliflozin 10 MG TABLET PO (09:53)
[2023-03-26] MEDS: 0.9 % Sodium Chloride Flush 3 ML SYRINGE IVFLUSH ×3 (09:54→20:57)
[2023-03-26] MEDS: guaiFENesin LA 600 MG TAB.ER.12H PO ×2 (09:54→20:57)
[2023-03-26] MEDS: Aspirin Enteric Coated 81 MG TABLET.DR PO (09:54)
[2023-03-26 11:12] LABS: Glucose, Whole Blood 158 mg/dL (60-115)
[2023-03-26] MEDS: Insulin Lispro 100 UNIT/ML 3 ML VIAL SUBCUT ×2 (12:32→20:57)
--- NOTE | 2023-03-26 13:04 | P.PNIM_ITS ---
Subjective Subjective Date of Service: 03/26/23 Interval History: seen and examined this morning follow up for pneumonia, CHF History obtained with the use of a knowledge manager breathing improving, still with productive cough, no sob feeling constipated, no abdominal pain Review of Systems Review of Systems: Yes all other systems are reviewed and are negative Constitutional Constitutional: Denies chills and Denies fever(s) ENT Ears, Nose, Mouth, and Throat: Denies dizziness Cardiovascular Cardiovascular: Denies chest pain, Denies palpitations and Denies dyspnea Respiratory Respiratory: Reports cough and Denies dyspnea Gastrointestinal Gastrointestinal: Denies abdominal pain, Reports constipation, Denies nausea and Denies vomiting Neurologic Neurologic: Denies dizziness Endocrine Endocrine: Denies palpitations Physical Exam Vital Signs: Vital Signs: Last Vital Signs Temp 97.2 F 03/26/23 07:28 Pulse 71 03/26/23 12:13 Resp 21 H 03/26/23 12:13 BP 131/64 03/26/23 07:28 Pulse Ox 99 03/26/23 07:28 O2 Del Method Nasal Cannula 03/26/23 07:28 O2 Flow Rate 2 03/26/23 07:28 BMI result Body Mass Index 34.9 Appearing in no acute distress lung sounds are clear to auscultation heart regular rate rhythm, clear S1, S2 positive bowel sounds, abdomen is soft, nontender neuro patient is alert x3, no focal deficits Objective Data Active Medications Acetaminophen (Acetaminophen 325 Mg Tablet) 650 mg PO Q6H PRN PRN Reason: Pain, Mild (Pain Scale 1-3) Apixaban (Apixaban 5 Mg Tablet) 5 mg PO BID [facility] Last Admin: 03/26/23 09:53 Dose: 5 mg Documented By: ANGELINA Aspirin (Aspirin Enteric Coated 81 Mg Tablet.) 81 mg PO DAILY [facility] Last Admin: 03/26/23 09:54 Dose: 81 mg Documented By: ANGELINA Atorvastatin Calcium (Atorvastatin Calcium 40 Mg Tablet) 40 mg PO BEDTIME [facility] Last Admin: 03/25/23 20:54 Dose: 40 mg Documented By: ELVIRA Benzonatate (Benzonatate 100 Mg Capsule) 100 mg PO TID PRN PRN Reason: cough Last Admin: 03/25/23 11:52 Dose: 100 mg Documented By: SHANA Bisacodyl (Bisacodyl 5 Mg Tablet.) 5 mg PO DAILY PRN PRN Reason: Constipation Last Admin: 03/25/23 10:31 Dose: 5 mg Documented By: SHANA Docusate Sodium (Docusate Sodium 100 Mg Capsule) 100 mg PO BEDTIME [facility] Last Admin: 03/25/23 20:53 Dose: 100 mg Documented By: ELVIRA Empagliflozin (Empagliflozin 10 Mg Tablet) 10 mg PO DAILY [facility] Last Admin: 03/26/23 09:53 Dose: 10 mg Documented By: ANGELINA Furosemide (Furosemide 40 Mg Tablet) 40 mg PO DAILY [facility]; Protocol Last Admin: 03/26/23 09:53 Dose: 40 mg Documented By: ANGELINA Glucose (Glucose Gel 15 Gm Gel..Gram.) 15 gm PO Q15M PRN; Protocol PRN Reason: per Hypoglycemia Standing Ord. Guaifenesin (Guaifenesin La 600 Mg Tab.Er.12h) 600 mg PO BID [facility] Last Admin: 03/26/23 09:54 Dose: 600 mg Documented By: ANGELINA Dextrose (D10) 250 mls @ 750 mls/hr IV Q15M PRN; Protocol PRN Reason: per Hypoglycemia Standing Ord. Azithromycin 500 mg/ Sodium (Chloride) 250 mls @ 125 mls/hr IV Q24H [facility] Last Infusion: 03/25/23 18:01 Dose: 0 mls/hr Documented By: ELVIRA Ceftriaxone Sodium 1 gm/ (Sodium Chloride) 50 mls @ 100 mls/hr IV Q24H [facility] Last Infusion: 03/25/23 15:05 Dose: 0 mls/hr Documented By: SHANA Insulin Glargine (Insulin Glargine,Hum.Rec.Anlog 100 Unit/Ml 10 Ml Vial) 14 unit SUBCUT BEDTIME [facility] Last Admin: 03/25/23 20:52 Dose: 14 unit Documented By: ELVIRA Insulin Human Lispro (Insulin Lispro 100 Unit/Ml 3 Ml Vial) 0 unit SUBCUT QIDACHS [facility]; Protocol Last Admin: 03/26/23 12:32 Dose: 2 unit Documented By: ANGELINA Comments: lunch delivered late Isosorbide Mononitrate (Isosorbide Mononitrate 30 Mg Tab.Er.24h) 30 mg PO BID [facility]; Protocol Last Admin: 03/26/23 09:53 Dose: 30 mg Documented By: ANGELINA Levalbuterol HCl (Levalbuterol Hcl 1.25 Mg/3 Ml Vial.Neb) 1.25 mg INHALE RQ4H WHILE AWAKE [facility] Last Admin: 03/26/23 12:12 Dose: 1.25 mg Documented By: JENNA Levalbuterol HCl (Levalbuterol Hcl 1.25 Mg/3 Ml Vial.Neb) 1.25 mg INHALE Q4H PRN PRN Reason: Shortness of Breath/Wheezing Losartan Potassium (Losartan Potassium 50 Mg Tablet) 100 mg PO DAILY [facility]; Protocol Last Admin: 03/26/23 09:53 Dose: 100 mg Documented By: ANGELINA Metoprolol Tartrate (Metoprolol Tartrate 25 Mg Tablet) 25 mg PO BID [facility]; Protocol Last Admin: 03/26/23 09:53 Dose: 25 mg Documented By: ANGELINA Ondansetron HCl (Ondansetron Hcl 4 Mg/2 Ml Vial) 4 mg IVPUSH Q8H PRN PRN Reason: Nausea and Vomiting Last Admin: 03/23/23 01:02 Dose: 4 mg Documented By: JOSE Pharmacy Consult (Consult Rx Perform Med Rec) 1 each MISCELLANE ONCE PRN PRN Reason: Consult order Polyethylene Glycol (Polyethylene Glycol 3350 17 Gm Powd.Pack) 17 gm PO DAILY [facility] Last Admin: 03/26/23 09:53 Dose: 17 gm Documented By: ANGELINA Sodium Chloride (0.9 % Sodium Chloride Flush 3 Ml Syringe) 3 ml IVFLUSH QSHIFT [facility] Last Admin: 03/26/23 09:54 Dose: 3 ml Documented By: ANGELINA Vitamin D (Cholecalciferol (Vitamin D3) 25 Mcg Tablet) 50 mcg PO DAILY [facility] Last Admin: 03/26/23 09:53 Dose: 50 mcg Documented By: ANGELINA Labs 03/25/23 05:35 03/26/23 05:34 Labs: Laboratory Results - last 24 hr 03/25/23 03/25/23 03/26/23 16:12 20:06 05:34 Anion Gap 11 L Estim Creat Clear Calc 65.2 Estimated GFR > 60 POC Glucose 205 H 172 H Random Glucose 122 H Calcium 10.3 H 03/26/23 03/26/23 07:27 11:06 Anion Gap Estim Creat Clear Calc Estimated GFR POC Glucose 104 158 H Random Glucose Calcium Assessment and Plan (1) NSTEMI (non-ST elevated myocardial infarction): Status: Acute (2) Paroxysmal atrial fibrillation: Status: Acute (3) Decompensated heart failure: Status: Acute (4) Pneumonia: Status: Acute Plan This is a 77 year old Russian speaking female with history of diabetes, hypertension, hyperlipidemia admitted with pneumonia and elevated cardiac enzymes and acute CHF Sepsis secondary to CAP met criteria with tachycardia, tachypnea. LA wnl chest CT showing multifocal infection/aspiration seen by speech, no dysphagia/signs of aspiration Continue Rocephin and azithromycin, started 03/21 - plan for 7 days blood cultures negative to date wean oxygen as tolerated NSTEMI elevated troponin, peaked around 400 and then trended down. no chest pain Echocardiogram with no WMA but repeat EKG showing deep T-wave inversions in inferiolateral and anterolateral leads- likely has underlying coronary artery disease Continue beta-ericka, asa, statin nitro paste changed to imdur jardiance added Cardiology following, will require ischemic workup, possible stress test sunday Continue cardiac monitoring Acute HFpEF no history of CHF echo with preserved EF Is&Os not accurate BNP trending down will transition to po lasix cardiology following Paroxysmal atrial fibrillation Patient had episode of atrial fibrillation 03/22, converted back to sinus rhythm Initially on Lovenox for anticoagulation, will transition to Eliquedda pulmonary nodule 1.1cm lung nodule will need outpatient follow up Hypertension continue losartan lopressor added as above HCTZ d/c HLD continue statin Diabetes mellitus 2 continue lantus trulicity on hold SSI, ada diet Obesity. BMI 35.5 Discussed importance of weight management as this may be contributing to worsening of other comorbidities DVT prophylaxis - Manjit Attending Dr. Pfeiffer Full code Patient requires ongoing inpatient hospitalization for management of pneumonia, possible stress test Time Spent With Patient Time: Total time managing care of this patient today ____ minutes. Quality Stroke Does the patient have a stroke diagnosis?: No VTE Prior VTE?: No VTE Risk Level:: Medical - moderate - high VTE Device Contraindication: Treatment Not Indicated VTE Drug Contraindication: N/A - Med Ordered
--- NOTE | 2023-03-26 13:20 | MHC.CM.PN ---
PER REVIEW OF P.T. EVAPOORVA, REFERRAL PLACED TO [facility]. CASE MANAGEMENT FOLLOWING
[2023-03-26] MEDS: cefTRIAXone sodium 1 GM in 0.9 % Sodium Chloride 50 ML IV (14:34)
[2023-03-26] MEDS: Azithromycin 500 MG in 0.9 % Sodium Chloride 250 ML 125 MG IV (16:11)
[2023-03-26 16:16] LABS: Glucose, Whole Blood 143 mg/dL (60-115)
[2023-03-26 20:02] LABS: Glucose, Whole Blood 173 mg/dL (60-115)
[2023-03-26] MEDS: Atorvastatin Calcium 40 MG TABLET PO (20:56)
[2023-03-26] MEDS: Docusate Sodium 100 MG CAPSULE PO (20:57)
[2023-03-26] MEDS: Insulin Glargine,Hum.rec.anlog 100 UNIT/ML 10 ML VIAL 14 UNIT SUBCUT (20:58)
[2023-03-27 03:59] VITALS: BP 140/67; PULSE 60; RESP 16; TEMP 36.2; O2SAT 95
[2023-03-27 05:39] VITALS: BMI 34.7
[2023-03-27 07:37] VITALS: BP 133/60; PULSE 72; RESP 18; TEMP 36.3; O2SAT 94
[2023-03-27 07:43] LABS: Glucose, Whole Blood 110 mg/dL (60-115)
--- NOTE | 2023-03-27 09:41 | PM.DS ---
DS: Providers Provider Date of Service: 03/27/23 Date of admission: 03/21/23 16:54 Primary care physician: Merry Gibson MD Consults: 03/21/23 16:54 Consult to Cardiology Routine Consulting Provider: [facility] Cardiovascular Services Reason for consultation: CHF Has provider been notified: No DS: Diagnosis Discharge Diagnosis (1) NSTEMI (non-ST elevated myocardial infarction): Status: Acute (2) Paroxysmal atrial fibrillation: Status: Acute (3) Decompensated heart failure: Status: Acute (4) Pneumonia: Status: Acute DS: Summary Hospital Course Hospital Course: HP as per admitting provider 77 year old women presenting with pleuritic chest pain worse with? cough and taking deep breaths.? over the last 3 days she has had a dry cough, chills and chest pain that been pretty consistent with any aggravating factors like coughing or deep breathing.? She also reported some fatigue.? She denied any nausea, vomiting, diarrhea, sick contacts, recent travel, recent illness, trauma, fever. ? She went to see her primary care provider yesterday and went to the urgent care clinic was started on antibiotics however she continued to feel unwell with decrease in appetite and Nonbloody watery stools.? She became short of breath and her family decided to call an ambulance today.? In the ER, chest x-ray was showing patchy opacities in the right mid and lower lung lara possibly suggestive of infectious versus inflammatory process.? Her BNP was also noted to be elevated at 468 however she was not noted to have any lower extremity edema or JVD noted.? She did not have a white count but did have a fever of 100.5 with tachycardia and tachypnea.? She received a dose of Rocephin, azithromycin, IV Lasix.? She will be admitted for further management and treatment of acute CHF and community-acquired pneumonia . Sepsis secondary to CAP. Sepsis resolved. Chest CT showing multifocal pneumonia, no dysphagia or signs of aspiration noted by speech therapy. Initially treated with Rocephin and azithromycin, completed treatment. Blood cultures negative to date. Oxygen weaned down to 0. NSTEMI. Likely secondary to acute illness along with probable chronic coronary artery disease. Elevated troponin peaked around 400 then trended down. No chest pain. EKG did show deep T-wave inversions in inferior lateral and anterior lateral leads. Echocardiogram showed no wall motion abnormalities. She was treated with beta-blockers, aspirin and statin nitro paste changed to mTOR and Jardiance added. Plan is for outpatient ischemic workup. Acute heart failure with preserved ejection fraction with no history in the past. Echocardiogram showed preserved ejection fraction. BNP trended down. Patient was treated with IV Lasix transition to oral Lasix and to continue 20 mg daily at home. Follow daily weights. Paroxysmal atrial fibrillation. Initial episode of atrial fibrillation on 03/22/2023, converted back to sinus. Initially on Lovenox and transition to Eliquis. Continue metoprolol. Plan for outpatient Holter monitor pulmonary nodule. 1.1 cm nodule noted. Follow-up with primary care provider for further workup Diabetes mellitus type 2. Continue home medications Hyperlipidemia. Statin Hypertension. Continue losartan, hydrochlorothiazide stopped Time Spent with Patient Time attestation: Total time managing care of this patient today ____ minutes. Discharge coordination time: Greater than 30 minutes Quality: Safe Use of Opioids Does Pt have an Active Cancer Diagnosis on the Problem List?: No Quality: Stroke Does the patient have a stroke diagnosis?: No Physical Exam Vital Signs: Vital Signs: Last Vital Signs Temp 97.3 F 03/27/23 07:37 Pulse 72 03/27/23 07:37 Resp 18 03/27/23 07:37 BP 133/60 03/27/23 07:37 Pulse Ox 94 03/27/23 07:37 O2 Del Method Room Air 03/27/23 07:37 O2 Flow Rate 2 03/26/23 15:24 BMI result Body Mass Index 34.7 Appearing in no acute distress head is normocephalic atraumatic eyes pupils are PERRLA sclera is anicteric mouth throat mucous membranes are intact and moist neck is supple no lymphadenopathy, no JVD noted lung sounds are clear to auscultation heart regular rate rhythm, clear S1, S2 positive bowel sounds, abdomen is soft, nontender neuro patient is alert x3, no focal deficits DS: Data Data Completed and Pending Labs on day of discharge: Laboratory Results - last 24 hr 03/26/23 03/26/23 03/26/23 11:06 16:11 19:55 POC Glucose 158 H 143 H 173 H 03/27/23 07:36 POC Glucose 110 Discharge Plan Discharge Anticipated Discharge Date/Time: 03/27/23 09:32 Patient Disposition: Home, Self-Care Discharge Diagnosis: Sepsis CAP NSTEMI Acute HFpEF Atrial fibrillation Referrals: Po,Merry Benoit MD [Primary Care Provider] - 1 Week Discharge Medications: New Eliquis 5 mg Tablet 5 mg PO BID Qty: 60 0RF isosorbide mononitrate 30 mg Tablet Extended Release 24 Hr 30 mg PO BID Qty: 60 0RF Protocol: Hold for SBP< HOLD for SBP < : 90 metoprolol tartrate 25 mg Tablet 25 mg PO BID Qty: 60 0RF Protocol: Hold for SBP/HR < HOLD for SBP < : 90 HOLD for HR < : 60 Jardiance 10 mg Tablet 10 mg PO DAILY Qty: 30 0RF furosemide [Lasix] 20 mg tablet 20 mg PO DAILY Qty: 30 0RF Continued (DME) Diabetic shoes See Rx Instructions .Route .MEDSUPPLY Qty: 1 0RF Rx Instructions: As directed (DME) PAD LINERS See Rx Instructions .Route .MEDSUPPLY Qty: 100 11RF Rx Instructions: As directed cholecalciferol (vitamin D3) 50 mcg (2,000 unit) tablet 50 mcg PO DAILY Qty: 90 3RF aspirin 81 mg tablet,delayed release (DR/EC) 81 mg PO DAILY Qty: 90 3RF simvastatin 20 mg tablet 20 mg PO BEDTIME Qty: 90 2RF (DME) lancets [TRUEplus Lancets] 33 gauge misc See Rx Instructions .ROUTE .MEDSUPPLY Qty: 100 8RF Rx Instructions: Three times a day (DME) FreeStyle Lite Strips Strip See Rx Instructions .ROUTE .MEDSUPPLY Qty: 3 3RF Rx Instructions: As directed check the blood sugar 3 times a day losartan 100 mg tablet 100 mg PO DAILY Qty: 90 3RF (DME) pen needle, diabetic [BD Ultra-Fine Mini Pen Needle] 31 gauge x 3/16 needle See Rx Instructions .Route Qty: 100 3RF Rx Instructions: As directed injection once a day Levemir FlexTouch U-100 Insuln 100 unit/mL (3 mL) insulin pen 20 unit subcut BEDTIME Rx Instructions: or as directed dulaglutide 3 mg/0.5 mL pen injector 3 mg subcut MO (DME) T.E.D. Knee [id number] Misc See Rx Instructions .Route Qty: 2 0RF Rx Instructions: As directed (DME) FreeStyle Rickey 2 Sensor Kit See Rx Instructions .ROUTE .MEDSUPPLY Qty: 6 0RF Rx Instructions: As directed (DME) FreeStyle Rickey 2 [place] Misc See Rx Instructions .ROUTE .MEDSUPPLY Qty: 1 0RF Rx Instructions: As directed (DME) DIABETIC SHOE See Rx Instructions .Route .MEDSUPPLY Qty: 1 0RF Rx Instructions: As directed benzonatate 100 mg capsule 100 mg PO TID PRN (Reason: cough) Qty: 20 0RF Discontinued hydrochlorothiazide 25 mg tablet 25 mg PO DAILY Qty: 90 1RF azithromycin [Zithromax Z-Matthew] 250 mg tablet 250 mg PO DAILY Discharge Orders: Discharge Order (Routine); Ordered 03/27/23 Ordered By: Pao Andrade Diet: Advance to usual diet Activity on Discharge: As tolerated Stand Alone Forms: Patient Portal Discharge page Care Plan Goals: Complete resolution of symptoms Health Concerns: Sepsis CAP NSTEMI Acute HFpEF Atrial fibrillation Plan of Treatment: Follow up with applications development analyst for outpatient stress tests and holter monitor Take all medications as prescribed You have been started ion several new medications including: Eliquis for atrial fibrillation Metoprolol and isosorbide for antianginal symptoms and NSTEMI Lasix and Jardiance for heart failure Follow up with primary care provider as needed Assessment: See discharge summary
[2023-03-27] MEDS: Losartan Potassium 50 MG TABLET 100 MG PO (09:48)
[2023-03-27] MEDS: Metoprolol Tartrate 25 MG TABLET PO (09:48)
[2023-03-27] MEDS: guaiFENesin LA 600 MG TAB.ER.12H PO (09:48)
[2023-03-27] MEDS: Cholecalciferol (Vitamin D3) 25 MCG TABLET 50 MCG PO (09:48)
[2023-03-27] MEDS: Aspirin Enteric Coated 81 MG TABLET.DR PO (09:48)
[2023-03-27] MEDS: Furosemide 40 MG TABLET PO (09:48)
[2023-03-27] MEDS: Empagliflozin 10 MG TABLET PO (09:49)
[2023-03-27] MEDS: Isosorbide Mononitrate 30 MG TAB.ER.24H PO (09:49)
[2023-03-27] MEDS: Apixaban 5 MG TABLET PO (09:49)
[2023-03-27] MEDS: polyethylene glycoL 3350 17 GM POWD.PACK PO (09:49)
[2023-03-27] MEDS: 0.9 % Sodium Chloride Flush 3 ML SYRINGE IVFLUSH (09:59)
[2023-03-27 11:28] LABS: Glucose, Whole Blood 145 mg/dL (60-115)
[2023-03-27] MEDS: levalbuterol HCL 1.25 MG/3 ML VIAL.NEB INHALE (11:52)
[2023-03-27 11:53] VITALS: PULSE 75; RESP 16; O2SAT 98
--- NOTE | 2023-03-27 11:56 | P.F2F_ITS ---
Service Date Service Date: 03/27/23 Encounter Date of encounter: 03/27/23 Reasons for Services Signs and symptoms assessed: Weakness, CAP Reason for penitentiary: CV/CP assess and/or care Reason for physical therapy: home safety and mobility Homebound: Leaving the home is medically contraindicated at this time without the asist of a device and/or another person due th the listed conditions above and below. Reason homebound: unsteady gait / fall risk Certification: Based on the above findings, I certify that this patient is confined to the home and needs intermittent penitentiary care, physical therapy and/or speech therapy, or continues to need occupational therapy. The patient is under my care, and I have initiated the establishment of the plan of care. The patient will be followed by a physician who will periodically review the plan of care. Time Spent With Patient Time: Total time managing care of this patient today ____ minutes.
--- NOTE | 2023-03-27 12:01 | MHC.CM.PN ---
HOME WITH [facility] SOC IS CURRENTLY 3-4 DAYS POST DISCHARGE. MD AWARE IMM 03/26 IN CHART
== END 2023-03-27 15:00 | disposition home health service (06) | DRG 871 ==
LOC: HO.ED 15:57 → HO.EDOVER 17:09 → HO.S3 22:10
PROVIDERS: Internal Medicine; Physician Assistant Medical; Admitting Provider Nurse Practitioner Acute Care; Emergency Provider Emergency Medicine Emergency Medical Services; PCP Internal Medicine; Visit Provider Nurse Practitioner Acute Care
DX: A41.9 Sepsis, unspecified organism (principal); I21.A1 Myocardial infarction type 2; I50.31 Acute diastolic (congestive) heart failure; J18.9 Pneumonia, unspecified organism; R91.1 Solitary pulmonary nodule; I11.0 Hypertensive heart disease with heart failure; E78.5 Hyperlipidemia, unspecified; E11.9 Type 2 diabetes mellitus without complications; I48.0 Paroxysmal atrial fibrillation; E66.9 Obesity, unspecified; Z68.35 Body mass index [BMI] 35.0-35.9, adult; Z20.822 Contact with and (suspected) exposure to COVID-19; Z79.4 Long term (current) use of insulin; Z79.82 Long term (current) use of aspirin; Z79.899 Other long term (current) drug therapy
CPT/HCPCS: 36415; 71046; 71250; 80048; 80053; 81001; 82947; 83605; 83690; 83735; 83880; 84484; 85025; 85027; 85610; 85730; 87040; 87086; 87635; 92610; 93005; 93306; 94640; 97162; 99285; J0456; J0696; J1650; J1940; J2405; J2920; Q9957

== ENCOUNTER 2023-04-11 14:37 | Outpatient (REF) | payer OTHER, SELFPAY ==
[2023-04-11 14:59] LABS: Appearance Urine Clear; Color Urine Yellow; Glucose Urine UA >=1000 mg/dL (Negative); Leukocyte Esterase Urine Moderate (2+) (Negative); Nitrite Urine Negative (Negative); PH 5.5 (5.0-9.0); UMIC TRIGGER UA YES; Urine Blood Negative (Negative); Urine Ketones Negative (Negative); Urine Protein Negative (Neg-Trace)
[2023-04-11 15:12] LABS: Bacteria Urine None Seen (None Seen); Hyaline Casts Urine 0-2 /LPF (0-2); WBC Urine 0-5 /HPF (0-5)
== END 2023-04-11 14:38 | disposition home or self-care (01) ==
LOC: HO.HVNA 14:37
PROVIDERS: Visit Provider Internal Medicine
DX: R30.0 Dysuria (principal)
CPT/HCPCS: 81001; 81003; 87086

== ENCOUNTER → 2023-04-19 07:09 | Outpatient (REF) | payer OTHER, SELFPAY ==
--- NOTE | ~2023-04-19 | NM_ITS ---
Myocardial perfusion study Indication: Paroxysmal atrial fibrillation to evaluate for myocardial ischemia Technique: The patient was brought in for a Lexiscan perfusion study on 04/19/2023. Patient performed low-level exercise and was injected 0.4 mg of Lexiscan intravenously. Within a minute of injection, 35 mCi of sestamibi was given intravenously. Images were obtained using the SPECT gamma camera interlaced with the gating device. Images were obtained in supine position. Resting perfusion study was performed on 04/20/2023. Patient was administered 25 mCi of sestamibi intravenously at rest. Images were then obtained in supine position. Images obtained with and without CT attenuation. Total DLP 121 mGy-cm. Images were processed with the software and compared side to side in short axis, horizontal long axis and vertical long axis views. Findings: The stress perfusion study showed non attenuated images show overall mildly reduced uptake in the basal septum of the LV myocardium. Attenuation corrected images show mildly reduced uptake in the apex and the inferoapical wall of the LV myocardium as well as distal septum.. The gated study shows normal LV systolic function with calculated LVEF of 53%. LV cavity is normal in size. The gated study shows normal systolic wall thickening and contraction of segments. Resting study shows both attenuated as well as non attenuated corrected images show normal uptake of radiotracer in all segments of LV myocardium. Gating at rest reveals normal systolic wall motion with ejection fraction at 52%. The findings are consistent with mild apical, inferoapical and distal septal ischemia. NM/NM jyothi perf SPECT rest & str Impression: 1. Myocardial perfusion imaging study shows mild intensity small area of apical, inferoapical and distal septal ischemia 2. Gated LVEF is 52% 3. Transient ischemic dilatation not present EKG is nondiagnostic for ischemia
--- NOTE | 2023-04-19 07:15 | HM_ITS ---
Conclusion: 1. Patient was monitored for total period of 3 days and 8 hours 2. Baseline was normal sinus rhythm with average heart rate of 73 beats per minute 3. No significant pauses or bradycardia noted 4. Frequent PVCs with total burden of 1.2% noted, mostly isolated 5. Occasional PACs noted 6. No patient reported events MTDD
--- NOTE | 2023-04-19 07:15 | CA_ITS ---
Acquisition Time: 2023-04-19 07:55:43 Total Exercise Time: 00:02:00 Test Indications: CHEST PAIN Medications: ELIQUIS ISOSORBIDE METOPROLOL ASA SIMVASTATIN DUAGLUTIDE BENZOATATE Protocol: LEXISCAN Max HR: 114 BPM 78% of Pred: 145 BPM Max BP: 130/068 mmHG Max Work Load: 1.0 METS Pharmacological stress test with Lexiscan injection while sitting and kicking her legs, without anginal symptoms, without arrhythmias, with normotensive response to injection, without EKG changes, Aminophylline 75mg IVP given to reverse Lexiscan. Nuclear images pending, Test revieed with Dr. Whitt. Referred By: Steven Whitt Overread By: CHANDA PALACIOS
[2023-04-19 07:24] LABS: MANUAL DIFF FLAG NO
[2023-04-19 07:35] LABS: Basophils Percent Auto 0.6 % (0-2); Eosinophils Absolute Auto 0.2 X10*3/uL (0.0-0.4); Eosinophils Percent Auto 3.6 % (0-4); Hematocrit 35.4 % (37.0-47.0); Hemoglobin 11.1 g/dl (12.0-16.0); Imm Gran Abs Auto 0.01 X10*3/uL (0.00-0.03); Imm Gran Pct Auto 0.2 % (0.0-0.4); Immature Retic Fraction 14.7 % (3.0-15.9); Lymphocytes Absolute Auto 1.4 X10*3/uL (1.2-4.9); Lymphocytes Percent Auto 28.7 % (20-40); Mean Corpuscular HGB Conc 31.4 g/dl (31.0-35.0); Mean Corpuscular Hemoglobin 28.5 pg (27.0-33.0); Mean Corpuscular Volume 90.8 fL (80.0-98.0); Mean Platelet Volume 11.6 fL (9.4-12.3); Monocytes Absolute Auto 0.6 X10*3/uL (0.1-1.2); Monocytes Percent Auto 12.4 % (2-11); Neutrophils Absolute Auto 2.7 x10*3/uL (2.0-8.3); Neutrophils Percent Auto 54.5 % (45-73); Platelet Count 197 X10*3/uL (160-400); Red Cell Distribution Width 14.6 % (11.0-16.0); Retic HGB Equivalent 33.7 pg (30.0-35.0); Reticulocyte Percent 2.1 % (0.5-1.8); Reticulocytes Absolute 0.083 X10*6/uL (0.026-0.095)
[2023-04-19 07:43] LABS: Estimated Average Glucose 134 mg/dL; Hemoglobin A1c % 6.3 %
[2023-04-19 08:27] LABS: Appearance Urine Clear; Color Urine Yellow; Glucose Urine UA >=1000 mg/dL (Negative); Leukocyte Esterase Urine Trace (Negative); Nitrite Urine Negative (Negative); UMIC TRIGGER UACC YES; Urine Blood Negative (Negative); Urine Ketones Negative (Negative); Urine Protein 30 (1+) mg/dL (Neg-Trace)
[2023-04-19 08:37] LABS: Bacteria Urine None Seen (None Seen); RBC Urine 0-2 /HPF (0-2); Squamous Epithelial Cell Urine >20 /HPF (0-2); WBC Urine 0-5 /HPF (0-5)
[2023-04-19 08:52] LABS: Alanine Aminotransferase 17 U/L (0-31); Alkaline Phosphatase 62 U/L (39-117); Anion Gap 13 (12-20); Aspartate Amino Transferase 20 U/L (5-31); Bilirubin Total 0.6 mg/dL (0.0-1.0); Blood Urea Nitrogen 17 mg/dL (9-16); Calcium 10.5 mg/dL (8.4-10.2); Carbon Dioxide 27 mmol/L (22-29); Chloride 103 mmol/L (96-108); Estimated Glomerular Filt Rate > 60; Glucose Random 126 mg/dL (60-115); Iron 44 mcg/dL (30-160); Percent Iron Saturation 17 % (15-50); Potassium 4.4 mmol/L (3.3-5.1); Sodium 139 mmol/L (135-145); Total Iron Binding Capacity 259 mcg/dL (228-428); Total Protein 7.1 g/dL (6.5-8.0); Unsaturated Iron Binding 215 ug/dL
[2023-04-19 08:59] LABS: Microalbum/Creatinine Ratio Ur 58.4 ug/mg cr
[2023-04-19 09:21] LABS: Ferritin 37 ng/mL (10-250); Folate 10.1 ng/mL (> or = 4.0); Free T4 (Free Thyroxine) 1.07 ng/dL (0.71-1.85); Thyroid Stimulating Hormone 2.42 uIU/mL (0.32-4.0); Vitamin B12 341 pg/mL (200-900); Vitamin D 25-OH Total 59.4 ng/mL (>30)
== END ==
LOC: HO.CARD 07:09
PROVIDERS: Absent Provider Internal Medicine; PCP Internal Medicine; Visit Provider Internal Medicine Cardiovascular Disease
DX: I21.4 Non-ST elevation (NSTEMI) myocardial infarction (principal); I11.0 Hypertensive heart disease with heart failure; I50.9 Heart failure, unspecified; I48.0 Paroxysmal atrial fibrillation; I10 Essential (primary) hypertension; E11.65 Type 2 diabetes mellitus with hyperglycemia; M81.0 Age-related osteoporosis without current pathological fracture; Z79.4 Long term (current) use of insulin
CPT/HCPCS: 36415; 78452; 80053; 81001; 82043; 82306; 82607; 82728; 82746; 83036; 83540; 84439; 84443; 85025; 85045; 93017; 93242; A9500; J0280; J2785

== ENCOUNTER → 2023-05-17 15:10 | Outpatient (BNVA) | payer OTHER, SELFPAY | PROVIDERS: PCP Internal Medicine; Referring Provider Internal Medicine; Visit Provider Nurse Practitioner Family | DX: R06.00 Dyspnea, unspecified (principal); J18.9 Pneumonia, unspecified organism; I21.4 Non-ST elevation (NSTEMI) myocardial infarction; I48.0 Paroxysmal atrial fibrillation; I50.9 Heart failure, unspecified; I11.0 Hypertensive heart disease with heart failure; E11.65 Type 2 diabetes mellitus with hyperglycemia; Z79.82 Long term (current) use of aspirin; Z79.4 Long term (current) use of insulin; Z79.899 Other long term (current) drug therapy; Z09 Encounter for follow-up examination after completed treatment for conditions other than malignant neoplasm | CPT/HCPCS: 99212 ==

== ENCOUNTER 2023-06-01 09:45 | Outpatient (AMB) | payer OTHER, SELFPAY ==
[2023-06-01 09:54] VITALS: BP 136/68; PULSE 40; O2SAT 96; BMI 34.3
--- NOTE | 2023-06-01 09:54 | MHC.PC.OV ---
Vital Signs 06/01/23 09:54 06/01/23 10:28 Height 5 ft 5 in Weight 206 lb BMI 34.3 BP 136/68 Blood Pressure Location Lt brachial Position Sitting Pulse 40 L 56 Pulse Source Pulse Oximeter Auscultation Pulse Oximetry (%) 96 Oxygen Delivery Method Room Air Intake Visit Reasons: Diabetes mellitus, cognitive impairment Allergies No Known Allergies Allergy (Verified 06/01/23 09:55) Medication List - Last Reconciled 06/01/23 by Merry Gibson MD apixaban (Eliquis) 5 mg PO BID aspirin (Adult Aspirin Regimen) 81 mg PO DAILY benzonatate 100 mg PO TID PRN blood sugar diagnostic (FreeStyle Lite Strips) As directed check the blood sugar 3 times a day cholecalciferol (vitamin D3) 50 mcg PO DAILY compr.stocking,knee,long,small (T.E.D. Knee Orzodb-Z-Ensm misc) As directed [DIABETIC SHOE As directed] dulaglutide 3 mg subcut MO empagliflozin (Jardiance) 10 mg PO DAILY flash glucose scanning reader (TumblrStyle Rickey 2 [place]) As directed flash glucose sensor (FreeStyle Rickey 2 Sensor kit) As directed furosemide 20 mg PO DAILY insulin detemir U-100 (Levemir FlexTouch U-100 Insulin) 20 units subcut BEDTIME isosorbide mononitrate ER 30 mg PO BID lancets (TRUEplus Lancets) Three times a day losartan 100 mg PO DAILY metoprolol tartrate 25 mg PO BID miconazole nitrate (Monistat 7) 1 pkg vaginal .QD [PAD LINERS As directed] pen needle, diabetic (BD Ultra-Fine Mini Pen Needle) As directed injection once a day simvastatin 20 mg PO BEDTIME Tobacco use date assessed: 12/05/22 Fall risk assessment: No Falls in past year Last assessed Fall Risk: 06/01/23 Dental Screening Dental Screen Date: 06/01/23 Did you have a dental visit in the last 12 months?: No Did you have a dental problem in the last 6 months where you did not have access to dental care?: No Was dental information given to patient?: No HPI Diabetes mellitus, cognitive impairment HPI Details Vxgpcul-chsl-fczl-old obese female with diabetes mellitus hypertension hypercholesterolemia cognitive impairment with low back pain in knee pain coming in for follow-up patient was last seen in February 2023 her colonoscopy is up-to-date mammograms up-to-date and bone densities up-to-date. April 2023 had myocardial perfusion showing small area of apical inferior apical and distal septal ischemia ejection fraction 52% this is done from the admission in March 2023 having had chest pain diagnosis of congestive heart failure and pneumonia. Patient had an initial episode of atrial fibrillation 03/22/2023 which converted back to sinus. PAtient is having HR 55-[address] angio [facility] Medical History Anemia Breast cancer screening by mammogram Breast nodule Constipation Decompensated heart failure Dysuria Elevated cholesterol HTN (hypertension) Hyperlipidemia Myocardial injury Obesity (BMI 30-39.9) Osteopenia Pain and swelling of lower extremity Paroxysmal atrial fibrillation TIA (transient ischemic attack) Type 2 diabetes mellitus with hyperglycemia Vitamin D deficiency Yeast infection involving the vagina and surrounding area Surgical History History of appendectomy History of cyst of breast Status post right knee replacement Family History Father Diabetes Hypertension Mother No problems noted. Paternal Aunt Colon cancer Social History Housing: Apartment Unable to assess alcohol history related to: Unable to respond Alcohol intake: never Patient Tobacco Use Status: Never used Tobacco e-Cigarette/Vaping Use: Never Used Second Hand Smoke Exposure: No service: No Current occupational status: retired Cognitive needs: No Hearing needs: No Vision needs: Yes Questionnaire PHQ-9 Over the last 2 weeks, how often have you been bothered by any of the following problems? 1. Little interest or pleasure in doing things: not at all 2. Feeling down, depressed, or hopeless: not at all 3. Trouble falling or staying asleep, or sleeping too much: not at all 4. Feeling tired or having little energy: not at all 5. Poor appetite or overeating: not at all 6. Feeling bad about yourself - or that you are a failure or have let yourself or your family down: not at all 7. Trouble concentrating on things, such as reading the newspaper or watching television: not at all 8. Moving or speaking so slowly that other people could have noticed. Or the opposite - being so fidgety or restless that you have been moving around a lot more than usual: not at all 9. Thoughts that you would be better off or of hurting yourself in some way: not at all Total score: 0 Depression Screening Interpretation: Negative Source: Developed by Drs. Pramod Mi, Colleen Norris, Noah Anderson and colleagues, with an educational salome from [employer]. Thrive Questionnaire Date Thrive assessed: 12/05/22 AUDIT C Alcohol Use Questionnaire (AUDIT-C) 1. How often do you have a drink containing alcohol?: Never 3. How often do you have six or more drinks on one occasion?: Never Total Score: 0 ROSEMARIE-7 AMB Questionnaire ROSEMARIE-7 Date ROSEMARIE - 7 assessed: 12/05/22 Source: Developed by Drs. Pramod Mi, Colleen Norris, Noah Anderson and colleagues, with an educational salome from [employer]. Physical exam (Primary Care) Vital Signs: Last Vital Signs Pulse 40 L 06/01/23 09:54 BP 136/68 06/01/23 09:54 Pulse Ox 96 06/01/23 09:54 Oxygen Delivery Method Room Air 06/01/23 09:54 BMI result Body Mass Index 34.3 Tobacco/Smoking Status: Tobacco use Status Tobacco use date assessed 12/05/22 06/01/23 09:55 Patient Tobacco Use Status Never used Tobacco 06/01/23 09:55 e-Cigarette/Vaping Use Never Used 06/01/23 09:55 PHQ-9: PHQ-9 Score PHQ-9: Total score 0 06/01/23 09:55 Depression Screening Interpretation: Negative Thrive Assessment: Date of Thrive Assessment Date Thrive assessed 12/05/22 06/01/23 09:55 Const General: alert; No acute distress Eyes Conjunctivae: conjunctivae normal Resp Auscultation: clear to auscultation bilaterally Cardio Other: irregularly irregular GI Inspection: Yes normal to inspection Extrem General: Yes normal to inspection and No edema Assessment and Plan Assessment & Plan (1) Paroxysmal atrial fibrillation: Code(s): I48.0 - Paroxysmal atrial fibrillation Plan: Continue with anticoagulation (2) Type 2 diabetes mellitus with hyperglycemia: Comment: Dr. Galo Code(s): E11.65 - Type 2 diabetes mellitus with hyperglycemia Qualifiers: Diabetes mellitus prison insulin use: with supervisor intermediates use Qualified Code(s): E11.65 - Type 2 diabetes mellitus with hyperglycemia; Z79.4 - continuous churn buttermaker (current) use of insulin Plan: Decrease the amount of carbohydrate intake, pasta, bread, rice and potatoes are all sugar and that is aside from all the sweet stuff, remember that fruits are good but they are Sweet also. Hemoglobin A1c goal of less than 7.0 (3) HTN (hypertension): Code(s): I10 - Essential (primary) hypertension Qualifiers: Hypertension type: essential hypertension Qualified Code(s): I10 - Essential (primary) hypertension Plan: Continue with blood pressure medication. Decrease salt intake and exercise patient is taking losartan 100 mg once a day and metoprolol 25 mg twice a day but concern about bradycardia (4) Elevated cholesterol: Code(s): E78.00 - Pure hypercholesterolemia, unspecified Plan: Avoid fried foods, chicken skin, eggs, butter margarine, pastries and meat. Be it pork or beef they have a lot of cholesterol LDL goal of less than 70 and triglyceride of less than 150 last blood work was in 2021 (5) Obesity (BMI 30-39.9): Code(s): E66.9 - Obesity, unspecified Plan: Diet and exercise (6) CHF (congestive heart failure): Code(s): I50.9 - Heart failure, unspecified Plan: Continue with diuretic Orders: Orders Vitamin B12 and Folate 2 Months I48.0 - Paroxysmal atrial fibrillation B Type Natriuretic Peptide 2 Months I50.9 - Heart failure, unspecified Comprehensive Met. Panel 2 Months I48.0 - Paroxysmal atrial fibrillation Ferritin 2 Months I48.0 - Paroxysmal atrial fibrillation IRON PROFILE 2 Months I48.0 - Paroxysmal atrial fibrillation Lipid Panel 2 Months E78.00 - Pure hypercholesterolemia, unspecified, I48.0 - Paroxysmal atrial fibrillation Free T4 (Free Thyroxine) 2 Months I48.0 - Paroxysmal atrial fibrillation Thyroid Stimulating Hormone 2 Months I48.0 - Paroxysmal atrial fibrillation Creatinine Urine 2 Months E11.65 - Type 2 diabetes mellitus with hyperglycemia, I48.0 - Paroxysmal atrial fibrillation Microalbumin, Random (w Creat) 2 Months E11.65 - Type 2 diabetes mellitus with hyperglycemia, I48.0 - Paroxysmal atrial fibrillation Complete Blood Count Auto Diff 2 Months I48.0 - Paroxysmal atrial fibrillation Reticulocyte Count 2 Months I48.0 - Paroxysmal atrial fibrillation Magnesium 2 Months I48.0 - Paroxysmal atrial fibrillation Phosphorus 2 Months I48.0 - Paroxysmal atrial fibrillation Medications: Discontinued dulaglutide 3 mg (0.5 mL) subcut QWEEK 90 days 6.5 mL 2RF E11.65 - Type 2 diabetes mellitus with hyperglycemia azithromycin For 250 mg dose pack: take 500 mg today (day 1), then 250 mg for 4 days (days 2-5) PO 6 tabs 0RF insulin detemir U-100 or as directed 40 units (0.4 mL) subcut BEDTIME 12 mL 3RF E11.65 - Type 2 diabetes mellitus with hyperglycemia Coding Level of Care Code Est Pt Level 4 (92331) Diagnoses Paroxysmal atrial fibrillation I48.0 Type 2 diabetes mellitus with hyperglycemia E11.65; Z79.4 Diabetes mellitus prison insulin use: with prison use HTN (hypertension) I10 Hypertension type: essential hypertension Elevated cholesterol E78.00 Obesity (BMI 30-39.9) E66.9 CHF (congestive heart failure) I50.9 Additional Codes PHQ-9 - 39993 - PHQ-9 Billing: Y ([id number])
[2023-06-01 10:28] VITALS: PULSE 56
== END 2023-06-01 11:05 | disposition home or self-care (01) ==
PROVIDERS: Visit Provider Internal Medicine
DX: I10 Essential (primary) hypertension (principal); Z68.34 Body mass index [BMI] 34.0-34.9, adult; Z79.4 Long term (current) use of insulin; E66.9 Obesity, unspecified; E11.65 Type 2 diabetes mellitus with hyperglycemia; I48.0 Paroxysmal atrial fibrillation; E78.00 Pure hypercholesterolemia, unspecified; I50.9 Heart failure, unspecified
CPT/HCPCS: 99214

== ENCOUNTER 2023-06-06 08:54 | Outpatient (REF) | payer OTHER, SELFPAY ==
[2023-06-06 10:11] LABS: Anion Gap 11 (12-20); Blood Urea Nitrogen 22 mg/dL (9-16); Calcium 10.1 mg/dL (8.4-10.2); Carbon Dioxide 26 mmol/L (22-29); Chloride 107 mmol/L (96-108); Estimated Glomerular Filt Rate > 60; Glucose Random 119 mg/dL (60-115); Potassium 3.6 mmol/L (3.3-5.1); Sodium 140 mmol/L (135-145)
== END 2023-06-06 08:55 | disposition home or self-care (01) ==
LOC: HO.LAB 08:54
PROVIDERS: PCP Internal Medicine; Visit Provider Internal Medicine Cardiovascular Disease
DX: I48.0 Paroxysmal atrial fibrillation (principal); I50.9 Heart failure, unspecified; R94.39 Abnormal result of other cardiovascular function study; E11.65 Type 2 diabetes mellitus with hyperglycemia; R32 Unspecified urinary incontinence; Z79.4 Long term (current) use of insulin
CPT/HCPCS: 36415; 80048

== ENCOUNTER 2023-06-10 22:00 | Inpatient (IN) | payer OTHER, SELFPAY ==
--- NOTE | ~2023-06-10 | XR_ITS ---
EXAMINATION: XR CHEST CLINICAL INFORMATION: Fever and cough COMPARISON: 03/21/2023 TECHNIQUE: Frontal view of the chest was obtained. FINDINGS: Lung volumes are symmetric. There is a coarsened appearance of the interstitium bilaterally. Possible mild patchy left basilar opacity. No evidence of pneumothorax or pleural effusion. Cardiac silhouette is prominent. Calcification is present at the aortic arch. No acute osseous findings are seen. XR/XR chest 1V IMPRESSION: Possible mild patchy left basilar opacity which could represent early developing consolidation. Coarsened appearance of the interstitium may reflect acute or chronic airways disease.
--- NOTE | ~2023-06-10 | CT_ITS ---
EXAMINATION: CT ABDOMEN AND PELVIS WITHOUT CONTRAST CLINICAL INFORMATION: Abdominal pain, fever COMPARISON: None available. TECHNIQUE: Multidetector volumetric imaging was performed from the superior aspect of the liver through the pubic symphysis. Sagittal and coronal reformatted images were obtained on the technologist's workstation. This CT examination was performed using dose optimization techniques as appropriate, variously including the following: *Automated exposure control *Adjustment of mA and/or kV according to patient size (this includes techniques or standardized protocols for targeted exams where dose is matched to indication/reason for exam; i.e. extremities or head) *Use of iterative reconstruction technique DLP: 754 mGy-cm FINDINGS: LUNG BASES: The visualized lung bases are unremarkable. LIVER, GALLBLADDER, AND BILIARY TREE: The liver is normal in size, shape, and attenuation. No focal hepatic lesion or biliary ductal dilatation is identified on this noncontrast exam. The gallbladder is unremarkable. PANCREAS: Mildly atrophic. SPLEEN: Unremarkable. ADRENAL GLANDS: Unremarkable. KIDNEYS AND URETERS: No hydronephrosis or obstructing calculus bilaterally. Bilateral perinephric stranding. BLADDER: Partially distended with mild mural prominence. Tiny focus of gas is noted anteriorly. GASTROINTESTINAL TRACT: There is a mildly dilated fluid-filled small bowel loop in the pelvis, of uncertain clinical significance as the remainder of the bowel gas pattern is unremarkable. Colonic diverticulosis is noted. No significant bowel wall thickening is seen. No free fluid or free air is seen. ABDOMINAL WALL: No significant hernia is appreciated. LYMPH NODES: Normal. VASCULAR: There is atherosclerotic calcification along the aorta. PELVIC VISCERA: Status post hysterectomy. OSSEOUS STRUCTURES: Degenerative changes are noted in the spine. CT/CT abdomen pelvis wo IV con IMPRESSION: 1. Mildly dilated fluid-filled small bowel loop in the pelvis, of uncertain clinical significance as the remainder of the bowel gas pattern is unremarkable. In the proper clinical setting, an early developing small bowel obstruction would be difficult to entirely exclude. 2. Tiny focus of gas in the urinary bladder. In the proper clinical setting, this could reflect sequelae of recent catheterization though cystitis could potentially result in a similar appearance.
[2023-06-10 22:28] VITALS: BP 165/82; PULSE 106; RESP 20; TEMP 38.8; O2SAT 94; BMI 36.0
[2023-06-10 22:53] LABS: Basophils Percent Auto 0.3 % (0-2); Hematocrit 33.6 % (37.0-47.0); Imm Gran Abs Auto 0.03 X10*3/uL (0.00-0.03); Imm Gran Pct Auto 0.3 % (0.0-0.4); Lymphocytes Absolute Auto 0.5 X10*3/uL (1.2-4.9); Lymphocytes Percent Auto 5.4 % (20-40); MANUAL DIFF FLAG NO; Mean Corpuscular HGB Conc 32.7 g/dl (31.0-35.0); Mean Corpuscular Hemoglobin 28.4 pg (27.0-33.0); Mean Corpuscular Volume 86.6 fL (80.0-98.0); Mean Platelet Volume 11.7 fL (9.4-12.3); Monocytes Absolute Auto 0.9 X10*3/uL (0.1-1.2); Monocytes Percent Auto 9.1 % (2-11); Neutrophils Absolute Auto 8.2 x10*3/uL (2.0-8.3); Neutrophils Percent Auto 84.9 % (45-73); Platelet Count 178 X10*3/uL (160-400); Red Blood Count 3.88 X10*6/uL (4.20-5.50); Red Cell Distribution Width 14.3 % (11.0-16.0); White Blood Count 9.7 X10*3/uL (4.8-10.8)
[2023-06-10 23:05] LABS: Lactic Acid 1.3 mmol/L (0.5-2.0)
[2023-06-10 23:10] LABS: Alanine Aminotransferase 13 U/L (0-31); Albumin Level 4.1 g/dL (3.5-5.0); Alkaline Phosphatase 61 U/L (39-117); Anion Gap 14 (12-20); Aspartate Amino Transferase 18 U/L (5-31); Bilirubin Total 0.6 mg/dL (0.0-1.0); Blood Urea Nitrogen 18 mg/dL (9-16); Calcium 10.3 mg/dL (8.4-10.2); Carbon Dioxide 23 mmol/L (22-29); Chloride 105 mmol/L (96-108); Creatinine Clr Calc Pharmacy 57.5; Estimated Glomerular Filt Rate > 60; Glucose Random 215 mg/dL (60-115); Potassium 3.5 mmol/L (3.3-5.1); Sodium 138 mmol/L (135-145); Total Protein 7.7 g/dL (6.5-8.0)
--- NOTE | 2023-06-11 00:44 | ECG_ITS ---
Test Reason : ABD PAIN Blood Pressure : / mmHG Vent. Rate : 089 BPM Atrial Rate : 089 BPM P-R Int : 188 ms QRS Dur : 152 ms QT Int : 454 ms P-R-T Axes : 050 -56 072 degrees QTc Int : 552 ms Sinus rhythm with frequent Premature ventricular complexes Right bundle branch block Left anterior fascicular block Bifascicular block Left ventricular hypertrophy with repolarization abnormality ( R in aVL , Romhilt-Mo ) Abnormal ECG When compared with ECG of 23-MAR-2023 01:18, T wave inversion no longer evident in Inferior leads T wave inversion less evident in Anterolateral leads Referred By: Frederic Cotto Electronically Signed By:GIANFRANCO RINCON MD
--- NOTE | 2023-06-11 00:44 | ED.ABDPAIN ---
HPI - Abdominal Pain General Chief Complaint: Abdominal Pain Stated Complaint: vomiting, not feeling well Time Seen by Provider: 06/11/23 00:28 Source: patient and language interpreter Mode of arrival: ambulatory Limitations: no limitations History of Present Illness HPI narrative: 77-year-old female came in for evaluation of fever, upper abdominal pain, vomiting x1 day. Came in for evaluation of upper abdominal pain with persistent vomiting and fever since yesterday, no sick contact, no recent travel, no history of eating bad food. No diarrhea, no blood in the stool or in the vomit. No neck stiffness, no photophobia, no CP, no SOB, no coughing, no diarrhea. Had BM early today and passing flatus. Related Data Home Medications Medication Instructions Recorded Confirmed dulaglutide 3 mg/0.5 mL 3 mg subcut MO 03/21/23 06/11/23 subcutaneous pen injector insulin detemir U-100 100 unit/mL 20 unit subcut BEDTIME 03/21/23 06/11/23 (3 mL) subcutaneous pen (Levemir FlexTouch U-100 Insulin) aspirin 81 mg tablet,delayed 81 mg PO DAILY 05/17/23 06/11/23 release (Adult Aspirin Regimen) Previous Rx's Medication Instructions Recorded compr.stocking,knee,long,small #2 ea 11/25/21 (T.E.D. Knee [id number] [facility] [place]) PAD LINERS #100 ea 04/04/22 simvastatin 20 mg tablet 20 mg PO BEDTIME #90 tabs 10/07/22 blood sugar diagnostic (FreeStyle #3 ea 11/15/22 Lite Strips) lancets 33 gauge (TRUEplus Lancets) #100 ea 11/15/22 DIABETIC SHOE #1 ea 12/05/22 flash glucose scanning reader #1 ea 12/05/22 (FreeStyle Rickey 2 [place]) flash glucose sensor (FreeStyle #6 kits 12/05/22 Rickey 2 Sensor kit) losartan 100 mg tablet 100 mg PO DAILY #90 tabs 02/02/23 pen needle, diabetic 31 gauge x #100 ea 02/02/23 3/16 (BD Ultra-Fine Mini Pen Needle) benzonatate 100 mg capsule 100 mg PO TID PRN cough #20 caps 03/20/23 miconazole nitrate 2 % (100 mg)-2 1 pkg vaginal .QD #44 grams 04/06/23 %(9 gram) vaginal,prefill appl,cream (Monistat 7) cholecalciferol (vitamin D3) 50 50 mcg PO DAILY #90 tabs 04/12/23 mcg (2,000 unit) tablet apixaban 5 mg tablet (Eliquis) 5 mg PO BID #60 tabs 05/28/23 empagliflozin 10 mg tablet 10 mg PO DAILY #30 tabs 05/28/23 (Jardiance) furosemide 20 mg tablet 20 mg PO DAILY #30 tabs 05/28/23 isosorbide mononitrate 30 mg 30 mg PO BID #60 tabs 05/28/23 tablet,extended release 24 hr metoprolol tartrate 25 mg tablet 25 mg PO BID #60 tabs 05/28/23 Allergies Allergy/AdvReac Type Severity Reaction Status Date / Time No Known Allergies Allergy Verified 06/01/23 09:55 Review of Systems Review of Systems All other systems are reviewed and are negative Constitutional: Reports as per HPI and Reports no additional constitutional complaints Eyes: Reports as per HPI and Reports no additional eye complaints Reports system reviewed and no additional complaints, except as documented Cardiovascular: Reports as per HPI and Reports no additional cardiovascular complaints Respiratory: Reports as per HPI and Reports no additional respiratory complaints Gastrointestinal: Reports as per HPI and Reports no additional gastrointestinal complaints Genitourinary: Reports no additional female genitourinary complaints Musculoskeletal: Reports no additional musculoskeletal complaints Skin/Breast: Reports system reviewed and no additional complaints, except as docu Psychiatric: Reports no additional psychiatric complaints Endocrine: Reports no additional endocrine complaints Hematologic/Lymphatic: Reports no additional hematologic/lymphatic complaints Allergic/Immunologic: Reports no additional allergic/immunologic complaints Reports system reviewed and no additional complaints, except as documented and Reports Abnormal speech present [facility] Past Medical History Medical History Anemia Breast cancer screening by mammogram Breast nodule Constipation Decompensated heart failure Dysuria Elevated cholesterol HTN (hypertension) Hyperlipidemia Myocardial injury Obesity (BMI 30-39.9) Osteopenia Pain and swelling of lower extremity Paroxysmal atrial fibrillation TIA (transient ischemic attack) Type 2 diabetes mellitus with hyperglycemia Vitamin D deficiency Yeast infection involving the vagina and surrounding area Surgical History History of appendectomy History of cyst of breast Status post right knee replacement Family History Family History Father Diabetes Hypertension Mother No problems noted. Paternal Aunt Colon cancer Social History Social History Housing: Apartment Unable to assess alcohol history related to: Unable to respond Alcohol intake: never Patient Tobacco Use Status: Never used Tobacco Smoked in Last 30 Days: No e-Cigarette/Vaping Use: Never Used Second Hand Smoke Exposure: No Use of substances other than those prescribed or required for medical reasons: No Advance Directives: No Advance Directives Information Provided: Yes Nutrition Risks: No Nutritional Risk service: No Current occupational status: retired Cognitive needs: No Hearing needs: No Vision needs: Yes Physical Exam ED Vital Signs: Vital Signs - 24 hr 06/10/23 22:28 06/11/23 02:30 Temperature 102 F H 99.5 F Pulse Rate 106 H 78 Respiratory Rate 20 17 Blood Pressure 165/82 H 124/54 L Pulse Oximetry 94 94 Oxygen Delivery Method Room Air Room Air BMI result Body Mass Index 36.0 Vital signs have been reviewed as appeared to be correct. Blood pressure normal. Heart rate elevated. Respiration rate normal. Temperature elevated. Oxygen saturation normal. Appearance: Alert. Oriented X3. No acute distress. Head: Normal external exam. Normocephalic. Atraumatic. No Fierro signs noted. No raccoon eyes noted Eyes: PERRLA. EOMI. Conjunctiva and sclera normal. Eyelids normal. ENT: TM's Normal. Pharynx normal. Uvula midline. Moist mucous membranes. No trismus noted. No drooling noted. No muffled voice noted. Neck: Normal inspection. Neck supple. FROM. No adenopathy. Thyroid Normal. No meningeal signs. No neck mass noted. CVS: Normal heart rate and rhythm. Heart sound normal. No murmurs noted. Pulses normal throughout. Respiratory: No respiratory distress. Painless inspiration. Breath sounds normal. No wheezes/rales/rhonchi noted. Chest nontender. No accessory muscle usage noted or decreased air movement noted. Abdomen: Soft, mild upper abdominal tenderness, no guarding, no rebound tenderness. Bowel sounds normal in all 4 quadrants. No distention noted. No organomegaly noted. No visible injury noted. Back: No CVA tenderness. Full range of motion noted. Skin: Skin warm and dry. Normal skin color. Normal skin turgor. No rashes/lesions/lacerations noted. Extremities: No lower extremity edema. Extremities exhibit normal range of motion. Extremities nontender. Neuro: Oriented X 3. Cranial nerve exam: II-XII are grossly intact No motor deficit. No sensory deficit. Reflexes normal. Course Course Course Narrative: Left lower lung pneumonia: Patient meets criteria for charge but no severe sepsis or septic shock. Will start ceftriaxone/Zithromax and admit. Abdominal tenderness on exam CT is questioning small-bowel obstruction patient had a bowel movement and passing flatus. Medical Decision Making Differential Diagnosis Differential Diagnoses: The differential diagnosis associated with the presentation includes (Pneumonia, sepsis, septic shock, electrolyte abnormality, severe anemia, UTI.) Admission/Observation Consideration of admission/observation: Escalation of care including admission/observation considered Consult Healthcare Provider Management of the patient was discussed with: Hospitalist (Dr. Kay) Lab Data MDM Lab Attestation statement: I reviewed the patient's lab results. 06/10/23 22:46 06/10/23 22:46 Labs: Lab Results 06/10/23 06/10/23 06/10/23 Range/Units 22:46 22:46 22:46 WBC 9.7 (4.8-10.8) X10*3/uL RBC 3.88 L (4.20-5.50) X10*6/uL Hgb 11.0 L (12.0-16.0) g/dl Hct 33.6 L (37.0-47.0) % MCV 86.6 (80.0-98.0) fL MCH 28.4 (27.0-33.0) pg MCHC 32.7 (31.0-35.0) g/dl RDW 14.3 (11.0-16.0) % Plt Count 178 (160-400) X10*3/uL MPV 11.7 (9.4-12.3) fL Immature Gran % (Auto) 0.3 (0.0-0.4) % Neut % (Auto) 84.9 H (45-73) % Lymph % (Auto) 5.4 L (20-40) % [place] % (Auto) 9.1 (2-11) % Eos % (Auto) 0.0 (0-4) % Baso % (Auto) 0.3 (0-2) % Lymph # (Auto) 0.5 L (1.2-4.9) X10*3/uL [place] # (Auto) 0.9 (0.1-1.2) X10*3/uL Eos # (Auto) 0.0 (0.0-0.4) X10*3/uL Baso # (Auto) 0.0 (0.0-0.2) X10*3/uL Abs Immat Gran (auto) 0.03 (0.00-0.03) X10*3/uL Absolute Neuts (auto) 8.2 (2.0-8.3) x10*3/uL Absolute Nucleated RBC 0.000 (0.0-0.012) X10*3/uL Nucleated RBC % (auto) 0.0 (0.0-0.2) /100WBC Sodium 138 (135-145) mmol/L Potassium 3.5 (3.3-5.1) mmol/L Chloride 105 (96-108) mmol/L Carbon Dioxide 23 (22-29) mmol/L Anion Gap 14 (12-20) BUN 18 H (9-16) mg/dL Creatinine 0.91 (0.5-1.4) mg/dL Estim Creat Clear Calc 57.5 Estimated GFR > 60 Random Glucose 215 H (60-115) mg/dL Lactic Acid 1.3 (0.5-2.0) mmol/L Calcium 10.3 H (8.4-10.2) mg/dL Total Bilirubin 0.6 (0.0-1.0) mg/dL AST 18 (5-31) U/L ALT 13 (0-31) U/L Alkaline Phosphatase 61 (39-117) U/L Total Protein 7.7 (6.5-8.0) g/dL Albumin 4.1 (3.5-5.0) g/dL Urine Color Urine Appearance Urine pH (5.0-9.0) Ur Specific [place] (1.005-1.025) Urine Protein (Neg-Trace) mg/dL Urine Glucose (UA) (Negative) mg/dL Urine Ketones (Negative) mg/dL Urine Blood (Negative) Urine Nitrite (Negative) Ur Leukocyte Esterase (Negative) Urine RBC (0-2) /HPF Urine WBC (0-5) /HPF Ur Squamous Epith Cells (0-2) /HPF Urine Bacteria (None Seen) Hyaline Casts (0-2) /LPF 06/11/23 Range/Units 01:10 WBC (4.8-10.8) X10*3/uL RBC (4.20-5.50) X10*6/uL Hgb (12.0-16.0) g/dl Hct (37.0-47.0) % MCV (80.0-98.0) fL MCH (27.0-33.0) pg MCHC (31.0-35.0) g/dl RDW (11.0-16.0) % Plt Count (160-400) X10*3/uL MPV (9.4-12.3) fL Immature Gran % (Auto) (0.0-0.4) % Neut % (Auto) (45-73) % Lymph % (Auto) (20-40) % [place] % (Auto) (2-11) % Eos % (Auto) (0-4) % Baso % (Auto) (0-2) % Lymph # (Auto) (1.2-4.9) X10*3/uL [place] # (Auto) (0.1-1.2) X10*3/uL Eos # (Auto) (0.0-0.4) X10*3/uL Baso # (Auto) (0.0-0.2) X10*3/uL Abs Immat Gran (auto) (0.00-0.03) X10*3/uL Absolute Neuts (auto) (2.0-8.3) x10*3/uL Absolute Nucleated RBC (0.0-0.012) X10*3/uL Nucleated RBC % (auto) (0.0-0.2) /100WBC Sodium (135-145) mmol/L Potassium (3.3-5.1) mmol/L Chloride (96-108) mmol/L Carbon Dioxide (22-29) mmol/L Anion Gap (12-20) BUN (9-16) mg/dL Creatinine (0.5-1.4) mg/dL Estim Creat Clear Calc Estimated GFR Random Glucose (60-115) mg/dL Lactic Acid (0.5-2.0) mmol/L Calcium (8.4-10.2) mg/dL Total Bilirubin (0.0-1.0) mg/dL AST (5-31) U/L ALT (0-31) U/L Alkaline Phosphatase (39-117) U/L Total Protein (6.5-8.0) g/dL Albumin (3.5-5.0) g/dL Urine Color Yellow Urine Appearance Clear Urine pH 5.5 (5.0-9.0) Ur Specific [place] >= 1.030 H (1.005-1.025) Urine Protein 100 (2+) H (Neg-Trace) mg/dL Urine Glucose (UA) >=1000 H (Negative) mg/dL Urine Ketones Trace (Negative) mg/dL Urine Blood Negative (Negative) Urine Nitrite Negative (Negative) Ur Leukocyte Esterase Negative (Negative) Urine RBC 0-2 (0-2) /HPF Urine WBC 0-5 (0-5) /HPF Ur Squamous Epith Cells 0-2 (0-2) /HPF Urine Bacteria None Seen (None Seen) Hyaline Casts 0-2 (0-2) /LPF Independent Interpretation I performed an independent interpretation of an: Plain X-Ray (Left lung base infiltrate.) and CT Scan (Abdomen pelvis:1. Mildly dilated fluid-filled small bowel loop in the pelvis, of uncertain clinical significance as the remainder of the bowel gas pattern is unremarkable. In the proper clinical setting, an early developing small bowel obstruction would be difficult to entirely exclude.) Radiology Impression Discussion of test interpretation with radiology: I have reviewed the radiologist's reading. Medications Administered Generic Name Dose Route Start Last Admin Trade Name Freq PRN Reason Stop Dose Admin Sodium Chloride 500 mls @ 500 mls/hr 06/11/23 02:33 06/11/23 03:08 Ns IV 06/11/23 03:32 500 mls/hr .Q1H ONE Administration Discontinued Medications Generic Name Dose Route Start Last Admin Trade Name Freq PRN Reason Stop Dose Admin Al Hydroxide/Mg Hydroxide 30 ml 06/11/23 00:42 06/11/23 01:07 Magnesium Hydrox/Alum Hydrox 30 Ml Oral.Susp PO 06/11/23 00:43 30 ml ONCE ONE Administration Famotidine 20 mg 07/24/23 00:42 06/11/23 01:07 Famotidine/Pf 20 Mg/2 Ml Vial IVPUSH 06/11/23 00:43 20 mg ONCE ONE Administration Ceftriaxone Sodium 1 gm/ 50 mls @ 100 mls/hr 06/11/23 02:25 06/11/23 03:02 Sodium Chloride IV 06/11/23 02:54 100 mls/hr ONCE ONE Administration Discharge Plan Discharge Clinical Impression: Pneumonia Patient Disposition: Admitted As Inpatient
[2023-06-11] MEDS: Famotidine/PF 20 MG/2 ML VIAL IVPUSH (01:07)
[2023-06-11] MEDS: Magnesium Hydrox/Alum Hydrox 30 ML ORAL.SUSP PO (01:07)
[2023-06-11 01:17] LABS: Appearance Urine Clear; Color Urine Yellow; Glucose Urine UA >=1000 mg/dL (Negative); Leukocyte Esterase Urine Negative (Negative); Nitrite Urine Negative (Negative); PH 5.5 (5.0-9.0); Specific Gravity - Urine >= 1.030 (1.005-1.025); UMIC TRIGGER UACC YES; Urine Blood Negative (Negative); Urine Ketones Trace mg/dL (Negative); Urine Protein 100 (2+) mg/dL (Neg-Trace)
[2023-06-11 01:28] LABS: Bacteria Urine None Seen (None Seen); Hyaline Casts Urine 0-2 /LPF (0-2); RBC Urine 0-2 /HPF (0-2); Squamous Epithelial Cell Urine 0-2 /HPF (0-2); WBC Urine 0-5 /HPF (0-5)
[2023-06-11 02:30] VITALS: BP 124/54; PULSE 78; RESP 17; TEMP 37.5; O2SAT 94
--- NOTE | 2023-06-11 02:33 | PM.IMHP ---
History of Present Illness Date of Service: 06/11/23 Chief Complaint: Fever This is a 77-year-old female with pertinent history of congestive heart failure with preserved ejection fraction, paroxysmal atrial fibrillation on Eliquis, essential hypertension, mixed hyperlipidemia, insulin-dependent diabetes mellitus presents to the emergency department for evaluation of fever. Patient states it started 1 day prior to presentation. It is associated with chills. Patient also has productive cough that started 1 day prior to presentation. She denies chest discomfort, palpitations, abdominal pain. No dysuria, increased frequency or hesitancy. Patient denies shortness of breath, changes in bowel habits In the emergency department, patient was found to be septic and imaging concerning for pneumonia Review of Systems Constitutional: Constitutional: Reports chills and Reports fever(s) Respiratory: Respiratory: Reports cough Gastrointestinal: Gastrointestinal: Reports no additional gastrointestinal complaints Genitourinary: Genitourinary: Reports no additional female genitourinary complaints [facility] Medical History Anemia Breast cancer screening by mammogram Breast nodule Constipation Decompensated heart failure Dysuria Elevated cholesterol HTN (hypertension) Hyperlipidemia Myocardial injury Obesity (BMI 30-39.9) Osteopenia Pain and swelling of lower extremity Paroxysmal atrial fibrillation TIA (transient ischemic attack) Type 2 diabetes mellitus with hyperglycemia Vitamin D deficiency Yeast infection involving the vagina and surrounding area Family History Father Diabetes Hypertension Mother No problems noted. Paternal Aunt Colon cancer Surgical History History of appendectomy History of cyst of breast Status post right knee replacement Social History Housing: Apartment Unable to assess alcohol history related to: Unable to respond Alcohol intake: never Patient Tobacco Use Status: Never used Tobacco Smoked in Last 30 Days: No e-Cigarette/Vaping Use: Never Used Second Hand Smoke Exposure: No Use of substances other than those prescribed or required for medical reasons: No Advance Directives: No Advance Directives Information Provided: Yes Nutrition Risks: No Nutritional Risk service: No Current occupational status: retired Cognitive needs: No Hearing needs: No Vision needs: Yes Meds Allergies Allergy/AdvReac Type Severity Reaction Status Date / Time No Known Allergies Allergy Verified 06/01/23 09:55 Active Medications: Current Medications Acetaminophen (Acetaminophen 325 Mg Tablet) 650 mg PO Q6H PRN PRN Reason: Pain, Mild (Pain Scale 1-3) Acetaminophen (Acetaminophen Supp 650 Mg Supp.Rect) 650 mg OR Q6H PRN PRN Reason: Pain, Mild (Pain Scale 1-3) Ceftriaxone Sodium 1 gm/ (Sodium Chloride) 50 mls @ 100 mls/hr IV ONCE ONE Stop: 06/11/23 02:54 Azithromycin 500 mg/ Sodium (Chloride) 250 mls @ 125 mls/hr IV ONCE ONE Stop: 06/11/23 04:24 Melatonin (Melatonin 3 Mg Tablet) 6 mg PO BEDTIME PRN PRN Reason: Insomnia Ondansetron HCl (Ondansetron Hcl 4 Mg/2 Ml Vial) 4 mg IVPUSH Q8H PRN PRN Reason: Nausea and Vomiting Sodium Chloride (0.9 % Sodium Chloride Flush 3 Ml Syringe) 3 ml IVFLUSH [facility] Medications Medication Instructions Recorded Confirmed Last Taken Type dulaglutide 3 mg/0.5 mL 3 mg subcut MO 03/21/23 06/11/23 03/19/23 History subcutaneous pen injector insulin detemir U-100 100 unit/mL 20 unit subcut BEDTIME 03/21/23 06/11/23 03/20/23 History (3 mL) subcutaneous pen (Levemir FlexTouch U-100 Insulin) aspirin 81 mg tablet,delayed 81 mg PO DAILY 05/17/23 06/11/23 Unknown History release (Adult Aspirin Regimen) Physical Exam Vital Signs and Narrative: Vital Signs: Last Vital Signs Temp 102 F H 06/10/23 22:28 Pulse 106 H 06/10/23 22:28 Resp 20 06/10/23 22:28 BP 165/82 H 06/10/23 22:28 Pulse Ox 94 06/10/23 22:28 O2 Del Method Room Air 06/10/23 22:28 BMI result Body Mass Index 36.0 Middle-aged female lying in bed in no distress Neck supple, no JVD Regular rate and rhythm, S1-S2 heard Left-sided crackles without wheezing Abdomen soft nontender, no guarding, no rigidity Patient is awake, alert and oriented to self, place, time and person ; no focal motor deficit Psych: Normal mood No pedal edema Results Labs 06/10/23 22:46 06/10/23 22:46 Labs: Laboratory Results - last 24 hr 06/10/23 06/10/23 06/10/23 22:46 22:46 22:46 MCV 86.6 MCH 28.4 MCHC 32.7 RDW 14.3 Plt Count 178 MPV 11.7 Immature Gran % (Auto) 0.3 Neut % (Auto) 84.9 H Lymph % (Auto) 5.4 L [place] % (Auto) 9.1 Eos % (Auto) 0.0 Baso % (Auto) 0.3 Lymph # (Auto) 0.5 L [place] # (Auto) 0.9 Eos # (Auto) 0.0 Baso # (Auto) 0.0 Abs Immat Gran (auto) 0.03 Absolute Neuts (auto) 8.2 Absolute Nucleated RBC 0.000 Nucleated RBC % (auto) 0.0 Anion Gap 14 Estim Creat Clear Calc 57.5 Estimated GFR > 60 Random Glucose 215 H Lactic Acid 1.3 Calcium 10.3 H Total Bilirubin 0.6 AST 18 ALT 13 Alkaline Phosphatase 61 Total Protein 7.7 Albumin 4.1 Urine Color Urine Appearance Urine pH Ur Specific [place] Urine Protein Urine Glucose (UA) Urine Ketones Urine Blood Urine Nitrite Ur Leukocyte Esterase Urine RBC Urine WBC Ur Squamous Epith Cells Urine Bacteria Hyaline Casts 06/11/23 01:10 MCV MCH MCHC RDW Plt Count MPV Immature Gran % (Auto) Neut % (Auto) Lymph % (Auto) [place] % (Auto) Eos % (Auto) Baso % (Auto) Lymph # (Auto) [place] # (Auto) Eos # (Auto) Baso # (Auto) Abs Immat Gran (auto) Absolute Neuts (auto) Absolute Nucleated RBC Nucleated RBC % (auto) Anion Gap Estim Creat Clear Calc Estimated GFR Random Glucose Lactic Acid Calcium Total Bilirubin AST ALT Alkaline Phosphatase Total Protein Albumin Urine Color Yellow Urine Appearance Clear Urine pH 5.5 Ur Specific [place] >= 1.030 H Urine Protein 100 (2+) H Urine Glucose (UA) >=1000 H Urine Ketones Trace Urine Blood Negative Urine Nitrite Negative Ur Leukocyte Esterase Negative Urine RBC 0-2 Urine WBC 0-5 Ur Squamous Epith Cells 0-2 Urine Bacteria None Seen Hyaline Casts 0-2 Imaging Radiologist's Impressions: Impressions Chest X-Ray 06/11/23 01:35 IMPRESSION: Possible mild patchy left basilar opacity which could represent early developing consolidation. Coarsened appearance of the interstitium may reflect acute or chronic airways disease. Assessment and Plan (1) Pneumonia: Status: Acute Plan This is a 77-year-old female with pertinent history of congestive heart failure with preserved ejection fraction, paroxysmal atrial fibrillation on Eliquis, essential hypertension, mixed hyperlipidemia, insulin-dependent diabetes mellitus presents to the emergency department for evaluation of fever. #. Sepsis due to community-acquired pneumonia. Resuscitated with IV crystalloids. Initiating empiric antibiotics for cap. Blood culture, sputum culture pending and MRSA nasal screen. Lactic acid obtained #. Congestive heart failure with preserved ejection fraction. Hold Lasix in the setting of sepsis. Resume as appropriate #. Paroxysmal atrial fibrillation. Continue Eliquis #. Essential hypertension. Hold antihypertensives in the setting of sepsis. Resume as appropriate #. Insulin-dependent type 2 diabetes mellitus with hyperglycemia. Initiating basal plus regimen #. Obesity. Counseled regarding diet and exercise #. Normocytic anemia Med rec pending DVT prophylaxis: Manjit Full code Admit as inpatient and will require two night minimum hospital stay for IV antibiotics Time Spent With Patient Time: Total time managing care of this patient today ____ minutes. Quality Stroke Does the patient have a stroke diagnosis?: No VTE Prior VTE?: No VTE Risk Level:: Medical - moderate - high VTE Device Contraindication: Treatment Not Indicated VTE Drug Contraindication: N/A - Med Ordered
[2023-06-11] MEDS: cefTRIAXone sodium 1 GM in 0.9 % Sodium Chloride 50 ML IV (03:02)
[2023-06-11] MEDS: 0.9 % Sodium Chloride 500 ML IV (03:08)
[2023-06-11] MEDS: Azithromycin 500 MG in 0.9 % Sodium Chloride 250 ML 125 MG IV (03:52)
--- NOTE | 2023-06-11 05:39 | PC.NURSE ---
Pt remains lying on stretcher, sleeping, easily rousable, no acute distress at this time. Pending admission bed availabiilty.
[2023-06-11 05:40] LABS: MANUAL DIFF FLAG NO
[2023-06-11 05:43] LABS: Basophils Percent Auto 0.5 % (0-2); Hematocrit 32.9 % (37.0-47.0); Hemoglobin 10.4 g/dl (12.0-16.0); Imm Gran Abs Auto 0.02 X10*3/uL (0.00-0.03); Imm Gran Pct Auto 0.3 % (0.0-0.4); Lymphocytes Absolute Auto 0.9 X10*3/uL (1.2-4.9); Lymphocytes Percent Auto 14.4 % (20-40); Mean Corpuscular HGB Conc 31.6 g/dl (31.0-35.0); Mean Corpuscular Hemoglobin 28.3 pg (27.0-33.0); Mean Corpuscular Volume 89.6 fL (80.0-98.0); Mean Platelet Volume 12.1 fL (9.4-12.3); Monocytes Absolute Auto 0.6 X10*3/uL (0.1-1.2); Monocytes Percent Auto 8.9 % (2-11); Neutrophils Percent Auto 75.9 % (45-73); Platelet Count 144 X10*3/uL (160-400); Red Blood Count 3.67 X10*6/uL (4.20-5.50); Red Cell Distribution Width 14.4 % (11.0-16.0); White Blood Count 6.5 X10*3/uL (4.8-10.8)
[2023-06-11 06:01] LABS: Anion Gap 13 (12-20); Blood Urea Nitrogen 16 mg/dL (9-16); Calcium 9.7 mg/dL (8.4-10.2); Carbon Dioxide 24 mmol/L (22-29); Chloride 107 mmol/L (96-108); Creatinine Clr Calc Pharmacy 64.6; Estimated Glomerular Filt Rate > 60; Glucose Random 120 mg/dL (60-115); Potassium 3.8 mmol/L (3.3-5.1); Sodium 140 mmol/L (135-145)
[2023-06-11 06:30] VITALS: BP 157/76; PULSE 712; RESP 14; TEMP 36.7; O2SAT 98
[2023-06-11 07:29] LABS: Glucose, Whole Blood 114 mg/dL (60-115)
[2023-06-11 07:37] VITALS: BP 135/67; PULSE 78; RESP 18; O2SAT 98
--- NOTE | 2023-06-11 08:07 | PHA.MEDREC ---
Pharmacy Consult ? Medication Reconciliation Pharmacy has completed the medication reconciliation. spoke with patient and family through an size marker. They confirmed using Levemir but they did not know how many units and claim history shows last fill in October. They also confirmed trulicity (not given today) which was also last filled in October according to claim history.
--- NOTE | 2023-06-11 08:38 | PC.NURSE ---
pt axox4, VSS, respirations even and unlabored, sats 98% RA, fine crackles auscultated bilateral lower lobes, pt denies sob, skin wpd, cap refill <3 seconds. POC 114; no insulin coverage needed. family at bedside; aware of plan of care; deny questions/concerns at this time. call hines within reach.
--- NOTE | 2023-06-11 08:47 | P.PNIM_ITS ---
Subjective Subjective Date of Service: 06/11/23 Interval History: feeling better Physical Exam Vital Signs: Vital Signs: Last Vital Signs Temp 98.1 F 06/11/23 06:30 Pulse 78 06/11/23 07:37 Resp 18 06/11/23 07:37 BP 135/67 06/11/23 07:37 Pulse Ox 98 06/11/23 07:37 O2 Del Method Room Air 06/11/23 07:37 BMI result Body Mass Index 36.0 General: AO X 3, no acute distress Resp: CTA bilateral, no accessory muscles used CVS: S1,S2,RRR GI: soft, non tender, non distended Neuro: motor grossly intact, alert Psych: appropriate affect, appropriate insight Objective Data Active Medications Acetaminophen (Acetaminophen 325 Mg Tablet) 650 mg PO Q6H PRN PRN Reason: Pain, Mild (Pain Scale 1-3) Acetaminophen (Acetaminophen Supp 650 Mg Supp.Rect) 650 mg [place] Q6H PRN PRN Reason: Pain, Mild (Pain Scale 1-3) Apixaban (Apixaban 5 Mg Tablet) 5 mg PO BID [facility] Aspirin (Aspirin Enteric Coated 81 Mg Tablet.Dr) 81 mg PO DAILY [facility] Atorvastatin Calcium (Atorvastatin Calcium 10 Mg Tablet) 10 mg PO BEDTIME [facility] Dextrose (Dextrose 50 % 25 Gm/50 Ml Syringe) 25 gm IVPUSH Q15M PRN; Protocol PRN Reason: per Hypoglycemia Standing Ord. Dextrose (Dextrose 50 % 25 Gm/50 Ml Syringe) 25 gm IVPUSH Q15M PRN; Protocol PRN Reason: per Hypoglycemia Standing Ord. Empagliflozin (Empagliflozin 10 Mg Tablet) 10 mg PO DAILY [facility] Furosemide (Furosemide 20 Mg Tablet) 20 mg PO DAILY [facility]; Protocol Glucose (Glucose Gel 15 Gm Gel..Gram.) 15 gm PO Q15M PRN; Protocol PRN Reason: per Hypoglycemia Standing Ord. Glucose (Glucose Gel 15 Gm Gel..Gram.) 15 gm PO Q15M PRN; Protocol PRN Reason: per Hypoglycemia Standing Ord. Azithromycin 500 mg/ Sodium (Chloride) 250 mls @ 125 mls/hr IV Q24H [facility] Ceftriaxone Sodium 1 gm/ (Sodium Chloride) 50 mls @ 100 mls/hr IV Q24H [facility] Insulin Glargine (Insulin Glargine,Hum.Rec.Anlog 100 Unit/Ml 10 Ml Vial) 10 unit SUBCUT BEDTIME [facility] Insulin Human Lispro (Insulin Lispro 100 Unit/Ml 3 Ml Vial) 0 unit SUBCUT QIDACHS [facility]; Protocol Last Admin: 06/11/23 07:33 Dose: Not Given Documented By: ABE Non-Admin Reason: No Insulin Coverage Insulin Human Lispro (Insulin Lispro 100 Unit/Ml 3 Ml Vial) 0 unit SUBCUT Q IDACHS [facility]; Protocol Isosorbide Mononitrate (Isosorbide Mononitrate 30 Mg Tab.Er.24h) 30 mg PO BID [facility]; Protocol Losartan Potassium (Losartan Potassium 50 Mg Tablet) 100 mg PO DAILY [facility]; Protocol Melatonin (Melatonin 3 Mg Tablet) 6 mg PO BEDTIME PRN PRN Reason: Insomnia Metoprolol Tartrate (Metoprolol Tartrate 25 Mg Tablet) 25 mg PO BID [facility]; Protocol Ondansetron HCl (Ondansetron Hcl 4 Mg/2 Ml Vial) 4 mg IVPUSH Q8H PRN PRN Reason: Nausea and Vomiting Pharmacy Consult (Consult Rx Perform Med Rec) 1 each MISCELLANE ONCE PRN PRN Reason: Consult order Sodium Chloride (0.9 % Sodium Chloride Flush 3 Ml Syringe) 3 ml IVFLUSH QSHIFT [facility] Vitamin D (Cholecalciferol (Vitamin D3) 25 Mcg Tablet) 50 mcg PO DAILY [facility] Labs 06/11/23 05:35 06/11/23 05:35 Labs: Laboratory Results - last 24 hr 06/10/23 06/10/23 06/10/23 22:46 22:46 22:46 MCV 86.6 MCH 28.4 MCHC 32.7 RDW 14.3 Plt Count 178 MPV 11.7 Immature Gran % (Auto) 0.3 Neut % (Auto) 84.9 H Lymph % (Auto) 5.4 L Blaine % (Auto) 9.1 Eos % (Auto) 0.0 Baso % (Auto) 0.3 Lymph # (Auto) 0.5 L Blaine # (Auto) 0.9 Eos # (Auto) 0.0 Baso # (Auto) 0.0 Abs Immat Gran (auto) 0.03 Absolute Neuts (auto) 8.2 Absolute Nucleated RBC 0.000 Nucleated RBC % (auto) 0.0 Anion Gap 14 Estim Creat Clear Calc 57.5 Estimated GFR > 60 POC Glucose Random Glucose 215 H Lactic Acid 1.3 Calcium 10.3 H Total Bilirubin 0.6 AST 18 ALT 13 Alkaline Phosphatase 61 Total Protein 7.7 Albumin 4.1 Urine Color Urine Appearance Urine pH Ur Specific [place] Urine Protein Urine Glucose (UA) Urine Ketones Urine Blood Urine Nitrite Ur Leukocyte Esterase Urine RBC Urine WBC Ur Squamous Epith Cells Urine Bacteria Hyaline Casts 06/11/23 06/11/23 06/11/23 01:10 05:35 05:35 MCV 89.6 MCH 28.3 MCHC 31.6 RDW 14.4 Plt Count 144 L MPV 12.1 Immature Gran % (Auto) 0.3 Neut % (Auto) 75.9 H Lymph % (Auto) 14.4 L Blaine % (Auto) 8.9 Eos % (Auto) 0.0 Baso % (Auto) 0.5 Lymph # (Auto) 0.9 L [place]aine # (Auto) 0.6 Eos # (Auto) 0.0 Baso # (Auto) 0.0 Abs Immat Gran (auto) 0.02 Absolute Neuts (auto) 5.0 Absolute Nucleated RBC 0.000 Nucleated RBC % (auto) 0.0 Anion Gap 13 Estim Creat Clear Calc 64.6 Estimated GFR > 60 POC Glucose Random Glucose 120 H Lactic Acid Calcium 9.7 Total Bilirubin AST ALT Alkaline Phosphatase Total Protein Albumin Urine Color Yellow Urine Appearance Clear Urine pH 5.5 Ur Specific [place] >= 1.030 H Urine Protein 100 (2+) H Urine Glucose (UA) >=1000 H Urine Ketones Trace Urine Blood Negative Urine Nitrite Negative Ur Leukocyte Esterase Negative Urine RBC 0-2 Urine WBC 0-5 Ur Squamous Epith Cells 0-2 Urine Bacteria None Seen Hyaline Casts 0-2 06/11/23 07:25 MCV MCH MCHC RDW Plt Count MPV Immature Gran % (Auto) Neut % (Auto) Lymph % (Auto) [place] % (Auto) Eos % (Auto) Baso % (Auto) Lymph # (Auto) Blaine # (Auto) Eos # (Auto) Baso # (Auto) Abs Immat Gran (auto) Absolute Neuts (auto) Absolute Nucleated RBC Nucleated RBC % (auto) Anion Gap Estim Creat Clear Calc Estimated GFR POC Glucose 114 Random Glucose Lactic Acid Calcium Total Bilirubin AST ALT Alkaline Phosphatase Total Protein Albumin Urine Color Urine Appearance Urine pH Ur Specific [place] Urine Protein Urine Glucose (UA) Urine Ketones Urine Blood Urine Nitrite Ur Leukocyte Esterase Urine RBC Urine WBC Ur Squamous Epith Cells Urine Bacteria Hyaline Casts Assessment and Plan (1) Pneumonia: Status: Acute Plan 77F PMH chronic diastolic chf, paroxysmal afib, htn, hld, DM, obesity, presented with fever sepsis due to pneumonia celestina mcqueen, follow up cutlrues chronic diastolic chf lasix paroxysmal afib metoprolol, eliquis htn metoprolol, losartan, imdur DM insulin obesity weight loss hld statin dvt prophylaxis - on eliquis full code reason for continued hospitalization:awaiting defervesence Time Spent With Patient Time: Total time managing care of this patient today ____ minutes. Quality Stroke Does the patient have a stroke diagnosis?: No VTE Prior VTE?: No VTE Risk Level:: Medical - moderate - high VTE Device Contraindication: Treatment Not Indicated VTE Drug Contraindication: N/A - Med Ordered
[2023-06-11 09:21] VITALS: BP 100/66; PULSE 76; RESP 18
[2023-06-11] MEDS: Aspirin Enteric Coated 81 MG TABLET.DR PO (09:22)
[2023-06-11] MEDS: Apixaban 5 MG TABLET PO ×2 (09:23→22:02)
[2023-06-11] MEDS: Cholecalciferol (Vitamin D3) 25 MCG TABLET 50 MCG PO (09:23)
[2023-06-11] MEDS: Furosemide 20 MG TABLET PO (09:23)
[2023-06-11] MEDS: 0.9 % Sodium Chloride Flush 3 ML SYRINGE IVFLUSH ×2 (09:24→17:48)
--- NOTE | 2023-06-11 09:49 | PC.NURSE ---
Called for Jardiance from pharmacy, waiting med
--- NOTE | 2023-06-11 10:44 | MHC.CM.PN ---
Met with patient and plate shop helper in regards to discharge planning. Patient lives alone, ambulates with a cane/walker, has [employer] hours throug [facility]. PCP verified. Copy of HCP obtained from [facility]. Patient received 1 Pfizer vaccine. IMM explained and signed. Patient's son will transport her home when medically stable. No additional services anticipated to be needed at this time. Continue to monitor for d/c needs.
[2023-06-11] MEDS: Empagliflozin 10 MG TABLET PO (10:48)
[2023-06-11 12:27] LABS: Glucose, Whole Blood 101 mg/dL (60-115)
[2023-06-11 12:49] LABS: Glucose, Whole Blood 103 mg/dL (60-115)
--- NOTE | 2023-06-11 17:46 | PC.NURSE ---
pt ambulating to bathroom; steady gait. daughter at bedside. bed/gown changed. poc 101; no insulin coverage needed at this time. call hines within reach.
[2023-06-11 17:47] LABS: Glucose, Whole Blood 101 mg/dL (60-115)
[2023-06-11 19:53] VITALS: BP 152/70; PULSE 145; RESP 18; TEMP 36.6; O2SAT 97
[2023-06-11 20:04] VITALS: BP 170/83; PULSE 99; RESP 17; TEMP 37; O2SAT 97
[2023-06-11 21:00] VITALS: BMI 36.8
[2023-06-11 22:00] LABS: Glucose, Whole Blood 142 mg/dL (60-115)
[2023-06-11] MEDS: Metoprolol Tartrate 25 MG TABLET PO (22:01)
[2023-06-11] MEDS: Isosorbide Mononitrate 30 MG TAB.ER.24H PO (22:01)
[2023-06-11] MEDS: Insulin Glargine,Hum.rec.anlog 100 UNIT/ML 10 ML VIAL 10 UNIT SUBCUT (22:02)
[2023-06-11] MEDS: Atorvastatin Calcium 10 MG TABLET PO (22:02)
[2023-06-12 03:57] VITALS: BP 151/66; PULSE 75; RESP 17; TEMP 36.9; O2SAT 95
[2023-06-12] MEDS: cefTRIAXone sodium 1 GM in 0.9 % Sodium Chloride 50 ML IV (04:09)
[2023-06-12] MEDS: Azithromycin 500 MG in 0.9 % Sodium Chloride 250 ML 125 MG IV (05:57)
[2023-06-12 06:37] LABS: Hematocrit 31.8 % (37.0-47.0); Hemoglobin 9.9 g/dl (12.0-16.0); Mean Corpuscular HGB Conc 31.1 g/dl (31.0-35.0); Mean Corpuscular Hemoglobin 27.9 pg (27.0-33.0); Mean Corpuscular Volume 89.6 fL (80.0-98.0); Mean Platelet Volume 12.4 fL (9.4-12.3); Platelet Count 157 X10*3/uL (160-400); Red Blood Count 3.55 X10*6/uL (4.20-5.50); Red Cell Distribution Width 14.4 % (11.0-16.0)
[2023-06-12 06:49] LABS: Anion Gap 8 (12-20); Blood Urea Nitrogen 17 mg/dL (9-16); Calcium 10.5 mg/dL (8.4-10.2); Carbon Dioxide 29 mmol/L (22-29); Chloride 105 mmol/L (96-108); Estimated Glomerular Filt Rate > 60; Glucose Fasting 102 mg/dL (60-99); Potassium 3.9 mmol/L (3.3-5.1); Sodium 138 mmol/L (135-145)
[2023-06-12 07:20] VITALS: BP 145/65; PULSE 77; RESP 26; TEMP 37; O2SAT 98
[2023-06-12 07:32] LABS: Glucose, Whole Blood 118 mg/dL (60-115)
--- NOTE | 2023-06-12 08:32 | HO.PM.IMPN ---
Subjective Subjective Date of Service: 06/12/23 Interval History: tolerating solids, but with some discomfort, no further fevers, overall improved Physical Exam Vital Signs: Vital Signs: Last Vital Signs Temp 98.6 F 06/12/23 07:20 Pulse 77 06/12/23 07:20 Resp 26 H 06/12/23 07:20 BP 145/65 H 06/12/23 07:20 Pulse Ox 98 06/12/23 07:20 O2 Del Method Room Air 06/12/23 07:20 BMI result Body Mass Index 36.8 General: AO X 3, no acute distress Resp: CTA bilateral, no accessory muscles used CVS: S1,S2,RRR GI: soft, non tender, non distended Neuro: motor grossly intact, alert Psych: appropriate affect, appropriate insight Objective Data Active Medications Acetaminophen (Acetaminophen 325 Mg Tablet) 650 mg PO Q6H PRN PRN Reason: Pain, Mild (Pain Scale 1-3) Acetaminophen (Acetaminophen Supp 650 Mg Supp.Rect) 650 mg [place] Q6H PRN PRN Reason: Pain, Mild (Pain Scale 1-3) Apixaban (Apixaban 5 Mg Tablet) 5 mg PO BID [facility] Last Admin: 06/11/23 22:02 Dose: 5 mg Documented By: MATTHEW Aspirin (Aspirin Enteric Coated 81 Mg Tablet.Dr) 81 mg PO DAILY [facility] Last Admin: 06/11/23 09:22 Dose: 81 mg Documented By: ABE Atorvastatin Calcium (Atorvastatin Calcium 10 Mg Tablet) 10 mg PO BEDTIME [facility] Last Admin: 06/11/23 22:02 Dose: 10 mg Documented By: MATTHEW Dextrose (Dextrose 50 % 25 Gm/50 Ml Syringe) 25 gm IVPUSH Q15M PRN; Protocol PRN Reason: per Hypoglycemia Standing Ord. Dextrose (Dextrose 50 % 25 Gm/50 Ml Syringe) 25 gm IVPUSH Q15M PRN; Protocol PRN Reason: per Hypoglycemia Standing Ord. Empagliflozin (Empagliflozin 10 Mg Tablet) 10 mg PO DAILY [facility] Last Admin: 06/11/23 10:48 Dose: 10 mg Documented By: ABE Furosemide (Furosemide 20 Mg Tablet) 20 mg PO DAILY [facility]; Protocol Last Admin: 06/11/23 09:23 Dose: 20 mg Documented By: ABE Glucose (Glucose Gel 15 Gm Gel..Gram.) 15 gm PO Q15M PRN; Protocol PRN Reason: per Hypoglycemia Standing Ord. Glucose (Glucose Gel 15 Gm Gel..Gram.) 15 gm PO Q15M PRN; Protocol PRN Reason: per Hypoglycemia Standing Ord. Azithromycin 500 mg/ Sodium (Chloride) 250 mls @ 125 mls/hr IV Q24H [facility] Last Admin: 06/12/23 05:57 Dose: 125 mls/hr Documented By: MATTHEW Ceftriaxone Sodium 1 gm/ (Sodium Chloride) 50 mls @ 100 mls/hr IV Q24H [facility] Last Infusion: 06/12/23 05:02 Dose: 0 mls/hr Documented By: MATTHEW Insulin Glargine (Insulin Glargine,Hum.Rec.Anlog 100 Unit/Ml 10 Ml Vial) 10 unit SUBCUT BEDTIME [facility] Last Admin: 06/11/23 22:02 Dose: 10 unit Documented By: MATTHEW Insulin Human Lispro (Insulin Lispro 100 Unit/Ml 3 Ml Vial) 0 unit SUBCUT QIDACHS [facility]; Protocol Last Admin: 06/12/23 07:35 Dose: Not Given Documented By: YANETH Non-Admin Reason: No Insulin Coverage Insulin Human Lispro (Insulin Lispro 100 Unit/Ml 3 Ml Vial) 0 unit SUBCUT QIDACHS [facility]; Protocol Last Admin: 06/12/23 07:06 Dose: Not Given Documented By: YANETH Non-Admin Reason: Duplicate Order Isosorbide Mononitrate (Isosorbide Mononitrate 30 Mg Tab.Er.24h) 30 mg PO BID [facility]; Protocol Last Admin: 06/11/23 22:01 Dose: 30 mg Documented By: MATTHEW Losartan Potassium (Losartan Potassium 50 Mg Tablet) 100 mg PO DAILY [facility]; Protocol Last Admin: 06/11/23 09:25 Dose: Not Given Documented By: ABE Non-Admin Reason: Decreased Blood Pressure Melatonin (Melatonin 3 Mg Tablet) 6 mg PO BEDTIME PRN PRN Reason: Insomnia Metoprolol Tartrate (Metoprolol Tartrate 25 Mg Tablet) 25 mg PO BID [facility]; Protocol Last Admin: 06/11/23 22:01 Dose: 25 mg Documented By: MATTHEW Ondansetron HCl (Ondansetron Hcl 4 Mg/2 Ml Vial) 4 mg IVPUSH Q8H PRN PRN Reason: Nausea and Vomiting Pharmacy Consult (Consult Rx Perform Med Rec) 1 each MISCELLANE ONCE PRN PRN Reason: Consult order Sodium Chloride (0.9 % Sodium Chloride Flush 3 Ml Syringe) 3 ml IVFLUSH QSHIFT [facility] Last Admin: 06/12/23 07:29 Dose: Not Given Documented By: YANETH Non-Admin Reason: IV Running Vitamin D (Cholecalciferol (Vitamin D3) 25 Mcg Tablet) 50 mcg PO DAILY [facility] Last Admin: 06/11/23 09:23 Dose: 50 mcg Documented By: ABE Labs 06/12/23 05:47 06/12/23 05:47 Labs: Laboratory Results - last 24 hr 06/11/23 06/11/23 06/11/23 12:16 12:46 17:44 MCV MCH MCHC RDW Plt Count MPV Absolute Nucleated RBC Nucleated RBC % (auto) Anion Gap Estim Creat Clear Calc Estimated GFR POC Glucose 101 103 101 Fasting Glucose Calcium 06/11/23 06/12/23 06/12/23 21:57 05:47 05:47 MCV 89.6 MCH 27.9 MCHC 31.1 RDW 14.4 Plt Count 157 L MPV 12.4 H Absolute Nucleated RBC 0.000 Nucleated RBC % (auto) 0.0 Anion Gap 8 L Estim Creat Clear Calc 68.0 Estimated GFR > 60 POC Glucose 142 H Fasting Glucose 102 H Calcium 10.5 H D 06/12/23 07:26 MCV MCH MCHC RDW Plt Count MPV Absolute Nucleated RBC Nucleated RBC % (auto) Anion Gap Estim Creat Clear Calc Estimated GFR POC Glucose 118 H Fasting Glucose Calcium Microbiology Microbiology Results: Microbiology 06/10/23 22:46 Blood Culture - Preliminary Blood - Venous Gram negative brian 06/11/23 00:39 Blood Culture - Preliminary Blood - Venous No growth after 24 hours. Assessment and Plan (1) Pneumonia: Status: Acute Plan 77F PMH chronic diastolic chf, paroxysmal afib, htn, hld, DM, obesity, presented with fever sepsis due to GNR bacteremia source unclear - ?pna - has small opacity on cxr, ?GI - symptoms were abdominal, some small bowel dilitation on CT, UA negative continue rocephin, azithro, follow up cultures overall improved chronic diastolic chf lasix paroxysmal afib metoprolol, eliquis htn metoprolol, losartan, imdur DM insulin, jardiance obesity weight loss hld statin dvt prophylaxis - on eliquis full code reason for continued hospitalization:awaiting final culture results Time Spent With Patient Time: Total time managing care of this patient today ____ minutes. Quality Stroke Does the patient have a stroke diagnosis?: No VTE Prior VTE?: No VTE Risk Level:: Medical - moderate - high VTE Device Contraindication: Treatment Not Indicated VTE Drug Contraindication: N/A - Med Ordered
[2023-06-12] MEDS: Empagliflozin 10 MG TABLET PO (08:39)
[2023-06-12] MEDS: Aspirin Enteric Coated 81 MG TABLET.DR PO (08:39)
[2023-06-12] MEDS: Apixaban 5 MG TABLET PO ×2 (08:39→21:03)
[2023-06-12] MEDS: Furosemide 20 MG TABLET PO (08:39)
[2023-06-12] MEDS: Metoprolol Tartrate 25 MG TABLET PO ×2 (08:39→21:04)
[2023-06-12] MEDS: Isosorbide Mononitrate 30 MG TAB.ER.24H PO ×2 (08:39→21:03)
[2023-06-12] MEDS: Losartan Potassium 50 MG TABLET 100 MG PO (08:39)
[2023-06-12] MEDS: Cholecalciferol (Vitamin D3) 25 MCG TABLET 50 MCG PO (08:39)
[2023-06-12 11:33] LABS: Glucose, Whole Blood 113 mg/dL (60-115)
[2023-06-12 16:16] VITALS: BP 176/81; PULSE 62; RESP 20; TEMP 36.2; O2SAT 96
[2023-06-12] MEDS: 0.9 % Sodium Chloride Flush 3 ML SYRINGE IVFLUSH (16:18)
[2023-06-12 16:30] LABS: Glucose, Whole Blood 96 mg/dL (60-115)
[2023-06-12 19:26] VITALS: BP 157/70; PULSE 70; RESP 18; TEMP 36.4; O2SAT 96
[2023-06-12 20:22] LABS: Glucose, Whole Blood 147 mg/dL (60-115)
[2023-06-12] MEDS: Atorvastatin Calcium 10 MG TABLET PO (21:03)
[2023-06-12] MEDS: Insulin Glargine,Hum.rec.anlog 100 UNIT/ML 10 ML VIAL 10 UNIT SUBCUT (21:04)
[2023-06-13] MEDS: 0.9 % Sodium Chloride Flush 3 ML SYRINGE IVFLUSH ×3 (00:06→20:55)
[2023-06-13 04:00] VITALS: BP 142/66; PULSE 66; RESP 18; TEMP 36.1; O2SAT 96
[2023-06-13] MEDS: cefTRIAXone sodium 1 GM in 0.9 % Sodium Chloride 50 ML IV (04:15)
[2023-06-13] MEDS: Azithromycin 500 MG in 0.9 % Sodium Chloride 250 ML 125 MG IV (06:01)
[2023-06-13 07:10] VITALS: BP 150/78; PULSE 62; RESP 18; TEMP 36.7; O2SAT 98
[2023-06-13 07:46] LABS: Glucose, Whole Blood 113 mg/dL (60-115)
[2023-06-13] MEDS: Losartan Potassium 50 MG TABLET 100 MG PO (08:39)
[2023-06-13] MEDS: Apixaban 5 MG TABLET PO ×2 (08:40→20:50)
[2023-06-13] MEDS: Furosemide 20 MG TABLET PO (08:40)
[2023-06-13] MEDS: Empagliflozin 10 MG TABLET PO (08:40)
[2023-06-13] MEDS: Aspirin Enteric Coated 81 MG TABLET.DR PO (08:40)
[2023-06-13] MEDS: Metoprolol Tartrate 25 MG TABLET PO ×2 (08:40→20:50)
[2023-06-13] MEDS: Isosorbide Mononitrate 30 MG TAB.ER.24H PO ×2 (08:40→20:50)
[2023-06-13] MEDS: Cholecalciferol (Vitamin D3) 25 MCG TABLET 50 MCG PO (08:41)
[2023-06-13 11:17] LABS: Glucose, Whole Blood 93 mg/dL (60-115)
--- NOTE | 2023-06-13 12:38 | HO.PM.IMPN ---
Subjective Subjective Date of Service: 06/13/23 Interval History: Sinhala-speaking, history obtained via [id number], patient sitting comfortably denies cough no shortness of breath, denies urinary symptoms of urgency, no frequency, no dysuria, denies abdominal pain, no diarrhea, no nausea no vomiting tolerating diet, no other acute issues overnight denies fever, no chills Review of Systems all other system reviewed and negative. Physical Exam Vital Signs: Vital Signs: Last Vital Signs Temp 98.1 F 06/13/23 07:10 Pulse 62 06/13/23 07:10 Resp 18 06/13/23 07:10 BP 150/78 H 06/13/23 07:10 Pulse Ox 98 06/13/23 07:10 O2 Del Method Room Air 06/13/23 07:10 BMI result Body Mass Index 36.8 Const: Other: General resting comfortably in no acute distress. Neck supple no JVD. CVS regular rate rhythm, Respiratory lungs left-sided coarse breath sounds, no respiratory distress, no wheeze, no rhonchi. Gastrointestinal abdomen soft, nontender, bowel sounds audible, no guarding , no rigidity. Extremities no edema. Neuro nonfocal ,speech clear. Skin no rash psych appropriate affect Objective Data Active Medications Acetaminophen (Acetaminophen 325 Mg Tablet) 650 mg PO Q6H PRN PRN Reason: Pain, Mild (Pain Scale 1-3) Acetaminophen (Acetaminophen Supp 650 Mg Supp.Rect) 650 mg [place] Q6H PRN PRN Reason: Pain, Mild (Pain Scale 1-3) Apixaban (Apixaban 5 Mg Tablet) 5 mg PO BID [facility] Last Admin: 06/13/23 08:40 Dose: 5 mg Documented By: SHOAIB Aspirin (Aspirin Enteric Coated 81 Mg Tablet.) 81 mg PO DAILY [facility] Last Admin: 06/13/23 08:40 Dose: 81 mg Documented By: SHOAIB Atorvastatin Calcium (Atorvastatin Calcium 10 Mg Tablet) 10 mg PO BEDTIME [facility] Last Admin: 06/12/23 21:03 Dose: 10 mg Documented By: ANGELINA Dextrose (Dextrose 50 % 25 Gm/50 Ml Syringe) 25 gm IVPUSH Q15M PRN; Protocol PRN Reason: per Hypoglycemia Standing Ord. Dextrose (Dextrose 50 % 25 Gm/50 Ml Syringe) 25 gm IVPUSH Q15M PRN; Protocol PRN Reason: per Hypoglycemia Standing Ord. Empagliflozin (Empagliflozin 10 Mg Tablet) 10 mg PO DAILY [facility] Last Admin: 06/13/23 08:40 Dose: 10 mg Documented By: SHOAIB Furosemide (Furosemide 20 Mg Tablet) 20 mg PO DAILY [facility]; Protocol Last Admin: 06/13/23 08:40 Dose: 20 mg Documented By: SHOAIB Glucose (Glucose Gel 15 Gm Gel..Gram.) 15 gm PO Q15M PRN; Protocol PRN Reason: per Hypoglycemia Standing Ord. Glucose (Glucose Gel 15 Gm Gel..Gram.) 15 gm PO Q15M PRN; Protocol PRN Reason: per Hypoglycemia Standing Ord. Ceftriaxone Sodium 1 gm/ (Sodium Chloride) 50 mls @ 100 mls/hr IV Q24H [facility] Last Infusion: 06/13/23 04:57 Dose: 0 mls/hr Documented By: ANGELINA Azithromycin 500 mg/ Sodium (Chloride) 250 mls @ 125 mls/hr IV Q24H [facility] Insulin Glargine (Insulin Glargine,Hum.Rec.Anlog 100 Unit/Ml 10 Ml Vial) 10 unit SUBCUT BEDTIME [facility] Last Admin: 06/12/23 21:04 Dose: 10 unit Documented By: ANGELINA Insulin Human Lispro (Insulin Lispro 100 Unit/Ml 3 Ml Vial) 0 unit SUBCUT QIDAS [facility]; Protocol Last Admin: 06/13/23 11:36 Dose: Not Given Documented By: SHOAIB Non-Admin Reason: No Insulin Coverage Insulin Human Lispro (Insulin Lispro 100 Unit/Ml 3 Ml Vial) 0 unit SUBCUT QIDACHS [facility]; Protocol Last Admin: 06/13/23 11:36 Dose: Not Given Documented By: SHOAIB Non-Admin Reason: No Insulin Coverage Isosorbide Mononitrate (Isosorbide Mononitrate 30 Mg Tab.Er.24h) 30 mg PO BID [facility]; Protocol Last Admin: 06/13/23 08:40 Dose: 30 mg Documented By: SHOAIB Losartan Potassium (Losartan Potassium 50 Mg Tablet) 100 mg PO DAILY [facility]; Protocol Last Admin: 06/13/23 08:39 Dose: 100 mg Documented By: SHOAIB Melatonin (Melatonin 3 Mg Tablet) 6 mg PO BEDTIME PRN PRN Reason: Insomnia Metoprolol Tartrate (Metoprolol Tartrate 25 Mg Tablet) 25 mg PO BID [facility]; Protocol Last Admin: 06/13/23 08:40 Dose: 25 mg Documented By: SHOAIB Ondansetron HCl (Ondansetron Hcl 4 Mg/2 Ml Vial) 4 mg IVPUSH Q8H PRN PRN Reason: Nausea and Vomiting Pharmacy Consult (Consult Rx Perform Med Rec) 1 each MISCELLANE ONCE PRN PRN Reason: Consult order Sodium Chloride (0.9 % Sodium Chloride Flush 3 Ml Syringe) 3 ml IVFLUSH QSHIFT [facility] Last Admin: 06/13/23 08:41 Dose: 3 ml Documented By: SHOAIB Vitamin D (Cholecalciferol (Vitamin D3) 25 Mcg Tablet) 50 mcg PO DAILY [facility] Last Admin: 06/13/23 08:41 Dose: 50 mcg Documented By: SHOAIB Labs 06/12/23 05:47 06/12/23 05:47 Labs: Laboratory Results - last 24 hr 06/12/23 06/12/23 06/13/23 16:26 20:18 07:17 POC Glucose 96 147 H 113 06/13/23 11:04 POC Glucose 93 Microbiology Microbiology Results: Microbiology 06/10/23 22:46 Blood Culture - Final Blood - Venous Escherichia coli 06/11/23 00:39 Blood Culture - Preliminary Blood - Venous No growth after 48 hours. Assessment and Plan (1) Pneumonia: Status: Acute Plan 77F PMH chronic diastolic chf, paroxysmal afib, htn, hld, DM, obesity, presented with fever sepsis due to E coli bacteremia 1/2 blood cultures positive E coli sensi to ceftriaxone, gentamicin and Bactrim source unclear - ?pna - has small Left opacity on cxr, ?GI - symptoms were abdominal, some small bowel dilitation on CT, UC negative continue rocephin, azithro,X 1 day and discharged home on oral antibiotics for total 14 day treatment chronic diastolic chf no acute exacerbation continuelasix paroxysmal afib on metoprolol, eliquis htn elevated blood pressure on home med ications metoprolol, losartan, imdur DM blood sugar stable less than 150, on insulin sliding scale, Lantus insulin, and jardiance. obesity weight loss recommended hld statin dvt prophylaxis - on eliquis full code reason for continued hospitalization: IV antibiotics for E coli bacteremia. Time Spent With Patient Time: Total time managing care of this patient today ____ minutes. Quality Stroke Does the patient have a stroke diagnosis?: No VTE Prior VTE?: No VTE Risk Level:: Medical - moderate - high VTE Device Contraindication: Treatment Not Indicated VTE Drug Contraindication: N/A - Med Ordered
[2023-06-13] MEDS: cefTRIAXone sodium 2 GM in 0.9 % Sodium Chloride 50 ML IV (13:10)
--- NOTE | 2023-06-13 14:29 | MHC.CM.PN ---
per rounds still waiting for blood cultures dc plan remains home
[2023-06-13 15:59] VITALS: BP 140/64; PULSE 66; RESP 20; TEMP 36.6; O2SAT 98
[2023-06-13 16:34] LABS: Glucose, Whole Blood 94 mg/dL (60-115)
[2023-06-13 20:16] VITALS: BP 150/70; PULSE 76; RESP 16; TEMP 36.2; O2SAT 95
[2023-06-13 20:45] LABS: Glucose, Whole Blood 116 mg/dL (60-115)
[2023-06-13] MEDS: Atorvastatin Calcium 10 MG TABLET PO (20:50)
[2023-06-13] MEDS: Insulin Glargine,Hum.rec.anlog 100 UNIT/ML 10 ML VIAL 10 UNIT SUBCUT (20:51)
[2023-06-13] MEDS: Melatonin 3 MG TABLET 6 MG PO (22:00)
[2023-06-14 03:37] VITALS: BP 135/61; PULSE 57; RESP 16; TEMP 36.4; O2SAT 94
[2023-06-14] MEDS: Azithromycin 500 MG in 0.9 % Sodium Chloride 250 ML 125 MG IV (05:20)
[2023-06-14 07:36] LABS: Glucose, Whole Blood 92 mg/dL (60-115)
[2023-06-14 07:49] VITALS: BP 160/79; PULSE 65; RESP 20; TEMP 36.4; O2SAT 96
[2023-06-14] MEDS: Isosorbide Mononitrate 30 MG TAB.ER.24H PO (08:01)
[2023-06-14] MEDS: Aspirin Enteric Coated 81 MG TABLET.DR PO (08:01)
[2023-06-14] MEDS: 0.9 % Sodium Chloride Flush 3 ML SYRINGE IVFLUSH (08:01)
[2023-06-14] MEDS: Cholecalciferol (Vitamin D3) 25 MCG TABLET 50 MCG PO (08:01)
[2023-06-14] MEDS: Empagliflozin 10 MG TABLET PO (08:01)
[2023-06-14] MEDS: Furosemide 20 MG TABLET PO (08:01)
[2023-06-14] MEDS: Losartan Potassium 50 MG TABLET 100 MG PO (08:01)
[2023-06-14] MEDS: Metoprolol Tartrate 25 MG TABLET PO (08:01)
[2023-06-14] MEDS: Apixaban 5 MG TABLET PO (08:01)
[2023-06-14 11:30] LABS: Glucose, Whole Blood 103 mg/dL (60-115)
--- NOTE | 2023-06-14 12:34 | P.DS_ITS ---
DS: Providers Provider Date of Service: 06/14/23 Date of admission: 06/11/23 02:31 Primary care physician: Merry Gibson MD DS: Diagnosis Discharge Diagnosis (1) Pneumonia: Status: Acute DS: Summary Hospital Course Hospital Course: history of presenting illness Date of Service: 06/11/23 Chief Complaint: Fever This is a 77-year-old female with pertinent history of congestive heart failure with preserved ejection fraction, paroxysmal atrial fibrillation on Eliquis, essential hypertension, mixed hyperlipidemia, insulin-dependent diabetes mellitus presents to the emergency department for evaluation of fever.? Patient states it started 1 day prior to presentation.? It is associated with chills.? Patient also has productive cough that started 1 day prior to presentation.? She denies chest discomfort, palpitations, abdominal pain.? No dysuria, increased frequency or hesitancy.? Patient denies shortness of breath, changes in bowel habits In the emergency department, patient was found to be septic and imaging concerning for pneumonia. hospital course: 77F PMH chronic diastolic chf, paroxysmal afib, htn, hld, DM, obesity, presented with fever and admitted to medical floor with a diagnosis of sepsis due to? E coli bacteremia,?1/2 blood cultures positive E coli sensi to ceftriaxone, gentamicin and Bactrim, source unclear - ?pna - has small Left opacity on cxr, ? GI - symptoms were abdominal, some small bowel dilitation on CT, UA negative, patient treated with iv rocephin and azithro, since patient remains hemodynamically stable, with no fevers, no abdominal symptoms no urinary symptoms, normal WBC count she is being discharged home on Ceftin 500 mg twice daily for total 14 day treatment. chronic diastolic chf ?no acute exacerbation continue lasix paroxysmal afib continue metoprolol, eliquis htn recommend to continue all home medications ? DM type 2 on insulin noted to have stable blood sugars recommend to continue Jardiance, Trulicity and Levemir insulin use when noted to have blood sugars of 120 obesity weight loss recommended Time Spent with Patient Time attestation: Total time managing care of this patient today ____ minutes. Discharge coordination time: Greater than 30 minutes Quality: Safe Use of Opioids Does Pt have an Active Cancer Diagnosis on the Problem List?: No Quality: Stroke Does the patient have a stroke diagnosis?: No Physical Exam Vital Signs: Vital Signs: Last Vital Signs Temp 97.5 F 06/14/23 07:49 Pulse 65 06/14/23 07:49 Resp 20 06/14/23 07:49 BP 160/79 H 06/14/23 07:49 Pulse Ox 96 06/14/23 07:49 O2 Del Method Room Air 06/14/23 07:49 BMI result Body Mass Index 36.8 Const: Other: General? resting comfortably in no acute distress.? Neck? supple no JVD. CVS? regular rate rhythm, Respiratory lungs? left-sided coarse breath sounds, no respiratory distress, no wheeze, no rhonchi. Gastrointestinal abdomen soft, non tender, bowel sounds audible, no guarding , no rigidity. Extremities no edema. Neuro non focal ,speech clear. Skin no rash psych appropriate affect DS: Data Data Completed and Pending Labs on day of discharge: Laboratory Results - last 24 hr 06/13/23 06/13/23 06/14/23 16:30 20:40 07:10 POC Glucose 94 116 H 92 06/14/23 11:22 POC Glucose 103 Preliminary micro results at discharge 06/11/23 00:39 Blood Culture - Preliminary Blood - Venous No growth after 48 hours. Discharge Plan Discharge Anticipated Discharge Date/Time: 06/14/23 11:46 Patient Disposition: Home, Self-Care Discharge Diagnosis: E coli bacteremia Referrals: Po,Merry Benoit MD [Primary Care Provider] - 1 Week Discharge Medications: New cefuroxime axetil 500 mg tablet 500 mg PO BID 10 Days Qty: 20 0RF Continued (DME) PAD LINERS See Rx Instructions .Route .MEDSUPPLY Qty: 100 11RF Rx Instructions: As directed simvastatin 20 mg tablet 20 mg PO BEDTIME Qty: 90 2RF (DME) lancets [TRUEplus Lancets] 33 gauge misc See Rx Instructions .ROUTE .MEDSUPPLY Qty: 100 8RF Rx Instructions: Three times a day (DME) FreeStyle Lite Strips Strip See Rx Instructions .ROUTE .MEDSUPPLY Qty: 3 3RF Rx Instructions: As directed check the blood sugar 3 times a day losartan 100 mg tablet 100 mg PO DAILY Qty: 90 3RF (DME) pen needle, diabetic [BD Ultra-Fine Mini Pen Needle] 31 gauge x 3/16 needle See Rx Instructions .Route Qty: 100 3RF Rx Instructions: As directed injection once a day cholecalciferol (vitamin D3) 50 mcg (2,000 unit) tablet 50 mcg PO DAILY Qty: 90 3RF metoprolol tartrate 25 mg tablet 25 mg PO BID Qty: 60 5RF furosemide 20 mg tablet 20 mg PO DAILY Qty: 30 5RF Jardiance 10 mg tablet 10 mg PO DAILY Qty: 30 5RF Eliquis 5 mg tablet 5 mg PO BID Qty: 60 5RF isosorbide mononitrate 30 mg tablet extended release 24 hr 30 mg PO BID Qty: 60 5RF dulaglutide 3 mg/0.5 mL pen injector 3 mg subcut MO hydrochlorothiazide 25 mg tablet 25 mg PO DAILY (DME) T.E.D. Knee Hewiao-T-Twtd Misc See Rx Instructions .Route Qty: 2 0RF Rx Instructions: As directed (DME) FreeStyle Rickey 2 Sensor Kit See Rx Instructions .ROUTE .MEDSUPPLY Qty: 6 0RF Rx Instructions: As directed (DME) FreeStyle Rickey 2 [place] Misc See Rx Instructions .ROUTE .MEDSUPPLY Qty: 1 0RF Rx Instructions: As directed (DME) DIABETIC SHOE See Rx Instructions .Route .MEDSUPPLY Qty: 1 0RF Rx Instructions: As directed aspirin [Adult Aspirin Regimen] 81 mg tablet,delayed release (DR/EC) 81 mg PO DAILY Discontinued Levemir FlexTouch U100 Insulin 100 unit/mL (3 mL) insulin pen 20 unit subcut BEDTIME Rx Instructions: or as directed Discharge Orders: Discharge Order (Routine); Ordered 06/14/23 Ordered By: Yoandy Barreto Diet: Diabetic diet Activity on Discharge: As tolerated Stand Alone Forms: Patient Portal Discharge page Care Plan Goals: E coli bacteremia likely GI source, versus pneumonia, urinalysis unremarkable take Ceftin 500 mg 1 tablet twice daily for 10 more days stable blood sugars take Levemir 10 units only at bedtime if noted to have blood sugars greater than 120 monitor blood sugars closely if follow diabetic diet see. Health Concerns: continue all home medications Plan of Treatment: follow-up with primary care physician call for appointment Assessment: as above
--- NOTE | 2023-06-14 13:09 | MHC.CM.PN ---
IMM 06/14/23 Patient is discharged to home with resumption of [employer] services. Patient has arranged for transportation home.
== END 2023-06-14 13:05 | disposition home or self-care (01) | DRG 871 ==
LOC: HO.ED 06-11 02:37 → HO.EDOVER 06-11 03:34 → HO.S3 06-11 19:34
PROVIDERS: Internal Medicine; Admitting Provider Student in an Organized Health Care Education/Training Program; Emergency Provider Emergency Medicine; PCP Internal Medicine; Visit Provider Hospitalist
DX: A41.51 Sepsis due to Escherichia coli [E. coli] (principal); J18.9 Pneumonia, unspecified organism; I50.32 Chronic diastolic (congestive) heart failure; I48.0 Paroxysmal atrial fibrillation; E11.65 Type 2 diabetes mellitus with hyperglycemia; D64.9 Anemia, unspecified; E78.2 Mixed hyperlipidemia; E66.9 Obesity, unspecified; Z68.36 Body mass index [BMI] 36.0-36.9, adult; I11.0 Hypertensive heart disease with heart failure; Z79.01 Long term (current) use of anticoagulants; Z79.899 Other long term (current) drug therapy
CPT/HCPCS: 36415; 71045; 74176; 80048; 80053; 81001; 82947; 83605; 85025; 85027; 87040; 87077; 87186; 87205; 93005; 99285; J0456; J0696

== ENCOUNTER → 2023-06-11 00:44 | Outpatient (BNV) | payer OTHER, SELFPAY | PROVIDERS: Admitting Provider Student in an Organized Health Care Education/Training Program; Emergency Provider Emergency Medicine; Visit Provider Internal Medicine Cardiovascular Disease | DX: I45.2 Bifascicular block (principal); R94.31 Abnormal electrocardiogram [ECG] [EKG] | CPT/HCPCS: 93010 ==

== ENCOUNTER → 2023-06-11 02:31 | Outpatient (BNV) | payer OTHER, SELFPAY | PROVIDERS: Admitting Provider Student in an Organized Health Care Education/Training Program; Emergency Provider Emergency Medicine; Visit Provider Student in an Organized Health Care Education/Training Program | DX: J18.9 Pneumonia, unspecified organism (principal) | CPT/HCPCS: 99222; 99233; 99239; 99499 ==

== ENCOUNTER 2023-07-06 10:33 | Outpatient (AMB) | payer OTHER, SELFPAY ==
[2023-07-06 10:37] VITALS: BP 132/72; PULSE 61; O2SAT 95; BMI 35.4
--- NOTE | 2023-07-06 10:37 | A.OFFPC_ITS ---
Vital Signs 07/06/23 10:37 Height 5 ft 3 in Weight 200 lb 2 oz BMI 35.4 BP 132/72 Blood Pressure Location Lt brachial Position Sitting Pulse 61 Pulse Source Pulse Oximeter Pulse Oximetry (%) 95 Oxygen Delivery Method Room Air Intake [place] [facility] [place]onia and e coli Allergies No Known Allergies Allergy (Verified 07/06/23 10:50) Medication List - Last Reconciled 07/06/23 by IRASEMA Rice apixaban (Eliquis) 5 mg PO BID aspirin (Adult Aspirin Regimen) 81 mg PO DAILY blood sugar diagnostic (FreeStyle Lite Strips) As directed check the blood sugar 3 times a day cefuroxime axetil 500 mg PO BID 10 days cholecalciferol (vitamin D3) 50 mcg PO DAILY compr.stocking,knee,long,small (T.E.D. Knee Rjrgqr-C-Dqvf [facility] [place]) As directed [DIABETIC SHOE As directed] dulaglutide 3 mg subcut MO empagliflozin (Jardiance) 10 mg PO DAILY flash glucose scanning reader (FreeStyle Rickey 2 Waban) As directed flash glucose sensor (FreeStyle Rickey 2 Sensor kit) As directed furosemide 20 mg PO DAILY hydrochlorothiazide 25 mg PO DAILY insulin detemir U-100 (Levemir FlexPen) 10 units subcut BEDTIME isosorbide mononitrate ER 30 mg PO BID lancets (TRUEplus Lancets) Three times a day losartan 100 mg PO DAILY metoprolol tartrate 25 mg PO BID [PAD LINERS As directed] pen needle, diabetic (BD Ultra-Fine Mini Pen Needle) As directed injection once a day simvastatin 20 mg PO BEDTIME Tobacco use date assessed: 12/05/22 Dental Screening Dental Screen Date: 07/06/23 Did you have a dental visit in the last 12 months?: No Did you have a dental problem in the last 6 months where you did not have access to dental care?: No Was dental information given to patient?: Patient declined HPI HPI Comments History of Present Illness Details 77-year-old female past medical history significant for type 2 diabetes mellitus, hypertension, hypercholesteremia, osteoporosis and CHF. Patient of Dr. Gibson presents today for Hospital discharge follow up for pna. D/C summary Dr. Barreto: Date of Service: 06/11/23 Chief Complaint: Fever This is a 77-year-old female with pertinent history of congestive heart failure with preserved ejection fraction, paroxysmal atrial fibrillation on Eliquis, ess ential hypertension, mixed hyperlipidemia, insulin-dependent diabetes mellitus presents to the emergency department for evaluation of fever.? Patient states it started 1 day prior to presentation.? It is associated with chills.? Patient also has productive cough that started 1 day prior to presentation.? She denies chest discomfort, palpitations, abdominal pain.? No dysuria, increased frequency or hesitancy.? Patient denies shortness of breath, changes in bowel habits In the emergency department, patient was found to be septic and imaging concerning for pneumonia. ?hospital course: 77F PMH chronic diastolic chf, paroxysmal afib, htn, hld, DM, obesity, presented with fever? and admitted to medical floor with a diagnosis of sepsis due to? E coli bacteremia,?1/2 blood cultures positive E coli sensi to ceftriaxone, gentamicin and Bactrim, source unclear - ?pna - has small Left opacity on cxr, ? GI - symptoms were abdominal, some small bowel dilitation on CT,? UA negative, patient treated with iv rocephin and azithro,? since patient remains hemodynamically stable, with no fevers, no abdominal symptoms no urinary symptoms, normal WBC count she is being discharged home on Ceftin 500 mg twice daily for total 14 day treatment. chronic diastolic chf ?no acute exacerbation continue lasix paroxysmal afib continue metoprolol, eliquis htn recommend to continue all home medications ?DM type 2 on insulin noted to have stable blood sugars recommend to continue Jardiance, Trulicity and Levemir insulin use? when noted to have blood sugars of 120 obesity weight loss recommended Patient denies CP,sob, fevers and chills. Patient and home health and questioning if patient should be continuing her Levemir, patient and [employer]ING M[employer]ENDER made aware that patient should be on Levemir 10 units at bedtime for blood sugar greater than 120 in addition to her trulicity and jardiance. hgb A1c 9.9% in May DM follow A1c due in August. [facility] Medical History Anemia Breast cancer screening by mammogram Breast nodule Constipation Decompensated heart failure Dysuria Elevated cholesterol HTN (hypertension) Hyperlipidemia Myocardial injury Obesity (BMI 30-39.9) Osteopenia Pain and swelling of lower extremity Paroxysmal atrial fibrillation TIA (transient ischemic attack) Type 2 diabetes mellitus with hyperglycemia Vitamin D deficiency Yeast infection involving the vagina and surrounding area Surgical History History of appendectomy History of cyst of breast Status post right knee replacement Family History Father Diabetes Hypertension Mother No problems noted. 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 1. Little interest or pleasure in doing things: not at all 2. Feeling down, depressed, or hopeless: not at all 3. Trouble falling or staying asleep, or sleeping too much: not at all 4. Feeling tired or having little energy: not at all 5. Poor appetite or overeating: not at all 6. Feeling bad about yourself - or that you are a failure or have let yourself or your family down: not at all 7. Trouble concentrating on things, such as reading the newspaper or watching television: not at all 8. Moving or speaking so slowly that other people could have noticed. Or the opposite - being so fidgety or restless that you have been moving around a lot more than usual: not at all 9. Thoughts that you would be better off or of hurting yourself in some way: not at all Total score: 0 Depression Screening Interpretation: Negative Source: Developed by Drs. Pramod Mi, Colleen Norris, Noah Anderson and colleagues, with an educational salome from [employer]. Thrive Questionnaire Date Thrive assessed: 06/11/23 I am a: Patient What is your living situation today?: I have a steady place to live Within the past 12 months, did the food you bought not last and you didn't have the money to get more?: Never true Within the past 12 months, did you worry whether your food would run out before you got money to buy more?: Never true Currently or been in a relationship where the following occur: no concerns reported AUDIT C Alcohol Use Questionnaire (AUDIT-C) 1. How often do you have a drink containing alcohol?: Never 3. How often do you have six or more drinks on one occasion?: Never Total Score: 0 ROSEMARIE-7 AMB Questionnaire ROSEMARIE-7 Date ROSEMARIE - 7 assessed: 12/05/22 Feeling nervous, anxious, or on edge: 0 = Not at all Not being able to stop or control worryin = Not at all Worrying too much about different things: 0 = Not at all Trouble relaxin = Not at all Being so restless that it is hard to sit still: 0 = Not at all Becoming easily annoyed or irritable: 0 = Not at all Feeling afraid as if something awful might happen: 0 = Not at all Total ROSEMARIE-7 score (0-4 normal; 5-9 mild; 10-14 moderate; 15-21 severe): 0 Source: Developed by Drs. Pramod Mi, Colleen Norris, Noah Anderson and colleagues, with an educational salome from [employer]. Review of Systems Const Denies chills, Denies fatigue, Denies fever(s) and Denies poor appetite Eyes Denies no additional complaints ENT Reports Normal hearing present Card Denies chest pain, Denies syncope, Denies rapid heart rate and Denies dyspnea Resp Denies cough and Denies dyspnea GI Denies change in stool character, Denies constipation, Denies diarrhea, Denies nausea and Denies vomiting Denies urinary frequency, Denies dysuria and Denies urinary urgency Neuro Reports Normal hearing present, Denies confusion and Denies syncope Psych Denies confusion Endo Denies fatigue Physical exam (Primary Care) Vital Signs: Last Vital Signs Pulse 61 07/06/23 10:37 BP 132/72 07/06/23 10:37 Pulse Ox 95 07/06/23 10:37 Oxygen Delivery Method Room Air 07/06/23 10:37 BMI result Body Mass Index 35.4 Tobacco/Smoking Status: Tobacco use Status Tobacco use date assessed 12/05/22 07/06/23 10:43 Patient Tobacco Use Status Never used Tobacco 07/06/23 10:43 e-Cigarette/Vaping Use Never Used 07/06/23 10:43 PHQ-9: PHQ-9 Score PHQ-9: Total score 0 07/06/23 10:43 Depression Screening Interpretation: Negative Thrive Assessment: Date of Thrive Assessment Date Thrive assessed 06/11/23 07/06/23 10:43 Currently or been in a relationship where the following occur: no concerns reported Const General: No confusion Orientation/consciousness: No confusion HENMT Head: Yes normocephalic and Yes atraumatic Eyes Conjunctivae: conjunctivae normal Chest Chest palpation & inspection: normal inspection of the chest Resp Effort & Inspection: normal respiratory effort Auscultation: clear to auscultation bilaterally, no crackles, no rhonchi and no wheezes Cardio Rate: regular rate Rhythm: regular rhythm Heart sounds: S1 normal heart sound present and S2 normal heart sound present GI Inspection: Yes normal to inspection Neuro General: No confusion Cranial nerves: Yes Normal hearing present Extrem General: No edema Assessment and Plan Assessment & Plan (1) Hospital discharge follow-up: Code(s): Z09 - Encounter for follow-up examination after completed treatment for conditions other than malignant neoplasm (2) Pneumonia: Code(s): J18.9 - Pneumonia, unspecified organism (3) CHF (congestive heart failure): Code(s): I50.9 - Heart failure, unspecified Plan: Continue on Lasix 20 mg daily. (4) Paroxysmal atrial fibrillation: Code(s): I48.0 - Paroxysmal atrial fibrillation Plan: Continue on Eliquis for anticoagulation and metoprolol 25 mg b.i.d. for rate control. (5) HTN (hypertension): Code(s): I10 - Essential (primary) hypertension Qualifiers: Hypertension type: essential hypertension Qualified Code(s): I10 - Ess ential (primary) hypertension Plan: Continue on current medications. Follow low salt diet and excercise. (6) Type 2 diabetes mellitus with hyperglycemia: Comment: Dr. 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 Patient educated to decrease the amount of carbohydrate intake such as pasta, bread, rice and potatoes are all sugar in addition to the sweet stuff. Remember that fruits are good but they also have sugar.Hemoglobin A1c goal of less than 7.0% Plan Keep scheduled follow up with pcp in 2 months Medications: Discontinued dulaglutide 3 mg (0.5 mL) subcut QWEEK 90 days 6.5 mL 2RF E11.65 - Type 2 diabetes mellitus with hyperglycemia azithromycin For 250 mg dose pack: take 500 mg today (day 1), then 250 mg for 4 days (days 2-5) PO 6 tabs 0RF insulin detemir U-100 or as directed 40 units (0.4 mL) subcut BEDTIME 12 mL 3RF E11.65 - Type 2 diabetes mellitus with hyperglycemia Coding Level of Care Code Est Pt Level 4 (40255) Diagnoses Hospital discharge follow-up Z09 Pneumonia J18.9 CHF (congestive heart failure) I50.9 Paroxysmal atrial fibrillation I48.0 HTN (hypertension) I10 Hypertension type: essential hypertension Type 2 diabetes mellitus with hyperglycemia E11.65; Z79.4 Diabetes mellitus nursing home insulin use: with rn long term care use Additional Codes PHQ-9 - 27926 - PHQ-9 Billing: Y ([id number])
== END 2023-07-06 11:06 | disposition home or self-care (01) ==
PROVIDERS: PCP Internal Medicine; Visit Provider Nurse Practitioner Family
DX: E11.65 Type 2 diabetes mellitus with hyperglycemia (principal); Z79.4 Long term (current) use of insulin; I11.0 Hypertensive heart disease with heart failure; I50.9 Heart failure, unspecified; J18.9 Pneumonia, unspecified organism; I48.0 Paroxysmal atrial fibrillation
CPT/HCPCS: 99214

== ENCOUNTER 2023-07-11 14:51 | Outpatient (REF) | payer OTHER, SELFPAY ==
--- NOTE | ~2023-07-11 | MM_ITS ---
EXAMINATION: MM DIAGNOSTIC DIGITAL BREAST TOMOSYNTHESIS, LEFT CLINICAL INFORMATION: Second six-month Follow-up left breast calcifications, and associated left breast density. History of left breast lumpectomy. COMPARISON: Mammography: 11/21/2022, 06/19/2022, 09/09/2020, and dating back to 2014. TECHNIQUE: Digital left breast tomosynthesis is performed in both the craniocaudal and mediolateral oblique views along with computer-aided detection (CAD). Synthesized 2D images are generated from the tomosynthesis. In addition, a full-field left 90 degree mediolateral 3-D view was obtained, as well as 2-D spot magnification left CC and mediolateral views. FINDINGS: There are scattered areas of fibroglandular density (ACR BI-RADS breast composition Category b). There is similar architectural distortion in the left breast secondary to prior lumpectomy scarring. Within the 6:00 axis of the left breast, there are grouped calcifications within underlying density, possibly representing a degenerating fibroadenoma, although other etiologies are not excluded. Calcifications are largely round and punctate, with one possible layering calcification seen inferiorly on the MLO spot magnification view. Continued six-month interval follow-up recommended as these remain probably benign. There is an unchanged focal asymmetry in the 11:00 to 12:00 axis of the left breast, middle one third, likely representing probably benign postoperative scarring. This should be followed in 6 months when the patient is due for bilateral screening examination. MM/MM tomosynthesis diagnostic LT IMPRESSION: Probably benign calcifications left breast 6:00 axis, for which six-month interval follow-up spot magnification views are recommended. Probably benign focal asymmetry in the 11-12 o'clock axis left breast, middle one third, likely representing post operative scarring from prior lumpectomy. This can be re-evaluated in 6 months when the patient is due for bilateral screening. ASSESSMENT: BI-RADS BI-RADS 3 - Probably benign finding(s) - 6 month follow-up suggested RECOMMENDATION: 6 Month F/U Results were provided to the patient at time of visit by the technologist. This patient's information was entered into a reminder system with a target due date for their next mammogram.
== END 2023-07-11 14:52 | disposition home or self-care (01) ==
LOC: HO.MAMMO 14:51
PROVIDERS: PCP Internal Medicine; Visit Provider Internal Medicine
DX: R92.1 Mammographic calcification found on diagnostic imaging of breast (principal)
CPT/HCPCS: 77061; 77065

== ENCOUNTER → 2023-07-11 15:00 | Outpatient (BNV) | payer OTHER, SELFPAY | PROVIDERS: PCP Internal Medicine; Visit Provider Radiology Diagnostic Radiology | DX: N63.20 Unspecified lump in the left breast, unspecified quadrant (principal) | CPT/HCPCS: 77061; 77065 ==

== ENCOUNTER 2023-09-18 09:14 | Outpatient (AMB) | payer OTHER, SELFPAY ==
[2023-09-18 09:18] VITALS: BP 130/74; PULSE 65; O2SAT 97; BMI 36.0
--- NOTE | 2023-09-18 09:18 | MHC.PC.OV ---
Vital Signs 09/18/23 09:18 Height 5 ft 3 in Weight 203 lb BMI 36.0 BP 130/74 Blood Pressure Location Lt brachial Position Sitting Pulse 65 Pulse Source Pulse Oximeter Pulse Oximetry (%) 97 Oxygen Delivery Method Room Air Intake Visit Reasons: CAD, DM Allergies No Known Allergies Allergy (Verified 09/18/23 09:19) Medication List - Last Reconciled 09/18/23 by Merry Gibson MD apixaban (Eliquis) 5 mg PO BID aspirin (Adult Aspirin Regimen) 81 mg PO DAILY blood sugar diagnostic (FreeStyle Lite Strips) As directed check the blood sugar 3 times a day cholecalciferol (vitamin D3) 50 mcg PO DAILY compr.stocking,knee,long,small (T.E.D. Knee Jghmpu-[id number] misc) As directed [DIABETIC SHOE As directed] dulaglutide 3 mg subcut MO empagliflozin (Jardiance) 10 mg PO DAILY flash glucose scanning reader ([employer] Rickey 2 [place]) As directed flash glucose sensor (FreeStyle Rickey 2 Sensor kit) As directed furosemide 20 mg PO DAILY hydrochlorothiazide 25 mg PO DAILY insulin detemir U-100 (Levemir FlexPen) 10 units (0.1 mL) subcut BEDTIME isosorbide mononitrate ER 30 mg PO BID lancets (TRUEplus Lancets) Three times a day losartan 100 mg PO DAILY metoprolol tartrate 25 mg PO BID [PAD LINERS As directed] pen needle, diabetic (BD Ultra-Fine Mini Pen Needle) As directed injection once a day simvastatin 20 mg PO BEDTIME Tobacco use date assessed: 12/05/22 Fall risk assessment: No Falls in past year Last assessed Fall Risk: 09/18/23 Dental Screening Dental Screen Date: 09/18/23 Did you have a dental visit in the last 12 months?: No Did you have a dental problem in the last 6 months where you did not have access to dental care?: No Was dental information given to patient?: Patient has dentist HPI CAD, DM HPI Details 78-year-old obese female with controlled diabetes mellitus atrial fibrillation hypertension congestive heart failure coming in for follow-up. Last seen in June 2023 after hospital discharge for pneumonia.. Review of the notes. Patient had a CT coronary done June 2023 showing no evidence of hemodynamically significant coronary artery disease noted 4 mm left lower lobe nodule and 5 mm nodule in the right upper lobe of the lung [facility] Medical History Anemia Breast cancer screening by mammogram Breast nodule Constipation Decompensated heart failure Dysuria Elevated cholesterol HTN (hypertension) Hyperlipidemia Myocardial injury Obesity (BMI 30-39.9) Osteopenia Pain and swelling of lower extremity Paroxysmal atrial fibrillation TIA (transient ischemic attack) Type 2 diabetes mellitus with hyperglycemia Vitamin D deficiency Yeast infection involving the vagina and surrounding area Surgical History History of appendectomy History of cyst of breast Status post right knee replacement Family History Father Diabetes Hypertension Mother No problems noted. 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 1. Little interest or pleasure in doing things: not at all 2. Feeling down, depressed, or hopeless: not at all 3. Trouble falling or staying asleep, or sleeping too much: not at all 4. Feeling tired or having little energy: not at all 5. Poor appetite or overeating: not at all 6. Feeling bad about yourself - or that you are a failure or have let yourself or your family down: not at all 7. Trouble concentrating on things, such as reading the newspaper or watching television: not at all 8. Moving or speaking so slowly that other people could have noticed. Or the opposite - being so fidgety or restless that you have been moving around a lot more than usual: not at all 9. Thoughts that you would be better off or of hurting yourself in some way: not at all Total score: 0 Depression Screening Interpretation: Negative Depression Screening Done: Yes Source: Developed by Drs. Pramod Mi, Colleen Norris, Noah Anderson and colleagues, with an educational salome from [employer]. Thrive Questionnaire Date Thrive assessed: 06/11/23 AUDIT C Alcohol Use Questionnaire (AUDIT-C) 1. How often do you have a drink containing alcohol?: Never 3. How often do you have six or more drinks on one occasion?: Never Total Score: 0 ROSEMARIE-7 AMB Questionnaire ROSEMARIE-7 Date ROSEMARIE - 7 assessed: 12/05/22 Source: Developed by Drs. Pramod Mi, Noah Painter and colleagues, with an educational salome from [employer]. Physical exam (Primary Care) Vital Signs: Last Vital Signs Pulse 65 09/18/23 09:18 BP 130/74 09/18/23 09:18 Pulse Ox 97 09/18/23 09:18 Oxygen Delivery Method Room Air 09/18/23 09:18 BMI result Body Mass Index 36.0 Tobacco/Smoking Status: Tobacco use Status Tobacco use date assessed 12/05/22 09/18/23 09:20 Patient Tobacco Use Status Never used Tobacco 09/18/23 09:20 e-Cigarette/Vaping Use Never Used 09/18/23 09:20 PHQ-9: PHQ-9 Score PHQ-9: Total score 0 09/18/23 19:34 Depression Screening Interpretation: Negative Thrive Assessment: Date of Thrive Assessment Date Thrive assessed 06/11/23 09/18/23 09:20 Const General: alert; No acute distress Eyes Conjunctivae: conjunctivae normal Resp Auscultation: clear to auscultation bilaterally Cardio Rate: regular rate Rhythm: regular rhythm GI Inspection: Yes normal to inspection Extrem General: Yes normal to inspection and No edema Office Procedures Flu Questionnaire Does the patient have a severe egg allergy?: No Does the patient have severe life threatening allergies?: No Does the patient have a fever or illness today?: No Has the patient ever had Guillain-Freeland Syndrome?: No Has the patient ever had any past reaction to a flu shot?: No Results AMB Hemoglobin A1c AMB Hemoglobin A1c 5.7 % Last Edit by Emmanuelle Gallegos CMA on 09/18/23 09:51 Immunizations flu vacc [id number] 6mos up(PF) 60 mcg(15 mcgx4)/0.5 mL IM syringe Performing Provider: Merry Gibson MD [facility] Administered by: Emmanuelle Gallegos CMA on 09/18/23 09:48 Dose Route Admin Location Dispensed Lot Number Expiration Date NDC Supervisor Area 0.5 mL IM Left Deltoid 0.5 mL [id number] 05/18/24 [id number] [employer] VIS Given Date VIS Provided VIS Publication Date 09/18/23 Single Vaccine 21 Eligibility Eligibility Date Funding Source Not VFC Eligible 09/18/23 Private Results Reviewed Results Reviewed: Laboratory Last Values Hgb A1c (Clinic) 5.7 % (4.0-6.0) 09/18/23 09:18 Assessment and Plan Assessment & Plan (1) Type 2 diabetes mellitus with hyperglycemia: Comment: Dr. Galo Code(s): E11.65 - Type 2 diabetes mellitus with hyperglycemia Qualifiers: Diabetes mellitus care home insulin use: with termite inspector use Qualified Code(s): E11.65 - Type 2 diabetes mellitus with hyperglycemia; Z79.4 - remote computer terminal operator (current) use of insulin Plan: Decrease the amount of carbohydrate intake, pasta, bread, rice and potatoes are all sugar and that is aside from all the sweet stuff, remember that fruits are good but they are Sweet also. Hemoglobin A1c goal of less than 7.0. Patient on Levemir 10 units at bedtime Jardiance 10 mg once a day Trulicity 3 mg once a week (2) HTN (hypertension): Code(s): I10 - Essential (primary) hypertension Qualifiers: Hypertension type: essential hypertension Qualified Code(s): I10 - Essential (primary) hypertension Plan: Continue with blood pressure medication. Decrease salt intake and exercise patient takes hydrochlorothiazide 25 mg once a day losartan 100 mg once a day and metoprolol 25 mg twice a day (3) Elevated cholesterol: Code(s): E78.00 - Pure hypercholesterolemia, unspecified Plan: Avoid fried foods, chicken skin, eggs, butter margarine, pastries and meat. Be it pork or beef they have a lot of cholesterol LDL goal of less than 100 and triglyceride of less than 150 (4) Obesity (BMI 30-39.9): Code(s): E66.9 - Obesity, unspecified Plan: Diet and exercise (5) Paroxysmal atrial fibrillation: Code(s): I48.0 - Paroxysmal atrial fibrillation Plan: Continue with anticoagulation (6) CHF (congestive heart failure): Code(s): I50.9 - Heart failure, unspecified Plan: Weigh daily continue with diuretics Orders: Orders AMB Hemoglobin A1c Today Z13.9 - Encounter for screening, unspecified Influenza [id number] Immunization Today Z23 - Encounter for immunization Coding Level of Care Code Est Pt Level 4 (89108) Diagnoses Type 2 diabetes mellitus with hyperglycemia, with long-term current use of insulin E11.65; Z79.4 Diabetes mellitus termite inspector insulin use: with termite inspector use Essential hypertension I10 Hypertension type: essential hypertension Elevated cholesterol E78.00 Obesity (BMI 30-39.9) E66.9 Paroxysmal atrial fibrillation I48.0 CHF (congestive heart failure) I50.9 Additional Codes PHQ-9 - 27375 - PHQ-9 Billing: ([id number])
== END 2023-09-18 10:20 | disposition home or self-care (01) ==
PROVIDERS: PCP Internal Medicine; Visit Provider Internal Medicine
DX: Z23 Encounter for immunization (principal); E11.65 Type 2 diabetes mellitus with hyperglycemia; Z79.4 Long term (current) use of insulin; I11.0 Hypertensive heart disease with heart failure; I50.9 Heart failure, unspecified; I48.0 Paroxysmal atrial fibrillation
CPT/HCPCS: 83036; 90471; 90686; 99214

== ENCOUNTER 2023-12-06 09:30 | Outpatient (REF) | payer OTHER, SELFPAY ==
[2023-12-06 09:59] LABS: MANUAL DIFF FLAG NO
[2023-12-06 10:32] LABS: Appearance Urine Clear; Color Urine Yellow; Glucose Urine UA >=1000 mg/dL (Negative); Leukocyte Esterase Urine Small (1+) (Negative); Nitrite Urine Negative (Negative); PH 5.5 (5.0-9.0); Specific Gravity - Urine 1.025 (1.005-1.025); UMIC TRIGGER UACC YES; Urine Blood Negative (Negative); Urine Ketones Negative (Negative); Urine Protein Negative (Neg-Trace)
[2023-12-06 10:41] LABS: Bacteria Urine 4+ (None Seen); Hyaline Casts Urine 0-2 /LPF (0-2); RBC Urine 0-2 /HPF (0-2); UACC Culture Trigger YES
[2023-12-06 10:43] LABS: Basophils Absolute Auto 0.1 X10*3/uL (0.0-0.2); Basophils Percent Auto 1.1 % (0-2); Eosinophils Absolute Auto 0.2 X10*3/uL (0.0-0.4); Eosinophils Percent Auto 2.9 % (0-4); Hematocrit 38.6 % (37.0-47.0); Hemoglobin 12.1 g/dl (12.0-16.0); Imm Gran Abs Auto 0.01 X10*3/uL (0.00-0.03); Imm Gran Pct Auto 0.2 % (0.0-0.4); Immature Retic Fraction 9.9 % (3.0-15.9); Lymphocytes Absolute Auto 1.7 X10*3/uL (1.2-4.9); Lymphocytes Percent Auto 31.3 % (20-40); Mean Corpuscular HGB Conc 31.3 g/dl (31.0-35.0); Mean Corpuscular Hemoglobin 27.9 pg (27.0-33.0); Mean Corpuscular Volume 89.1 fL (80.0-98.0); Mean Platelet Volume 12.1 fL (9.4-12.3); Monocytes Absolute Auto 0.5 X10*3/uL (0.1-1.2); Monocytes Percent Auto 9.3 % (2-11); Neutrophils Percent Auto 55.2 % (45-73); Platelet Count 199 X10*3/uL (160-400); Red Blood Count 4.33 X10*6/uL (4.20-5.50); Red Cell Distribution Width 14.5 % (11.0-16.0); Retic HGB Equivalent 31.5 pg (30.0-35.0); Reticulocyte Percent 1.5 % (0.5-1.8); Reticulocytes Absolute 0.066 X10*6/uL (0.026-0.095); White Blood Count 5.5 X10*3/uL (4.8-10.8)
[2023-12-06 11:13] LABS: B Type Natriuretic Peptide 191 pg/mL (<100)
[2023-12-06 11:20] LABS: Alanine Aminotransferase 15 U/L (0-31); Alkaline Phosphatase 81 U/L (39-117); Anion Gap 11 (12-20); Aspartate Amino Transferase 21 U/L (5-31); Bilirubin Total 0.4 mg/dL (0.0-1.0); Blood Urea Nitrogen 22 mg/dL (9-16); Calcium 10.4 mg/dL (8.4-10.2); Carbon Dioxide 27 mmol/L (22-29); Chloride 108 mmol/L (96-108); Cholesterol 184 mg/dL (<200); Estimated Glomerular Filt Rate > 60; Glucose Random 112 mg/dL (60-115); HDL Cholesterol 54 mg/dL (>40); Iron 57 mcg/dL (30-160); LDL Cholesterol Calculated 108 mg/dL (<100); Percent Iron Saturation 20 % (15-50); Phosphorus 2.8 mg/dL (2.7-4.5); Potassium 4.3 mmol/L (3.3-5.1); Sodium 142 mmol/L (135-145); Total Iron Binding Capacity 282 mcg/dL (228-428); Total Protein 7.5 g/dL (6.5-8.0); Triglycerides 110 mg/dL (<150); Unsaturated Iron Binding 225 ug/dL
[2023-12-06 11:26] LABS: Creatinine Urine 88.24 mg/dL; Microalbum/Creatinine Ratio Ur 65.7 ug/mg cr (<30)
[2023-12-06 11:43] LABS: Ferritin 16 ng/mL (10-250); Free T4 (Free Thyroxine) 0.98 ng/dL (0.71-1.85); Thyroid Stimulating Hormone 1.84 uIU/mL (0.32-4.0)
[2023-12-06 11:46] LABS: Folate 7.4 ng/mL (> or = 4.0); Vitamin B12 251 pg/mL (200-900)
== END 2023-12-06 09:31 | disposition home or self-care (01) ==
LOC: HO.LAB 09:30
PROVIDERS: PCP Internal Medicine; Visit Provider Internal Medicine
DX: E11.65 Type 2 diabetes mellitus with hyperglycemia (principal); I50.9 Heart failure, unspecified; I48.0 Paroxysmal atrial fibrillation; E78.00 Pure hypercholesterolemia, unspecified
CPT/HCPCS: 36415; 80053; 80061; 81001; 82043; 82570; 82607; 82728; 82746; 83540; 83735; 83880; 84100; 84439; 84443; 85025; 85045; 87086; 87088; 87186

== ENCOUNTER 2023-12-27 09:29 | Outpatient (AMB) | payer OTHER, SELFPAY ==
[2023-12-27 09:34] VITALS: BP 130/68; PULSE 64; O2SAT 97; BMI 36.7
--- NOTE | 2023-12-27 09:34 | MHC.PC.OV ---
Vital Signs 12/27/23 09:34 Height 5 ft 3 in Weight 207 lb BMI 36.7 BP 130/68 Blood Pressure Location Lt brachial Position Sitting Pulse 64 Pulse Source Pulse Oximeter Pulse Oximetry (%) 97 Oxygen Delivery Method Room Air Intake Visit Reasons: DM Intake Note: Patient is here to follow up on DM Rebar Worker Required: No Allergies No Known Allergies Allergy (Verified 12/27/23 09:35) Medication List - Last Reconciled 12/27/23 by Merry Gibson MD apixaban (Eliquis) 5 mg PO BID aspirin (Adult Aspirin Regimen) 81 mg PO DAILY blood sugar diagnostic (FreeStyle Lite Strips) TEST BLOOD SUGAR THREE TIMES DAILY cholecalciferol (vitamin D3) 50 mcg PO DAILY compr.stocking,knee,long,small (T.E.D. Knee [facility] [place]) As directed [DIABETIC SHOE As directed] dulaglutide 3 mg subcut MO empagliflozin (Jardiance) 10 mg PO DAILY flash glucose scanning reader (FreeStyle Rickey 2 [place]) As directed flash glucose sensor (FreeStyle Rickey 2 Sensor kit) As directed furosemide 20 mg PO DAILY hydrochlorothiazide 25 mg PO DAILY insulin detemir U-100 (Levemir FlexPen) 10 units (0.1 mL) subcut BEDTIME isosorbide mononitrate ER 30 mg PO BID lancets (Unilet Lancet) TEST BLOOD SUGAR THREE TIMES DAILY losartan 100 mg PO DAILY metoprolol tartrate 25 mg PO BID [PAD LINERS As directed] pen needle, diabetic (BD Ultra-Fine Mini Pen Needle) As directed injection once a day simvastatin 20 mg PO BEDTIME Tobacco use date assessed: 12/27/23 Fall risk assessment: No Falls in past year Last assessed Fall Risk: 12/27/23 Dental Screening Dental Screen Date: 12/27/23 HPI DM HPI Details 78-year-old obese female with diabetes mellitus hypertension hypercholesterolemia atrial fibrillation and congestive heart failure last seen in August 2023. Patient's colonoscopy was done in August 2020 mammogram up-to-date bone density is due. Patient is here for follow-up. June CT coronary showing no evidence of hemodynamically significant coronary artery disease noted pulmonary nodule on the right upper lobe 4 mm left lobe 5 mm right upper lobe this was done in June 2023 100 [id number] ([id number]) PAtient is checking BP at home BP is high 140-160/69-89. PAteint wdid not have any HCTZ for the BP.. On further reading on the notes post discharge in May that hydrochlorothiazide was never stop. [facility] Medical History Anemia Breast cancer screening by mammogram Breast nodule Constipation Decompensated heart failure Dysuria Elevated cholesterol HTN (hypertension) Hyperlipidemia Myocardial injury Obesity (BMI 30-39.9) Osteopenia Pain and swelling of lower extremity Paroxysmal atrial fibrillation TIA (transient ischemic attack) Type 2 diabetes mellitus with hyperglycemia Vitamin D deficiency Yeast infection involving the vagina and surrounding area Surgical History History of appendectomy History of cyst of breast Status post right knee replacement Family History Father Diabetes Hypertension Mother No problems noted. 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 Housing: Apartment Unable to assess alcohol history related to: Unable to respond Alcohol intake: never Comment: family stays with patient Patient Tobacco Use Status: Never used Tobacco e-Cigarette/Vaping Use: Never Used Second Hand Smoke Exposure: No service: No Current occupational status: retired Cognitive needs: No Hearing needs: No Vision needs: Yes Questionnaire Thrive Questionnaire Date Thrive assessed: 06/11/23 I am a: Patient What is your living situation today?: I have a steady place to live Within the past 12 months, did the food you bought not last and you didn't have the money to get more?: Never true Within the past 12 months, did you worry whether your food would run out before you got money to buy more?: Never true Do you have trouble paying for medicines?: No Do you have trouble getting transportation to medical appointments?: No Do you have trouble paying your heating and electricity bill?: No Do you have trouble taking care of your child, family member or friend?: No Do you have trouble with day-to-day activities such as bathing, preparing meals, shopping, managing finances, etc.?: No Are you currently unemployed and looking for a job?: No Are you interested in more education?: No Please select the resources that you would like help with: None THRIVE Score: 0 AUDIT C Alcohol Use Questionnaire (AUDIT-C) 1. How often do you have a drink containing alcohol?: Never 3. How often do you have six or more drinks on one occasion?: Never Total Score: 0 ROSEMARIE-7 AMB Questionnaire ROSEMARIE-7 Date ROSEMARIE - 7 assessed: 12/27/23 Source: Developed by Drs. Pramod Mi, Colleen Norris, Noah Anderson and colleagues, with an educational salome from [employer] [facility]. Physical exam (Primary Care) Vital Signs: Last Vital Signs Pulse 64 12/27/23 09:34 BP 130/68 12/27/23 09:34 Pulse Ox 97 12/27/23 09:34 Oxygen Delivery Method Room Air 12/27/23 09:34 BMI result Body Mass Index 36.7 Tobacco/Smoking Status: Tobacco use Status Tobacco use date assessed 12/27/23 12/27/23 09:35 Patient Tobacco Use Status Never used Tobacco 12/27/23 09:35 e-Cigarette/Vaping Use Never Used 12/27/23 09:35 Thrive Assessment: Date of Thrive Assessment Date Thrive assessed 06/11/23 12/27/23 09:35 Const General: alert; No acute distress Eyes Conjunctivae: conjunctivae normal Resp Auscultation: clear to auscultation bilaterally Cardio Rate: regular rate Rhythm: regular rhythm GI Inspection: Yes normal to inspection Extrem General: Yes normal to inspection and No edema Results AMB Hemoglobin A1c AMB Hemoglobin A1c 6.6 % Last Edit by RENE Perkins on 12/27/23 09:47 Assessment and Plan Assessment & Plan (1) Type 2 diabetes mellitus with hyperglycemia: Comment: Dr. Galo Code(s): E11.65 - Type 2 diabetes mellitus with hyperglycemia Qualifiers: Diabetes mellitus [facility] insulin use: with predatory animal exterminator use Qualified Code(s): E11.65 - Type 2 diabetes mellitus with hyperglycemia; Z79.4 - watermelon inspector (current) use of insulin Plan: Decrease the amount of carbohydrate intake, pasta, bread, rice and potatoes are all sugar and that is aside from all the sweet stuff, remember that fruits are good but they are Sweet also. Hemoglobin A1c goal of less than 7.0 presently on Trulicity 3 mg once a week Jardiance 10 mg once a day Levemir 10 units at bedtime (2) HTN (hypertension): Code(s): I10 - Essential (primary) hypertension Qualifiers: Hypertension type: essential hypertension Qualified Code(s): I10 - Essential (primary) hypertension Plan: Continue with blood pressure medication. Decrease salt intake and exercise patient takes metoprolol 25 mg twice a day losartan 100 mg once a day, hydrochlorothiazide 25 mg once a day. On review of medication patient has not been taking the hydrochlorothiazide. Discussed that the chart post discharge in May continues to be on that medication that was never stop. (3) Elevated cholesterol: Code(s): E78.00 - Pure hypercholesterolemia, unspecified Plan: Avoid fried foods, chicken skin, eggs, butter margarine, pastries and meat. Be it pork or beef they have a lot of cholesterol LDL goal of less than 100 and triglyceride of less than 150 presently on simvastatin 20 mg once a day (4) Obesity (BMI 30-39.9): Code(s): E66.9 - Obesity, unspecified Plan: Diet and exercise (5) Osteoporosis: Comment: November 2021 Code(s): M81.0 - Age-related osteoporosis without current pathological fracture Plan: one density discussed the need for follow-up bone density (6) Paroxysmal atrial fibrillation: Code(s): I48.0 - Paroxysmal atrial fibrillation Plan: Continue with anticoagulation on Eliquis (7) Pulmonary nodule 1 cm or greater in diameter: Comment: 1.1 cm pulmonary nodule June 2023 Code(s): R91.1 - Solitary pulmonary nodule Plan: June 2023 patient is a nonsmoker. No follow-up needed (8) Vitamin B 12 deficiency: Code(s): E53.8 - Deficiency of other specified B group vitamins Orders: Orders AMB Hemoglobin A1c Today E11.65 - Type 2 diabetes mellitus with hyperglycemia Hemoglobin A1c 3 Months E11.65 - Type 2 diabetes mellitus with hyperglycemia, Z79.4 - correction (current) use of insulin Lipid Panel 3 Months E78.00 - Pure hypercholesterolemia, unspecified XR DEXA axial skeleton Today M81.0 - Age-related osteoporosis without current pathological fracture Medications: Changed From simvastatin 20 mg PO BEDTIME 90 tabs 2RF E78.00 - Pure hypercholesterolemia, unspecified To simvastatin 40 mg PO BEDTIME 30 tabs 4RF 30 days E78.00 - Pure hypercholesterolemia, unspecified Refilled hydrochlorothiazide 25 mg PO DAILY 90 tabs 1RF E11.65 - Type 2 diabetes mellitus with hyperglycemia, Z79.4 - watermelon inspector (current) use of insulin Coding Level of Care Code Est Pt Level 4 (80137) Diagnoses Type 2 diabetes mellitus with hyperglycemia, with long-term current use of insulin E11.65; Z79.4 Diabetes mellitus [facility] insulin use: with [facility] use Essential hypertension I10 Hypertension type: essential hypertension Elevated cholesterol E78.00 Obesity (BMI 30-39.9) E66.9 Osteoporosis M81.0 Paroxysmal atrial fibrillation I48.0 Pulmonary nodule 1 cm or greater in diameter R91.1 Vitamin B 12 deficiency E53.8
== END 2023-12-27 10:14 | disposition home or self-care (01) ==
PROVIDERS: PCP Internal Medicine; Visit Provider Internal Medicine
DX: E11.65 Type 2 diabetes mellitus with hyperglycemia (principal); Z79.4 Long term (current) use of insulin; E66.9 Obesity, unspecified; Z68.36 Body mass index [BMI] 36.0-36.9, adult; I48.0 Paroxysmal atrial fibrillation; I10 Essential (primary) hypertension; E78.00 Pure hypercholesterolemia, unspecified; M81.0 Age-related osteoporosis without current pathological fracture; R91.1 Solitary pulmonary nodule; E53.8 Deficiency of other specified B group vitamins
CPT/HCPCS: 83036; 99214

== ENCOUNTER → 2024-01-25 11:00 | Outpatient (BNV) | payer OTHER, SELFPAY | PROVIDERS: PCP Internal Medicine; Visit Provider Radiology Diagnostic Radiology | DX: R92.1 Mammographic calcification found on diagnostic imaging of breast (principal); N60.02 Solitary cyst of left breast; N64.89 Other specified disorders of breast | CPT/HCPCS: 77066; G0279 ==

== ENCOUNTER 2024-01-25 11:02 | Outpatient (REF) | payer OTHER, SELFPAY ==
--- NOTE | ~2024-01-25 | MM_ITS ---
EXAMINATION: MM DIAGNOSTIC DIGITAL BREAST TOMOSYNTHESIS, BILATERAL CLINICAL INFORMATION: Third 6 month follow-up for left breast probably benign calcifications, and asymmetry left breast upper outer quadrant likely related to scar from prior lumpectomy. COMPARISON: Mammography: 07/11/2023, 12/22/2022, 06/19/2022, 09/09/2020, and dating back to 2014. ULTRASOUND: 06/19/2022, 12/01/2021. TECHNIQUE: Digital breast tomosynthesis is performed in both the craniocaudal and mediolateral oblique views along with computer-aided detection (CAD). Synthesized 2D images are generated from the tomosynthesis. In addition to standard views, 2-D spot magnification left CC and ML views were obtained of the left breast. FINDINGS: There are scattered areas of fibroglandular density (ACR BI-RADS breast composition Category b). There is similar architectural distortion in the left breast secondary to prior lumpectomy scarring. Within the 6:00 axis of the left breast, there are grouped calcifications within underlying density, possibly representing a degenerating fibroadenoma, although other etiologies are not excluded. Calcifications are largely round and punctate, with one possible layering calcification seen inferiorly on the MLO spot magnification view. There are associated with an underlying oval mass, which appears to represent a complicated cyst on prior breast ultrasound. Continued six-month interval follow-up recommended to establish two-year stability, utilizing standard spot magnification views, as these remain probably benign. Again noted is an unchanged focal asymmetry in the 11:00 to 12:00 axis of the left breast, middle one third, likely representing similar postoperative scarring. This remains probably benign. This should be followed in 6 months when the left breast is followed for above calcifications. Recommend spot compression views in the CC and ML projections. MM/MM tomosynthesis diagnostic BI IMPRESSION: There are no findings suspicious for malignancy left breast. Stable probably benign findings related to 6:00 calcifications, likely within a complicated cyst, and parenchymal scarring in the upper outer quadrant anterior one third left breast. Six-month follow-up of both abnormalities recommended as detailed above. There are no new abnormalities left breast. ASSESSMENT: BI-RADS BI-RADS 3 - Probably benign finding(s) - 6 month follow-up suggested RECOMMENDATION: 6 Month F/U Results were provided to the patient at time of visit by the technologist. This patient's information was entered into a reminder system with a target due date for their next mammogram.
--- NOTE | ~2024-01-25 | MM_ITS ---
EXAMINATION: BONE DENSITOMETRY CLINICAL INDICATION: Age-related osteoporosis without current pathological fracture. COMPARISON: Previous BD dated 11/25/2021 and baseline BD dated 01/21/2010. TECHNIQUE: Using a [employer] DXA System (software version: 13.1) manufactured by [employer], dual-energy x-ray absorptiometry was performed of the lumbar spine and left hip. The images are of good technical quality. Summary results are attached. FINDINGS: LEFT FEMUR, NECK: Current: BMD 0.594 g/cm2, Z-score -1.9, T-score -3.2, osteoporosis. Prior: BMD 0.694 g/cm2. Baseline: BMD 0.897 g/cm2. LEFT FEMUR, TOTAL: Current: BMD 0.646 g/cm2, Z-score -1.8, T-score -2.9, osteoporosis, 9.7% decrease from previous, 34.5% decrease from baseline (<5% change is not significant). Prior: BMD 0.715 g/cm2. Baseline: BMD 0.987 g/cm2. AP SPINE L1-L4 (excluding L3): The data of L1-L4 has been changed to exclude the L3 vertebral body, because degenerative sclerosis at this level may cause overestimation of lumbar spine density. Current: BMD 0.954 g/cm2, Z-score -1.0, T-score -1.8, osteopenia, 9.7% decrease from previous, 10.6% decrease from baseline (<5% change is not significant). Prior: BMD 1.057 g/cm2. Baseline: BMD 1.067 g/cm2. IDENTIFIED RISK FACTORS: Early menopause, dementia, history of fracture (adult), recurrent falls, secondary osteoporosis. HISTORY OF FRACTURE: Other. MEDICATIONS: Vitamin D. MM/XR DEXA axial skeleton IMPRESSION: 1. DIAGNOSIS: Osteoporosis based on the lowest T-score value of -3.2 in the femoral neck applying World Health Organization criteria. 2. 10-YEAR FRACTURE RISK PREDICTION, FRAX: According to the guidelines, FRAX calculation should only be performed on patients in the osteopenia bone density category. Therefore, FRAX was not performed on this patient. 3. Treatment Recommendations: NOF guidelines recommend consideration for treatment in postmenopausal women and men age 50 and older presenting with the following: -A hip or vertebral (clinical or morphometric) fracture. -T-score less than or equal to -2.5 at the femoral neck or spine after appropriate evaluation to exclude secondary causes. -Low bone mass at the hip or spine and a 10-year fracture probability by FRAX of greater than or equal to 3% for hip fracture or greater than or equal to 20% for major osteoporotic fracture based on the [place] adapted WHO algorithm. 4. Other Recommendations: All treatment decisions require clinical judgment and consideration of individual patient factors, including patient preferences, comorbidities, previous drug use, risk factors not captured in the FRAX model (e.g. frailty, falls, vitamin D deficiency, increased bone turnover, interval significant decline in bone density) and possible under or overestimation of fracture risk by FRAX. Additional medical evaluation for secondary cause of low bone mineral density may be appropriate. FUTURE SCAN RECOMMENDATION: People with diagnosed cases of osteoporosis or at high risk for fracture should have regular bone mineral density tests. For patients eligible for Medicare, routine testing is allowed once every 2 years. The testing frequency can be increased to one year for patients who have rapidly progressing disease, those who are receiving or discontinuing medical therapy to restore bone mass, or have additional risk factors.
== END 2024-01-25 11:03 | disposition home or self-care (01) ==
LOC: HO.MAMMO 11:02
PROVIDERS: PCP Internal Medicine; Visit Provider Internal Medicine
DX: M81.0 Age-related osteoporosis without current pathological fracture (principal); R92.1 Mammographic calcification found on diagnostic imaging of breast
CPT/HCPCS: 77062; 77066; 77080

== ENCOUNTER 2024-05-05 09:14 | Outpatient (REF) | payer OTHER, SELFPAY ==
[2024-05-05 11:07] LABS: Cholesterol 160 mg/dL (<200); HDL Cholesterol 48 mg/dL (>40); LDL Cholesterol Calculated 89 mg/dL (<100); Triglycerides 115 mg/dL (<150)
[2024-05-05 11:08] LABS: Estimated Average Glucose 180 mg/dL; Hemoglobin A1c % 7.9 % (<6.0)
[2024-05-05 12:25] LABS: Appearance Urine Clear; Color Urine Yellow; Glucose Urine UA >=1000 mg/dL (Negative); Leukocyte Esterase Urine Small (1+) (Negative); Nitrite Urine Negative (Negative); PH 5.5 (5.0-9.0); UMIC TRIGGER UACC YES; Urine Blood Negative (Negative); Urine Ketones Negative (Negative); Urine Protein Negative (Neg-Trace)
[2024-05-05 12:28] LABS: Bacteria Urine 4+ (None Seen); Hyaline Casts Urine 0-2 /LPF (0-2); RBC Urine 0-2 /HPF (0-2); Squamous Epithelial Cell Urine 0-2 /HPF (0-2); UACC Culture Trigger YES; WBC Urine 21-50 /HPF (0-5)
[2024-05-05 12:55] LABS: Creatinine Urine 48.11 mg/dL
== END 2024-05-05 09:15 | disposition home or self-care (01) ==
LOC: HO.LAB 09:14
PROVIDERS: PCP Internal Medicine; Visit Provider Internal Medicine
DX: E78.00 Pure hypercholesterolemia, unspecified (principal); Z79.4 Long term (current) use of insulin; E11.65 Type 2 diabetes mellitus with hyperglycemia
CPT/HCPCS: 36415; 80061; 81001; 82570; 83036; 87086; 87088; 87186

== ENCOUNTER 2024-05-20 15:34 | Outpatient (AMB) | payer OTHER, SELFPAY ==
[2024-05-20 15:46] VITALS: BP 156/84; PULSE 56; O2SAT 98; BMI 37.2
--- NOTE | 2024-05-20 15:46 | A.OFFPC_ITS ---
Vital Signs 05/20/24 15:46 05/20/24 16:31 Height 5 ft 3 in Weight 210 lb BMI 37.2 BP 156/84 H 120/60 Blood Pressure Location Lt brachial Lt brachial Position Sitting Sitting Pulse 56 Pulse Source Pulse Oximeter Pulse Oximetry (%) 98 Oxygen Delivery Method Room Air Intake Visit Reasons: 3 month f/u Maintenance Advisor Required: No Compliance Professional: Present Allergies No Known Allergies Allergy (Verified 05/20/24 15:46) Tobacco use date assessed: 12/27/23 Fall risk assessment: No Falls in past year Last assessed Fall Risk: 05/20/24 Dental Screening Dental Screen Date: 12/27/23 HPI 3 month f/u HPI Details 78-year-old obese female with controlled diabetes mellitus hypertension hypercholesterolemia history of osteoporosis atrial fibrillation coming in for follow-up. Last seen in 01/08/2024 patient's colonoscopy is up-to-date mammogram is up-to-date and bone density is up-to-date. Teresa [id number]. complains of feeling tired and sleepy. [facility] Medical History Paroxysmal atrial fibrillation Decompensated heart failure Myocardial injury Breast nodule Hyperlipidemia Pain and swelling of lower extremity Osteopenia Breast cancer screening by mammogram Yeast infection involving the vagina and surrounding area Dysuria TIA (transient ischemic attack) Constipation Obesity (BMI 30-39.9) Vitamin D deficiency Anemia Type 2 diabetes mellitus with hyperglycemia Elevated cholesterol HTN (hypertension) Surgical History History of cyst of breast Status post right knee replacement History of appendectomy Family History Father Diabetes Hypertension Mother No problems noted. 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 1. Little interest or pleasure in doing things: not at all 2. Feeling down, depressed, or hopeless: not at all 3. Trouble falling or staying asleep, or sleeping too much: not at all 4. Feeling tired or having little energy: not at all 5. Poor appetite or overeating: not at all 6. Feeling bad about yourself - or that you are a failure or have let yourself or your family down: not at all 7. Trouble concentrating on things, such as reading the newspaper or watching television: not at all 8. Moving or speaking so slowly that other people could have noticed. Or the opposite - being so fidgety or restless that you have been moving around a lot more than usual: not at all 9. Thoughts that you would be better off or of hurting yourself in some way: not at all Total score: 0 Depression Screening Interpretation: Negative Depression Screening Done: Yes Source: Developed by Drs. Pramod Mi, Colleen Norris, Noah Anderson and colleagues, with an educational salome from [employer]. Thrive Questionnaire Date Thrive assessed: 05/20/24 I am a: Patient What is your living situation today?: I have a steady place to live Within the past 12 months, did the food you bought not last and you didn't have the money to get more?: Never true Within the past 12 months, did you worry whether your food would run out before you got money to buy more?: Never true Do you have trouble paying for medicines?: No Do you have trouble getting transportation to medical appointments?: No Do you have trouble paying your heating and electricity bill?: No Do you have trouble taking care of your child, family member or friend?: No Do you have trouble with day-to-day activities such as bathing, preparing meals, shopping, managing finances, etc.?: No Are you currently unemployed and looking for a job?: No Are you interested in more education?: No Please select the resources that you would like help with: None THRIVE Score: 0 ROSEMARIE-7 AMB Questionnaire ROSEMARIE-7 Date ROSEMARIE - 7 assessed: 12/27/23 Source: Developed by Drs. Pramod Mi, Colleen Norris, Noah Anderson and colleagues, with an educational salome from [employer]. Physical exam (Primary Care) Vital Signs: Last Vital Signs Pulse 56 05/20/24 15:46 BP 156/84 H 05/20/24 15:46 Pulse Ox 98 05/20/24 15:46 Oxygen Delivery Method Room Air 05/20/24 15:46 BMI result Body Mass Index 37.2 Tobacco/Smoking Status: Tobacco use Status Tobacco use date assessed 12/27/23 05/20/24 15:47 Patient Tobacco Use Status Never used Tobacco 05/20/24 15:47 e-Cigarette/Vaping Use Never Used 05/20/24 15:47 PHQ-9: PHQ-9 Score PHQ-9: Total score 0 05/20/24 15:58 Depression Screening Interpretation: Negative Thrive Assessment: Date of Thrive Assessment Date Thrive assessed 05/20/24 05/20/24 15:47 Const General: alert; No acute distress Eyes Conjunctivae: conjunctivae normal Resp Auscultation: clear to auscultation bilaterally Cardio Rate: regular rate Rhythm: regular rhythm GI Inspection: Yes normal to inspection Extrem General: Yes normal to inspection and No edema Assessment and Plan Assessment & Plan (1) Type 2 diabetes mellitus with hyperglycemia: Comment: Dr. Galo Code(s): E11.65 - Type 2 diabetes mellitus with hyperglycemia Qualifiers: Diabetes mellitus predatory animal exterminator insulin use: with fpc use Qualified Code(s): E11.65 - Type 2 diabetes mellitus with hyperglycemia; Z79.4 - predatory animal exterminator (current) use of insulin Plan: Decrease the amount of carbohydrate intake, pasta, bread, rice and potatoes are all sugar and that is aside from all the sweet stuff, remember that fruits are good but they are Sweet also. Hemoglobin A1c goal of less than 7.0 patient is on Trulicity Jardiance Levemir insulin. (2) HTN (hypertension): Code(s): I10 - Essential (primary) hypertension Qualifiers: Hypertension type: essential hypertension Qualified Code(s): I10 - Essential (primary) hypertension Plan: Continue with blood pressure medication. Decrease salt intake and exercise metoprolol 25 mg twice a day losartan 100 mg once a day on isosorbide and hydrochlorothiazide. (3) Elevated cholesterol: Code(s): E78.00 - Pure hypercholesterolemia, unspecified Plan: Avoid fried foods, chicken skin, eggs, butter margarine, pastries and meat. Be it pork or beef they have a lot of cholesterol LDL goal of less than 100 and triglyceride of less than 150 on simvastatin 40 mg once a day (4) Obesity (BMI 30-39.9): Code(s): E66.9 - Obesity, unspecified Plan: Diet and exercise (5) Osteoporosis: Comment: November 2021 Code(s): M81.0 - Age-related osteoporosis without current pathological fracture Plan: Patient is reminded about bone density (6) Paroxysmal atrial fibrillation: Code(s): I48.0 - Paroxysmal atrial fibrillation Plan: Continue with anticoagulation with Eliquis. (7) Hypersomnia: Code(s): G47.10 - Hypersomnia, unspecified Orders: Orders RT home sleep study Today G47.10 - Hypersomnia, unspecified Medications: Changed From empagliflozin (Jardiance) 10 mg PO DAILY 30 tabs 6RF To empagliflozin 25 mg PO DAILY 90 days 90 tabs 2RF Coding Level of Care Code Tele Est Pt Level 4 (30010) Complex EM visit Add On G2211 Diagnoses Type 2 diabetes mellitus with hyperglycemia, with long-term current use of insulin E11.65; Z79.4 Diabetes mellitus fpc insulin use: with fpc use Essential hypertension I10 Hypertension type: essential hypertension Elevated cholesterol E78.00 Obesity (BMI 30-39.9) E66.9 Osteoporosis M81.0 Paroxysmal atrial fibrillation I48.0 Hypersomnia G47.10 Additional Codes PHQ-9 - [id number] - PHQ-9 Billing: ([id number])
[2024-05-20 16:31] VITALS: BP 120/60
== END 2024-05-20 16:44 | disposition home or self-care (01) ==
PROVIDERS: PCP Internal Medicine; Visit Provider Internal Medicine
DX: E11.65 Type 2 diabetes mellitus with hyperglycemia (principal); Z79.4 Long term (current) use of insulin; I48.0 Paroxysmal atrial fibrillation; I10 Essential (primary) hypertension; E78.00 Pure hypercholesterolemia, unspecified; E66.9 Obesity, unspecified; M81.0 Age-related osteoporosis without current pathological fracture; G47.10 Hypersomnia, unspecified
CPT/HCPCS: 99214; G2211